=== PATIENT | female | born 1960 | race Caucasian/White ===

== ENCOUNTER 2024-07-03 10:11 | Outpatient (AMB) | payer MEDICARE, SELFPAY ==
--- NOTE | 2024-07-03 10:23 | A.OFFPC_ITS ---
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 Intake Note: New patient visit Lumite Injector Required: No Allergies No Known Allergies Allergy (Verified 07/03/24 10:23) Tobacco use date assessed: 07/03/24 Fall risk assessment: No Falls in past year Last assessed Fall Risk: 07/03/24 Dental Screening Dental Screen Date: 07/03/24 Did you have a dental visit in the last 12 months?: No Did you have a dental problem in the last 6 months where you did not have access to dental care?: No Was dental information given to patient?: Patient declined HPI HPI Comments History of Present Illness Details This is a 64-year-old female with a past medical history of GERD, Escobedo's esophagus, tobacco use disorder, positive hep C antibody and a heart murmur presenting to [facility] care. Patient moved from [place] to [place] in 05/2023. Positive Cologuard-reviewed results of Cologuard dated 02/17/2023. Patient reports last PCP attempted to refer for colonoscopy before she relocated, but it could not be done. Patient thinks her last colonoscopy was possibly in 2019. She does not recall a history of polyps. Denies family history of colon cancer. She has not seen blood in her stools or experienced weight loss or abdominal pain. She has occasional diarrhea. GERD is treated with pantoprazole 40 mg daily, but she ran out of it months ago. She has a history of Escobedo's esophagus. She has had a few EGDs. Patient also reports she has a hiatal hernia. She saw a surgeon, and she was not a candidate for surgical repair. She is a smoker. One pack lasts for a week. Patient tells me that 30 years ago she also had an episode of jaundice, and she was told she had hepatitis-C. She was not treated, and symptoms resolved. She had blood work done in 2021 which I reviewed-negative hep C antibody and no detectable viral load. HIV testing negative in 2021. Asthma is treated with Ventolin as needed. She requires it rarely. She endorses borderline high cholesterol levels. She is not treated with cholesterol medication. She has a mild heart murmur on exam. Patient reports she was told this in the past, and she takes prophylactic amoxicillin before dental procedures. She thinks she has had an echo in the past. She does not remember the details or results. She is due for mammogram and bone density exam. These tests are ordered. ROS: Constitutional: No unexplained weight loss, fever, chills, fatigue or night sweats. Respiratory: No shortness of breath, cough or sputum production. Cardiovascular: No chest pain, chest pressure or chest discomfort. No palpitations or pedal edema. Gastrointestinal: No anorexia, nausea, vomiting or diarrhea. No abdominal pain or blood in stool. Physical exam: Constitutional: Alert, in no distress. Head: Normocephalic. Neck: Supple, Full range of motion. No lymphadenopathy. No palpable thyroid masses. Respiratory: Clear to auscultation. Cardiovascular: S1 S2 regular. I/ murmur Gastrointestinal: Abdomen soft, non-tender, non-distended. Normal bowel sounds. No palpable masses. Skin: Warm, dry Psychiatric: Normal mood and affect [facility] Medical History (Updated 07/03/24 @ 11:28 by WALTER Quiles) Screening for diabetes mellitus (DM) Heart murmur Tobacco use disorder Escobedo esophagus History of positive hepatitis C Positive colorectal cancer screening using Cologuard test Family History (Updated 11/03/23 @ 17:05 by Jeni Gilman [facility]) Unknown Family history of colon cancer Social History Housing: [facility] Patient Tobacco Use Status: Current everyday Tobacco user Cigarette Packs Per Day: 0.25 Years Smoked: 40 e-Cigarette/Vaping Use: Never Used Second Hand Smoke Exposure: No service: Yes 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 1. Little interest or pleasure in doing things: not at all 2. Feeling down, depressed, or hopeless: several days 3. Trouble falling or staying asleep, or sleeping too much: several days 4. Feeling tired or having little energy: several days 5. Poor appetite or overeating: several days 6. Feeling bad about yourself - or that you are a failure or have let yourself or your family down: not at all 7. Trouble concentrating on things, such as reading the newspaper or watching television: not at all 8. Moving or speaking so slowly that other people could have noticed. Or the opposite - being so fidgety or restless that you have been moving around a lot more than usual: not at all 9. Thoughts that you would be better off or of hurting yourself in some way: not at all Total score: 4 Source: Developed by Drs. Fracisco Edward, Klaudia Peters, Main Grant and colleagues, with an educational felipe from [employer]. Thrive Questionnaire I am a: Patient What is your living situation today?: I have a steady place to live Within the past 12 months, did the food you bought not last and you didn't have the money to get more?: Never true Within the past 12 months, did you worry whether your food would run out before you got money to buy more?: Sometimes True Do you have trouble paying for medicines?: Yes Do you have trouble getting transportation to medical appointments?: No Do you have trouble paying your heating and electricity bill?: Yes Do you have trouble taking care of your child, family member or friend?: No Do you have trouble with day-to-day activities such as bathing, preparing meals, shopping, managing finances, etc.?: No Are you currently unemployed and looking for a job?: No Are you interested in more education?: No Please select the resources that you would like help with: Utilities Currently or been in a relationship where the following occur: No concerns reported THRIVE Score: 2 AUDIT C Alcohol Use Questionnaire (AUDIT-C) 1. How often do you have a drink containing alcohol?: Monthly or less 2. How many drinks containing alcohol do you have on a typical day when you are drinking?: 1 or 2 3. How often do you have six or more drinks on one occasion?: Never Total Score: 1 HAYDEN-7 AMB Questionnaire HAYDEN-7 Feeling nervous, anxious, or on edge: 1 = Several days Not being able to stop or control worryin = Several days Worrying too much about different things: 0 = Not at all Trouble relaxin = Not at all Being so restless that it is hard to sit still: 0 = Not at all Feeling afraid as if something awful might happen: 1 = Several days Source: Developed by Drs. Fracisco Edward, Klaudia Peters, Main Grant and colleagues, with an educational felipe from [employer]. Physical exam (Primary Care) Vital Signs: Last Vital Signs Pulse 80 07/03/24 10:33 Resp 14 07/03/24 10:33 BP 114/60 07/03/24 10:33 Pulse Ox 99 07/03/24 10:33 Oxygen Delivery Method Room Air 07/03/24 10:33 BMI result Body Mass Index 36.4 Tobacco/Smoking Status: Tobacco use Status Tobacco use date assessed 07/03/24 07/03/24 10:26 Patient Tobacco Use Status Current everyday Tobacco 07/03/24 10:35 e-Cigarette/Vaping Use Never Used 07/03/24 10:26 PHQ-9: PHQ-9 Score PHQ-9: Total score 4 07/03/24 11:00 Currently or been in a relationship where the following occur: No concerns reported Coding Level of Care Code New Pt Level 4 (54790) Complex EM visit Add On G2211 Diagnoses History of positive hepatitis C Z86.19 Gastroesophageal reflux disease without esophagitis K21.9 Esophagitis presence: without esophagitis Positive colorectal cancer screening using Cologuard test R19.5 Escoebdo esophagus K22.70 Tobacco use disorder F17.200 Heart murmur R01.1 Assessment & Plan Assessment & Plan (1) History of positive hepatitis C: Code(s): Z86.19 - Personal history of other infectious and parasitic diseases Category: Medical Plan: Check hepatitis a, B and C profile and hep C viral load. Reassured patient that last testing was negative. Declines additional screening for STIs. (2) GERD (gastroesophageal reflux disease): Code(s): K21.9 - Gastro-esophageal reflux disease without esophagitis Category: Medical Qualifiers: Esophagitis presence: without esophagitis Qualified Code(s): K21.9 - Gastro-esophageal reflux disease without esophagitis Plan: GERD and Escobedo's esophagus treatment discussed with patient. The importance of smoking cessation is reviewed. Restart pantoprazole 40 mg daily. Refer to Gastroenterology. (3) Positive colorectal cancer screening using Cologuard test: Code(s): R19.5 - Other fecal abnormalities Category: Medical Plan: Referred urgently (since this result was over a year ago) to Gastroenterology for consideration of colonoscopy. (4) Escobedo esophagus: Code(s): K22.70 - Escobedo's esophagus without dysplasia Category: Medical Plan: See above notes on GERD and Escobedo's. (5) Tobacco use disorder: Code(s): F17.200 - Nicotine dependence, unspecified, uncomplicated Category: Medical Plan: Patient declines referral or medications for smoking cessation. She will quit again on her own, she says. (6) Heart murmur: Code(s): R01.1 - Cardiac murmur, unspecified Category: Medical Plan: I will review her medical records and order and order follow up echocardiogram or cardiology consult if appropriate. Plan Follow up in 8 weeks to review labs. Orders: Orders TSH reflex Free T4 Today K21.9 - Gastro-esophageal reflux disease without esophagitis, Z13.6 - Encounter for screening for cardiovascular disorders Hepatitis A IgM Today Z86.19 - Personal history of other infectious and parasitic diseases HCV RNA QN PROG TO GENOTYPE Today Z86.19 - Personal history of other infectious and parasitic diseases MM screening mammo BI Today Z12.31 - Encounter for screening mammogram for malignant neoplasm of breast XR DEXA axial skeleton Today N95.1 - Menopausal and female climacteric states Lipid Panel Today E78.5 - Hyperlipidemia, unspecified, K21.9 - Gastro- esophageal reflux disease without esophagitis, Z13.6 - Encounter for screening for cardiovascular disorders Comprehensive Met. Panel Today K21.9 - Gastro-esophageal reflux disease without esophagitis, Z13.6 - Encounter for screening for cardiovascular disorders Complete Blood Count no Diff Today K21.9 - Gastro-esophageal reflux disease without esophagitis, Z13.6 - Encounter for screening for cardiovascular disorders Hepatitis A,B,C Profile Today Z86.19 - Personal history of other infectious and parasitic diseases Referrals Gastroenterology Referral K21.9 - Gastro-esophageal reflux disease without esophagitis, K22.70 - Escobedo's esophagus without dysplasia, R19.5 - Other fecal abnormalities, Z86.19 - Personal history of other infectious and parasitic diseases Medications: New pantoprazole 40 mg PO DAILY 90 tabs 3RF
[2024-07-03 10:33] VITALS: BP 114/60; PULSE 80; RESP 14; O2SAT 99; BMI 36.4
== END 2024-07-03 11:19 | disposition home or self-care (01) ==
PROVIDERS: Visit Provider Physician Assistant Medical
DX: Z86.19 Personal history of other infectious and parasitic diseases (principal); K21.9 Gastro-esophageal reflux disease without esophagitis; R19.5 Other fecal abnormalities; K22.70 Barrett's esophagus without dysplasia; F17.200 Nicotine dependence, unspecified, uncomplicated; R01.1 Cardiac murmur, unspecified

== ENCOUNTER → 2024-07-03 10:11 | Outpatient (BNVA) | payer MEDICARE, SELFPAY | PROVIDERS: Visit Provider Physician Assistant Medical | DX: K21.9 Gastro-esophageal reflux disease without esophagitis (principal); K22.70 Barrett's esophagus without dysplasia; R19.5 Other fecal abnormalities; R01.1 Cardiac murmur, unspecified; F17.210 Nicotine dependence, cigarettes, uncomplicated; Z86.19 Personal history of other infectious and parasitic diseases | CPT/HCPCS: 96127; 99202 ==

== ENCOUNTER 2024-07-13 09:04 | Outpatient (AMB) | payer MEDICARE, SELFPAY ==
--- NOTE | 2024-07-13 09:10 | A.OFFPC_ITS ---
Vital Signs 07/13/24 09:14 Height 4 ft 11 in Weight 178 lb 6 oz BMI 36.0 BP 124/56 L Blood Pressure Location Lt brachial Position Sitting Respiration 14 Pulse 73 Pulse Source Pulse Oximeter Temp 98.7 F Temp Source Skin Pulse Oximetry (%) 98 Oxygen Delivery Method Room Air Intake Visit Reasons: Dizziness Intake Note: Patient here just for follow up and patient needs refill on meds [employer] Required: No Allergies No Known Allergies Allergy (Verified 07/13/24 09:13) Tobacco use date assessed: 07/03/24 Dental Screening Dental Screen Date: 07/03/24 HPI HPI Comments History of Present Illness Details This is a 64-year-old female with a past medical history of esophageal dysmotility, depression, heart murmur, Barretts esophagus and GERD presenting for a problem visit. She recently established care, and when the nurse reached back out to her to let her know I had scheduled an echocardiogram for evaluation of her known heart murmur, she informed her that she has been having chest pains intermittently for the past 10 years numbness in her feet. The patient reports she has been evaluated for chest pain in the past. The episodes last 15-20 minutes. They occur abruptly and are described as an 8/10 sharp aching across the chest. When they occur she lays down and takes 2 aspirin, and the pain subsides. They are not triggered by a specific activity like walking, running or eating. Sometimes she has nausea with the pain. The pain does not radiate. She has no neck or jaw discomfort or heaviness in her arms. She endorses some dyspnea on exertion for the past 2-3 years. She feels more easily fatigued with exertion. She does not have chest pain with exertion. Patient says she can go up 2 flights of stairs but then she has to stop and rest. She has a diagnosis of asthma. She uses an inhaler as needed rarely. Her chief asthma symptom is wheezing. She does not get coughing or wheezing with WARD. Patient says she has had many EKGs for evaluation of chest pain, and they are normal. Patient says her past primary care provider attributed the symptoms to reflux. She went to [facility] in October of this year for evaluation of chest pain. She had a negative chest x-ray, and her EKG showed normal sinus rhythm and no ischemic changes. We obtained the ER visit notes. She endorses numbness on the bottoms of her feet that started a year ago. The left is more significant than the right. It is not painful. She says it is a little puffy and discolored. She has only mild intermittent lower back pain. Back pain does not radiate down her legs. There is no loss of bowel or bladder control. She denies weakness in her feet or legs. No known history of diabetes. She was an alcoholic, but she quit drinking 30 years ago. She requests a referral for an eye exam. ROS: Constitutional: No unexplained weight loss, fever, chills, fatigue or night sweats. Respiratory: See HPI. Cardiovascular: No palpitations. See HPI. Neurologic: No headache, dizziness, syncope Hematologic/Lymphatics: No bleeding or bruising. Endocrine: No cold or heat intolerance. No polyuria or polydipsia. Physical exam: Constitutional: Alert, in no distress. Head: Normocephalic. Neck: Supple, Full range of motion. No lymphadenopathy. No palpable thyroid masses. Respiratory: Clear to auscultation. Cardiovascular: S1 S2 regular. 1/6murmur. Neurologic: No focal neurological deficits. Extremities: DP pulses 2+ bilaterally. The plantar surfaces of the feet are slightly mottled, bilateral capillary refill is greater than 3 seconds. There are significant varicose veins on the lower extremities and feet. There is mild edema of the plantar surfaces of the feet. Psychiatric: Normal mood and affect [facility] Medical History (Updated 07/13/24 @ 14:05 by WALTER Quiles) Mild asphyxia WARD (dyspnea on exertion) Varicose veins of both legs with edema Varicose veins of ankle Chest pain Numbness in feet Esophageal dysmotility History of depression History of malignant neoplasm of cervix Screening for diabetes mellitus (DM) Heart murmur Tobacco use disorder Escobedo esophagus History of positive hepatitis C Positive colorectal cancer screening using Cologuard test Surgical History (Updated 07/03/24 @ 13:34 by WALTER Quiles) S/P surgery on nasal septum History of tonsillectomy Family History (Updated 11/03/23 @ 17:05 by GENET Tay) Unknown Family history of colon cancer Social History Housing: House Patient Tobacco Use Status: Current everyday Tobacco user Cigarette Packs Per Day: 0.25 Years Smoked: 40 e-Cigarette/Vaping Use: Never Used Second Hand Smoke Exposure: No service: Yes 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 93667 - PHQ-9 Billing: Patient declined-do not bill Source: Developed by Drs. Fracisco Edward, Klaudia Peters, Main Grant and colleagues, with an educational felipe from [employer]. Thrive Questionnaire Date Thrive assessed: 07/13/24 I am a: Patient What is your living situation today?: I have a steady place to live Within the past 12 months, did the food you bought not last and you didn't have the money to get more?: Never true Within the past 12 months, did you worry whether your food would run out before you got money to buy more?: Sometimes True Do you have trouble paying for medicines?: Yes Do you have trouble getting transportation to medical appointments?: No Do you have trouble paying your heating and electricity bill?: Yes Do you have trouble taking care of your child, family member or friend?: No Do you have trouble with day-to-day activities such as bathing, preparing meals, shopping, managing finances, etc.?: No Are you currently unemployed and looking for a job?: No Are you interested in more education?: No Please select the resources that you would like help with: Utilities Currently or been in a relationship where the following occur: No concerns reported THRIVE Score: 2 HAYDEN-7 AMB Questionnaire HAYDEN-7 Date HAYDEN - 7 assessed: 07/13/24 Feeling nervous, anxious, or on edge: 0 = Not at all Not being able to stop or control worryin = Not at all Worrying too much about different things: 0 = Not at all Trouble relaxin = Not at all Being so restless that it is hard to sit still: 0 = Not at all Becoming easily annoyed or irritable: 2 = More than half the days Feeling afraid as if something awful might happen: 0 = Not at all Total HAYDEN-7 score (0-4 normal; 5-9 mild; 10-14 moderate; 15-21 severe): 2 Source: Developed by Drs. Fracisco Edward, Klaudia Peters, Main Grant and colleagues, with an educational felipe from [employer]. HAYDEN-7 Assessment Billing HAYDEN-7 Assessment Tool: HAYDEN-7 Assessment 26997 Physical exam (Primary Care) Vital Signs: Last Vital Signs Temp 98.7 F 07/13/24 09:14 Pulse 73 07/13/24 09:14 Resp 14 07/13/24 09:14 BP 124/56 L 07/13/24 09:14 Pulse Ox 98 07/13/24 09:14 Oxygen Delivery Method Room Air 07/13/24 09:14 BMI result Body Mass Index 36.0 Tobacco/Smoking Status: Tobacco use Status Tobacco use date assessed 07/03/24 07/13/24 09:12 Patient Tobacco Use Status Current everyday Tobacco 07/13/24 09:12 e-Cigarette/Vaping Use Never Used 07/13/24 09:12 Thrive Assessment: Date of Thrive Assessment Date Thrive assessed 07/13/24 07/13/24 09:12 Currently or been in a relationship where the following occur: No concerns reported Coding Level of Care Code Est Pt Level 5 (34004) Complex EM visit Add On G2211 Diagnoses Chest pain R07.9 Varicose veins of both legs with edema I83.893 WARD (dyspnea on exertion) R06.09 Additional Codes HAYDEN-7 Assessment Billing - HAYDEN-7 Assessment Tool: HAYDEN-7 Assessment 21356 ([id number]) Time Spent (min) 47 Comment Direct patient care, records review and completing documentation Assessment & Plan Assessment & Plan (1) Chest pain: Code(s): R07.9 - Chest pain, unspecified Category: Medical (2) Varicose veins of both legs with edema: Code(s): I83.893 - Varicose veins of bilateral lower extremities with other complications Category: Medical (3) WARD (dyspnea on exertion): Code(s): R06.09 - Other forms of dyspnea Category: Medical Plan I ordered an echocardiogram previously for evaluation of the murmur which I suspect is unrelated to chest pain. Discussed this may be related to esophageal spasms and GERD based on description. Does not get exertional chest pain. I will proceed with nuclear stress test given reports of WARD and risk factors for atherosclerotic heart disease in this patient with a history of tobacco use. Warning signs warranting ER evaluation of chest pain reviewed with the patient. Chest x-ray negative at ED within the past year. Ordered PFT due to WARD. She will have her labs completed. Patient has bilateral significant varicosities and lower extremity symptoms. Refer to vascular surgery. Owing to report of numbness we will check electrolytes, magnesium, B12 and hemoglobin A1c. We will consider EMG for further evaluation. She has a follow up scheduled with me in August. Orders: Orders Vitamin B12 Today R20.0 - Anesthesia of skin Hemoglobin A1c Today R20.0 - Anesthesia of skin PFT pulmonary function test Today P84 - Other problems with , R06.09 - Other forms of dyspnea NM cardiolite stress test Today R06.09 - Other forms of dyspnea, R07.9 - Chest pain, unspecified Magnesium Today R20.0 - Anesthesia of skin CA stress test Today R06.09 - Other forms of dyspnea, R07.9 - Chest pain, unspecified Referrals Vascular Surgery Referral I83.893 - Varicose veins of bilateral lower extremities with other complications, I83.90 - Asymptomatic varicose veins of unspecified lower extremity, R20.0 - Anesthesia of skin Patient Instructions: You will be called to schedule an appointment with the vascular specialist. Please have fasting labs completed at your earliest convenience. I am going order pulmonary function test. You will be called to schedule it. You will be called to schedule a stress test.
[2024-07-13 09:14] VITALS: BP 124/56; PULSE 73; RESP 14; TEMP 37.1; O2SAT 98; BMI 36.0
== END 2024-07-13 09:49 | disposition home or self-care (01) ==
LOC: HO.HMCFM 09:04
PROVIDERS: PCP Physician Assistant Medical; Visit Provider Physician Assistant Medical
DX: R07.9 Chest pain, unspecified (principal); I83.893 Varicose veins of bilateral lower extremities with other complications; R06.09 Other forms of dyspnea

== ENCOUNTER → 2024-07-13 09:04 | Outpatient (BNVA) | payer MEDICARE, SELFPAY | PROVIDERS: Visit Provider Physician Assistant Medical | DX: R07.9 Chest pain, unspecified (principal); R01.1 Cardiac murmur, unspecified; R06.09 Other forms of dyspnea; I83.893 Varicose veins of bilateral lower extremities with other complications | CPT/HCPCS: 96127; 99212 ==

== ENCOUNTER 2024-07-21 08:50 | Outpatient (AMB) | payer MEDICARE, SELFPAY ==
--- NOTE | 2024-07-21 08:55 | A.OFFVIS_ITS ---
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 Patient states she has veins on her ankles and calves. States she has swelling in her calves as well. 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 She states she also has some calf swelling that occurs. She does spend most of her days on her feet. Complaints include pain in her calves, slight swelling of lower extremities, cramping, fatigue, and heaviness of the lower extremities intermittently. It has been affecting their daily activities including walking and standing. It equal bilaterally in both lower extremities. She smokes approximately 1 pack per week, but has been a smoker for an extended period of time. She is nondiabetic Patient denies any previous venous surgery or injections. Patient denies any history of DVT/ PE. Patient denies any history of phlebitis. Trial of compression includes - elevation helps a little bit. She has not tried compression stockings yet They now present for vascular evaluation regarding their varicose veins. [facility] Medical History Mild asphyxia WARD (dyspnea on exertion) Varicose veins of both legs with edema Varicose veins of ankle Chest pain Numbness in feet Esophageal dysmotility History of depression History of malignant neoplasm of cervix Screening for diabetes mellitus (DM) Heart murmur Tobacco use disorder Escobedo esophagus History of positive hepatitis C Positive colorectal cancer screening using Cologuard test Surgical History S/P surgery on nasal septum History of tonsillectomy Family History Unknown Family history of colon cancer Social History Housing: House Patient Tobacco Use Status: Current everyday Tobacco user Cigarette Packs Per Day: 0.25 Years Smoked: 40 e-Cigarette/Vaping Use: Never Used Second Hand Smoke Exposure: No service: Yes 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[employer], 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.) Current occupational exposures/hazards: No Cognitive needs: No Hearing needs: Yes (Need ears flushed.) Vision needs: No Review of Systems Const Reports as per HPI and Denies weakness ENT Reports Normal hearing present and Denies dizziness Card Reports as per HPI, Denies chest pain, Denies chest pain at rest, Denies chest pain with activity, Denies dyspnea and Denies dyspnea on exertion Resp Reports as per HPI, Denies cough, Denies dyspnea and Denies dyspnea on exertion GI Reports as per HPI, Denies abdominal pain, Denies nausea and Denies vomiting Musc Denies numbness Skin/Breast Reports as per HPI, Denies erythema and Denies wounds Neuro Reports Normal hearing present, Denies dizziness, Denies numbness, Denies Sensory deficit (Neuro) and Denies weakness Psych Reports no additional complaints Endo Reports no additional complaints Physical Exam Const General: healthy appearing and no acute distress Orientation/consciousness: patient oriented x3 HEENT Head: Yes normal to inspection Ears: hearing grossly normal bilaterally Mouth: Normal oral and palatal mucosa present Resp Effort & Inspection: normal respiratory effort and able to speak in complete sentences Auscultation: clear to auscultation bilaterally Cardio Jugular venous distension: no JVD Rate: regular rate Rhythm: regular rhythm Heart sounds: S1 normal heart sound present and S2 normal heart sound present Bruits: no abdominal aortic bruits, no carotid bruits, no femoral bruits and no renal bruits Peripheral pulses: Peripheral pulses 2+ throughout GI Inspection: Yes normal to inspection Palpation (GI): No Abdominal aortic bruit present Skin General skin exam: no rashes or lesions noted Wounds: no wounds Hair: normal Neuro General: patient oriented x3 Cranial nerves: Yes Normal hearing present Cognition (Neuro): normal cognition Gait exam (Neuro): Normal gait present Motor exam (neuro): 5/5 motor strength present throughout Sensory Exam: No Sensory deficit (Neuro) Extrem Other: Bilateral lower extremities: Spider veins noted around her her ankles and onto her feet. There are also spider veins on her upper thighs on the anterior aspect. Trace peripheral edema bilaterally. Palpable DP pulses. CEAP: C - 3 E - primary A - superficial P - reflux General: Yes normal to inspection, Yes full ROM, Yes capillary refill normal and Yes normal gait Assessment & Plan Assessment & Plan (1) Varicose veins of both lower extremities with inflammation: Code(s): I83.11 - Varicose veins of right lower extremity with inflammation; I83.12 - Varicose veins of left lower extremity with inflammation Category: Medical Plan: Molly is presenting today as a referral from her PCP for ongoing varicose veins over the last couple of years. She is on her feet most days. She has used some elevation as a conservative measure which she states helps only a little bit. In short, the patient has evidence of venous insufficiency. I have discussed the pathophysiology with the patient. In addition I have provided informational material regarding venous disease to the patient. We have discussed conservative measures including compression, elevation, and exercise. I have also provided a handout regarding appropriate use of compression stockings and where to purchase good compression stockings as well. I have taken the liberty of ordering venous insufficiency testing with the patient. They will follow up with me after testing. The patient had an opportunity to ask questions regarding the treatment plan. All questions were answered. No major barriers to understanding were identified. The patient expressed understanding and agreement with the above treatment plan. The patient is aware they should contact our office by phone for worsening of the current condition or the appearance of new symptoms. Thank you for allowing me to participate in the vascular care of this patient. If you have any questions or concerns regarding the treatment for the above condition please do not hesitate to contact me. The office telephone contact is [phone]. This note is constructed using voice recognition software. While every effort has been made to ensure accuracy, shredded filler machine wrapper layer errors may have been included. Thank you for allowing me to participate in the care of your patient. Yours sincerely, WALTER Shi Orders: Orders US venous duplex LE BI 1 Week I83.11 - Varicose veins of right lower extremity with inflammation, I83.12 - Varicose veins of left lower extremity with inflammation Coding Level of Care Code New Pt Level 4 (97708) Diagnoses Varicose veins of both lower extremities with inflammation I83.11; I83.12
== END 2024-07-21 09:13 | disposition home or self-care (01) ==
PROVIDERS: PCP Physician Assistant Medical; Visit Provider Physician Assistant Surgical
DX: I83.11 Varicose veins of right lower extremity with inflammation (principal); I83.12 Varicose veins of left lower extremity with inflammation
CPT/HCPCS: 99204

== ENCOUNTER → 2024-07-21 08:50 | Outpatient (BNVA) | payer MEDICARE, SELFPAY | PROVIDERS: PCP Physician Assistant Medical; Visit Provider Physician Assistant Surgical | DX: I83.11 Varicose veins of right lower extremity with inflammation (principal); I83.12 Varicose veins of left lower extremity with inflammation | CPT/HCPCS: 99202 ==

== ENCOUNTER → 2024-07-28 09:06 | Outpatient (REF) | payer MEDICARE, SELFPAY ==
--- NOTE | 2024-07-28 09:09 | CA_ITS ---
Transthoracic Echocardiogram Patient (Last, First, Middle): Molly Trotter, Gender: Female Date of : 1960 Age: 64 Procedure Date: 07/28/2024 Procedure Type: Transthoracic Echocardiogram Location: OP Height: 152.4 cm Weight: 79.61 kg BSA: 1.77 m2 Heart Rate: 68 bpm BP: 110 / 62 mmHg Resident Athletic Trainer: JEAN-PAUL Espinosa MD: Frieda WATSON [employer] Sales [employer] Management: Malcolm Mast MD Symptoms: R01.1 - Cardiac murmur, unspecified Study Quality: Fair ECG Rhythm: Sinus Conclusions: - Essentially normal study Findings Left Ventricle Normal left ventricular size, thickness, and systolic function. The visually estimated ejection fraction is between 65-70%. Spectral Doppler is indicative of a normal filling pattern. Right Ventricle Normal right ventricular cavity size and systolic function. Atria Both atria are normal in size. There is lipomatous hypertrophy of the interatrial septum. There is no evidence of interatrial shunt. Aortic Valve The aortic valve structure and function is likely normal. There is no aortic valve stenosis. There is no aortic valve regurgitation. Mitral Valve Normal mitral valve structure and function. There is trace mitral valve regurgitation. There is no mitral valve stenosis. Pulmonic Valve The pulmonic valve was not well visualized. Tricuspid Valve Likely normal tricuspid valve structure and function. There is trace tricuspid valve regurgitation. The right ventricular systolic pressure is normal. The right ventricular systolic pressure is 23 mmHg. Normal right atrial pressure. There is no evidence of pulmonary hypertension. Great Vessels All visible segments of the aorta are normal in size. The pulmonary artery was not well visualized. There is no dilatation of the ascending aorta measuring 3.00 cm. Venous The inferior vena cava is normal in size and collapses greater than 50% with inspiration. Pericardium/Pleural There is no evidence of pericardial effusion. Prior Study Comparison No prior study available for comparison. Measurements 2D Linear Measurements IVSd: 1.14 0.6-0.9/0.6-1.0 cm LVIDd: 3.21 3.9-5.3/4.2-5.9 cm LVIDd Index: 1.81 2.4-3.2/2.2-3.1 cm/m2 LVIDs: 1.98 2.0-3.6 cm LVPWd: 1.00 0.7-1.1 cm LA Diam: 3.70 2.7-3.8/3.0-4.0 cm LAIDs Index: 2.09 1.5-2.3 cm/m2 LV Mass: 124.59 67-162/88-224 g LV Mass Index: 70.39 43-95/49-115 g/m2 LVOT Diam: 1.80 3.0+(-)1.3 cm 2D Systolic Function EF 4C: 68.50 >55% EF 2C: 74.80 >55% EF BiP: 71.60 >55% Mitral Valve MV Pk E: 0.97 MV PK A: 0.99 MV Decel Time: 231.00 E/A: 1.00 E'Lateral: 6.74 E'Medial: 5.44 E/E' Med: 17.80 E/E' Lat: 14.40 PHT: 68.00 MVA PHT: 3.24 Decel Osborne: 4.20 Aortic Valve AoV Pk Sotero: 1.92 AoV Mn Sotero: 1.32 AoV VTI: 0.41 AoV Pk Grad: 15.00 Aov Mn Grad: 8.00 RAQUEL Cont.VTI: 2.09 LVOT LVOT Pk Sotero: 1.66 LVOT Mn Sotero: 1.00 LVOT VTI: 0.34 LVOT Pk Grad: 11.00 LVOT Mn Grad: 5.00 LVOT Diam: 1.80 LVOT Area: 2.54 Diastolic Function MV Pk E: 0.97 MV Pk A: 0.99 E/A: 1.00 E'Medial: 5.44 E/E' Med: 17.80 E' Laterial: 6.74 E/E' Lat: 14.40 Right Ventricle TAPSE (mm): 23.20 TVS' Sotero: 13.70 Tricuspid Valve TR Pk Sotero: 2.23 TR Pk Grad: 20.00 RA Press: 3.00 RVSP: 23.00 Great Vessels Aorta Sinus of Valsalva: 3.10 2.0-3.5 cm Ao Asc: 3.00 2.1-3.4 cm Pulmonary Valve PV Pk Sotero: 1.14 Peak PV Grad: 5.00 Updated in Other Vendor System with Status of Final Malcolm Mast MD electronically signed on 07/28/2024 4:17:33 PM with status of Final
== END | disposition home or self-care (01) ==
LOC: HO.CARD 09:06
PROVIDERS: Visit Provider Physician Assistant Medical
DX: R01.1 Cardiac murmur, unspecified (principal)
CPT/HCPCS: 93306

== ENCOUNTER → 2024-07-28 09:09 | Outpatient (BNV) | payer MEDICARE, SELFPAY | PROVIDERS: Visit Provider Internal Medicine Cardiovascular Disease | DX: R01.1 Cardiac murmur, unspecified (principal) | CPT/HCPCS: 93306 ==

== ENCOUNTER 2024-08-21 08:30 | Outpatient (AMB) | payer MEDICARE, MEDICAID, SELFPAY ==
[2024-08-21 08:37] VITALS: BP 128/62; PULSE 82; O2SAT 98; BMI 36.8
--- NOTE | 2024-08-21 08:37 | A.OFFVIS_ITS ---
Vital Signs 08/21/24 08:37 Height 4 ft 11 in Weight 182 lb 1.629 oz BMI 36.8 BP 128/62 Blood Pressure Location Rt brachial Position Sitting Pulse 82 Pulse Source Pulse Oximeter Pulse Oximetry (%) 98 Oxygen Delivery Method Room Air Intake Visit Reasons: GERD, Hx Parasitic Disease, Barretts, Fecal ABN Intake Note: NEW PATIENT Molly presents in office today for a scheduled initial assessment and consult. Prior hx of colo/egd? ~ 2019 per pt. Recently positive cologuard. Meds and Allergies reviewed? Y Any significant concerns or questions? Pt is just concerned about the general details of colonoscopy and the possible interaction they have hx of related to colo prep. Pt also reports intermittent constipation and diarrhea. Pharmacy verified? [facility] [address] [place] Important FMHx? Pt denies any pertinent fmhx Guidance Services Coordinator Required: No Allergies azithromycin Adverse Reaction (Intermediate, Verified 08/21/24 09:00) Nausea colonoscopy prep Adverse Reaction (Intermediate, Uncoded 08/21/24 09:00) Nausea HPI Comments Details: 64 y.o F with PMH of GERD, BE, smoker who is here to establish care. Pt had a cologuard test in February 2023 which was POSITIVE however she then moved from [place] May 2023 before colo could be done (prev GI Dr Saw Sparks in [facility]). Once she estabished care with local PCP winter 2022 a referral was generated but a colo could not take place due to multiple barriers. Was able to switch insurance and PCP again earlier this year and is now here for follow up colonoscopy. Pt herself reports having a change in bowel habits and occ blood in stool. It is unclear why a cologuard was ordered and not a diagnostic colonoscopy for these sx. Pt also has hx of hiatal hernia and reported BE and at one point was getting EGDs every 1-2 years. Takes pantoprazole 40 once a day. Last endoscopy: EGD/colo 2019 - BE (pt told was improving), no polyps. Fam hx of CRC in pat grandfather in his 70s. Sister with UC diagnosed in her 20s with surgical history. Pt smokes 2-4 cigs/day prev 1PPD x 40 years. No etOH use. Occ takes ibuprofen. PCP notes reviewed - also ? of HCV. Pt reports having an admission in the hospital for yellow eyes in 80s which was determined to be of unknown cause. ON LICENSE OF [facility] Medical History Mild asphyxia WARD (dyspnea on exertion) Varicose veins of both legs with edema Varicose veins of ankle Chest pain Numbness in feet Esophageal dysmotility History of depression History of malignant neoplasm of cervix Screening for diabetes mellitus (DM) Heart murmur Tobacco use disorder Escobedo esophagus History of positive hepatitis C Positive colorectal cancer screening using Cologuard test Surgical History S/P surgery on nasal septum History of tonsillectomy Family History Unknown Family history of colon cancer Social History Housing: House Patient Tobacco Use Status: Current everyday Tobacco user Cigarette Packs Per Day: 0.25 Years Smoked: 40 e-Cigarette/Vaping Use: Never Used Second Hand Smoke Exposure: No service: Yes 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, 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.) Current occupational exposures/hazards: No Cognitive needs: No Hearing needs: Yes (Need ears flushed.) Vision needs: No Review of Systems Const All systems reviewed & are unremarkable except as noted in HPI and below Physical Exam Vital Signs: Last Vital Signs Pulse 82 08/21/24 08:37 BP 128/62 08/21/24 08:37 Pulse Ox 98 08/21/24 08:37 Oxygen Delivery Method Room Air 08/21/24 08:37 BMI result Body Mass Index 36.8 No apparent distress Nonicteric Abdomen soft, nondistended Alert and oriented x3, normal gait Assessment & Plan Assessment & Plan (1) Positive colorectal cancer screening using Cologuard test: Code(s): R19.5 - Other fecal abnormalities Category: Medical (2) Escobedo esophagus: Code(s): K22.70 - Escobeod's esophagus without dysplasia Category: Medical (3) GERD (gastroesophageal reflux disease): Code(s): K21.9 - Gastro-esophageal reflux disease without esophagitis Category: Medical Qualifiers: Esophagitis presence: without esophagitis Qualified Code(s): K21.9 - Gastro-esophageal reflux disease without esophagitis (4) Tobacco use disorder: Code(s): F17.200 - Nicotine dependence, unspecified, uncomplicated Category: Medical (5) History of positive hepatitis C: Code(s): Z86.19 - Personal history of other infectious and parasitic diseases Category: Medical (6) Heart murmur: Code(s): R01.1 - Cardiac murmur, unspecified Category: Medical Plan 1. Positive cologuard/change in bowel habits Overdue for colo. This will be set up on urgent basis. Pt describes intolerance to golytely but ok with miralax prep. Plan: - COlo to be booked urgently - Miralax/gatorade prep discussed and instructions reviewed 2. Hx of BE and hiatal hernia Since records not available re BE length and dysplasia presence will also caroline for EGD alongside. Needs one any way due to change in bowel habits and diarrhea. Plan: - EGD to be booked with colo - Barium swallow for eval of hiatal hernia 3. Hx of HCV? This is unclear Plan: - Labs already ordered by PCP. HBV core Ab added. 4. Heart murmur reported by pt. Echo reassuring. Follow up after EGD/colo. Orders: Orders Hepatitis B Core Antibody Today Z86.19 - Personal history of other infectious and parasitic diseases FL barium swallow Today K21.9 - Gastro-esophageal reflux disease without esophagitis Medications: New polyethylene glycol 3350 (Miralax) mix with 64 oz of gatorade for colonoscopy prep 238 grams PO ONCE 238 grams 0RF Coding Level of Care Code New Pt Level 5 (97189) Diagnoses Positive colorectal cancer screening using Cologuard test R19.5 Escobedo esophagus K22.70 Gastroesophageal reflux disease without esophagitis K21.9 Esophagitis presence: without esophagitis Tobacco use disorder F17.200 History of positive hepatitis C Z86.19 Heart murmur R01.1
== END 2024-08-21 10:34 | disposition home or self-care (01) ==
PROVIDERS: PCP Physician Assistant Medical; Visit Provider Internal Medicine
DX: K21.9 Gastro-esophageal reflux disease without esophagitis (principal); R19.5 Other fecal abnormalities; K22.70 Barrett's esophagus without dysplasia; Z86.19 Personal history of other infectious and parasitic diseases; R01.1 Cardiac murmur, unspecified
CPT/HCPCS: 99204

== ENCOUNTER → 2024-08-21 08:30 | Outpatient (BNVA) | payer MEDICARE, SELFPAY | PROVIDERS: PCP Physician Assistant Medical; Visit Provider Internal Medicine | DX: K21.9 Gastro-esophageal reflux disease without esophagitis (principal); K22.70 Barrett's esophagus without dysplasia; R19.5 Other fecal abnormalities; F17.210 Nicotine dependence, cigarettes, uncomplicated; Z86.19 Personal history of other infectious and parasitic diseases | CPT/HCPCS: 99202 ==

== ENCOUNTER 2024-08-22 08:47 | Outpatient (REF) | payer MEDICARE, MEDICAID, SELFPAY ==
--- NOTE | ~2024-08-22 | MM_ITS ---
EXAMINATION: BONE DENSITOMETRY CLINICAL INDICATION: Menopausal and female climacteric states. COMPARISON: This is the patient's baseline examination. TECHNIQUE: Using a [employer] DXA System (software version: 13.1) manufactured by [employer], dual-energy x-ray absorptiometry was performed of the lumbar spine and left hip. The images are of good technical quality. Summary results are attached. FINDINGS: LEFT FEMUR, NECK: BMD 0.827 g/cm2, Z-score -0.4, T-score -1.5, osteopenia. LEFT FEMUR, TOTAL: BMD 0.909 g/cm2, Z-score 0.1, T-score -0.8, normal. AP SPINE L2-L4 (excluding L1): The data of L1-L4 has been changed to exclude the L1 vertebral body, because significant degenerative change at this level may cause overestimation of lumbar spine density. BMD 0.957 g/cm2, Z-score -0.9, T-score -2.0, osteopenia. IDENTIFIED RISK FACTORS: Parental hip fracture, current smoker, menopause. HISTORY OF FRACTURE: None listed. MEDICATIONS: None listed. MM/XR DEXA axial skeleton IMPRESSION: 1. DIAGNOSIS: Osteopenia based on the lowest T-score value of -2.0 in the lumbar spine applying World Health Organization criteria. 2. 10-YEAR FRACTURE RISK PREDICTION, FRAX: Major osteoporotic fracture (clinical spine, forearm, hip or shoulder) 15.9%. Hip fracture 1.6%. 3. Treatment Recommendations: NOF guidelines recommend consideration for treatment in postmenopausal women and men age 50 and older presenting with the following: -A hip or vertebral (clinical or morphometric) fracture. -T-score less than or equal to -2.5 at the femoral neck or spine after appropriate evaluation to exclude secondary causes. -Low bone mass at the hip or spine and a 10-year fracture probability by FRAX of greater than or equal to 3% for hip fracture or greater than or equal to 20% for major osteoporotic fracture based on the [place] adapted WHO algorithm. 4. Other Recommendations: All treatment decisions require clinical judgment and consideration of individual patient factors, including patient preferences, comorbidities, previous drug use, risk factors not captured in the FRAX model (e.g. frailty, falls, vitamin D deficiency, increased bone turnover, interval significant decline in bone density) and possible under or overestimation of fracture risk by FRAX. Additional medical evaluation for secondary cause of low bone mineral density may be appropriate. FUTURE SCAN RECOMMENDATION: People with diagnosed cases of osteoporosis or at high risk for fracture should have regular bone mineral density tests. For patients eligible for Medicare, routine testing is allowed once every 2 years. The testing frequency can be increased to one year for patients who have rapidly progressing disease, those who are receiving or discontinuing medical therapy to restore bone mass, or have additional risk factors. Electronically signed by: Nba Giraldo MD 08/22/2024 04:28 PM NIKOLE GIFFORD
== END 2024-08-22 08:48 | disposition home or self-care (01) ==
LOC: HO.MAMMO 08:47
PROVIDERS: PCP Physician Assistant Medical; Visit Provider Physician Assistant Medical
DX: Z12.31 Encounter for screening mammogram for malignant neoplasm of breast (principal); Z13.820 Encounter for screening for osteoporosis; Z78.0 Asymptomatic menopausal state
CPT/HCPCS: 77063; 77067; 77080

== ENCOUNTER → 2024-08-22 09:00 | Outpatient (BNV) | payer MEDICARE, MEDICAID, SELFPAY | PROVIDERS: PCP Physician Assistant Medical; Visit Provider Internal Medicine | DX: Z12.31 Encounter for screening mammogram for malignant neoplasm of breast (principal) | CPT/HCPCS: 77063; 77067 ==

== ENCOUNTER 2024-08-23 12:18 | Outpatient (REF) | payer MEDICARE, MEDICAID, SELFPAY ==
[2024-08-23 12:52] LABS: Hematocrit 40.6 % (37.0-47.0); Hemoglobin 13.6 g/dl (12.0-16.0); Mean Corpuscular HGB Conc 33.5 g/dl (31.0-35.0); Mean Corpuscular Hemoglobin 26.7 pg (27.0-33.0); Mean Corpuscular Volume 79.6 fL (80.0-98.0); Mean Platelet Volume 9.7 fL (9.4-12.3); Platelet Count 590 X10*3/uL (160-400); Red Cell Distribution Width 17.3 % (11.0-16.0); White Blood Count 6.6 X10*3/uL (4.8-10.8)
[2024-08-23 12:56] LABS: Estimated Average Glucose 114 mg/dL; Hemoglobin A1c % 5.6 % (<6.0)
[2024-08-23 13:29] LABS: Alanine Aminotransferase 20 U/L (0-31); Alkaline Phosphatase 108 U/L (39-117); Anion Gap 9 (12-20); Aspartate Amino Transferase 26 U/L (5-31); Bilirubin Total 0.3 mg/dL (0.0-1.0); Blood Urea Nitrogen 16 mg/dL (9-16); Calcium 9.2 mg/dL (8.4-10.2); Carbon Dioxide 29 mmol/L (22-29); Chloride 105 mmol/L (96-108); Cholesterol 264 mg/dL (<200); Estimated Glomerular Filt Rate > 60; Glucose Random 95 mg/dL (60-115); HDL Cholesterol 70 mg/dL (>40); LDL Cholesterol Calculated 170 mg/dL (<100); Magnesium 2.1 mg/dL (1.6-2.6); Potassium 4.2 mmol/L (3.3-5.1); Sodium 139 mmol/L (135-145); Total Protein 7.3 g/dL (6.5-8.0); Triglycerides 120 mg/dL (<150)
[2024-08-23 13:43] LABS: TSH reflex Free T4 0.95 uIU/mL (0.32-4.0)
[2024-08-23 13:45] LABS: Hepatitis A Antibody IgM 0.32 Index (0-0.79); ~Hepatitis A Antibody IgM Nonreactive (Nonreactive)
[2024-08-23 13:48] LABS: Vitamin B12 417 pg/mL (200-900)
[2024-08-23 13:51] LABS: HBS Num1 0.37 mIU/mL (0-7.99); HBc Num1 0.19 S/CO (0.00-0.79); HBsAGNum1 0.39 S/CO (0.00-0.99); Hepatitis A Antibody IgM 0.29 Index (0-0.79); Hepatitis B Core Antibody Nonreactive (Nonreactive); Hepatitis B Surface Antigen Negative (Negative); ~HepC Num1 3.41 S/CO (0.00-0.79); ~Hepatitis A Antibody IgM Nonreactive (Nonreactive); ~Hepatitis B Surface Antibody NONREACTIVE (Nonreactive); ~Hepatitis C Antibody Reactive (Nonreactive)
[2024-08-24 19:29] LABS: HCV RNA PCR Qn <1.18 NOT DETECTED Log IU/mL (NOT DETECTED); HCV RNA PCR Qn <15 NOT DETECTED IU/mL (NOT DETECTED)
== END 2024-08-23 12:19 | disposition home or self-care (01) ==
LOC: HO.LAB 12:18
PROVIDERS: PCP Physician Assistant Medical; Visit Provider Physician Assistant Medical
DX: Z86.19 Personal history of other infectious and parasitic diseases (principal); K21.9 Gastro-esophageal reflux disease without esophagitis; Z13.6 Encounter for screening for cardiovascular disorders; R20.0 Anesthesia of skin; E78.5 Hyperlipidemia, unspecified; Z13.1 Encounter for screening for diabetes mellitus
CPT/HCPCS: 36415; 80053; 80061; 82607; 83036; 83735; 84443; 85027; 86704; 86706; 86709; 86803; 87340; 87522

== ENCOUNTER 2024-08-29 09:53 | Outpatient (REF) | payer MEDICARE, MEDICAID, SELFPAY ==
--- NOTE | 2024-08-29 10:00 | PFT_ITS ---
Flows: FEV1: 105 % of predicted at 2.16 L FVC: 104 % of predicted at 2.70 L FEV1/FVC: 80 % Bronchodilator response: Absent Volumes: Total lung capacity: 105 % of predicted at 4.59 L Residual volume: 116 % of predicted at 1.85 L Slow vital capacity: 98 % of predicted at 2.74 L Expiratory reserve volume: 72 % of predicted at 0.46 L Diffusion capacity: Normal Impression: No obstructive or restrictive ventilatory defect. No bronchodilator response. Normal pulmonary function test. MTDD
[2024-08-29 10:10] VITALS: PULSE 80; O2SAT 96
== END 2024-08-29 09:54 | disposition home or self-care (01) ==
LOC: HO.RESP 09:53
PROVIDERS: PCP Physician Assistant Medical; Visit Provider Physician Assistant Medical
DX: R06.09 Other forms of dyspnea (principal)
CPT/HCPCS: 94010; 94640; 94727; 94729

== ENCOUNTER → 2024-08-29 10:00 | Outpatient (BNV) | payer MEDICARE, MEDICAID, SELFPAY | PROVIDERS: PCP Physician Assistant Medical; Visit Provider Internal Medicine Pulmonary Disease | DX: R06.09 Other forms of dyspnea (principal) | CPT/HCPCS: 94060; 94727; 94729 ==

== ENCOUNTER → 2024-10-24 10:45 | Outpatient (REF) | payer MEDICARE, MEDICAID, SELFPAY ==
--- NOTE | 2024-10-24 10:49 | CA_ITS ---
Acquisition Time: 2024-10-24 10:50:41 Total Exercise Time: 00:05:21 Test Indications: CP,Dyspnea MURMUR Medications: ALBUTEROL ATORVASTATIN PANTOPRAZOLE Protocol: LAYNE Max HR: 136 BPM 87% of Pred: 155 BPM Max BP: 136/60 mmHG Max Work Load: 5.8 METS Exercise Stress Test with exercise 5 mins 21 secs of Layne Protocol, reduced speed at stage 2 to 2.0 mph, achieving 87% MPHR, with reports of moderate SOB, no chest discomfort, without any arrythmias, with normotensive response to exercise. Without EKG chnages meeting criteria for ischemia. In recovery, breathing returned to baseline. Nuclear images pending. Test reviewed [facility] Dr. Velez. Referred By: Frieda Pablo Electronically Signed By: Jonnathan Sol
--- OUTSIDE RECORDS SUMMARY | 2024-10-24 11:52 | XMS_ITS | Encounter Summary ---
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 Name Role Phone Mayo Pablo NP Primary Care Provider [phone] Reason for Visit * Reason Comments Sore Throat Sore throat since th is am Encounter Details Date Type Department Care Team (Late st Contact Info) Description 10/08/2024 6:56 PM EST - 10/08/2024 11:29 PM EST Emergency [facility] Emergency [address] [place] [address] Hao Bui MD [address] [place] [address] Enteritis (Primary Dx); Nausea; Diarrhea, unspecified type; Pharyngitis, unspecified etiology Discharge Disposition: Home or Self Care Social History Tobacco Use Types Packs/Day Years Used Date Smoking Tobacco: Every Day Cigarettes Smokeless Tobacco: Never Tobacco Cessation:Ready to Q uit: Not Asked; Counseling Given: Not Answered Comments Unknown Sex and Gender Information Value Date Recorded Sex Assigned at Female 10/08/2024 7:44 PM EST Legal Sex Female 5:45 PM EST Gender Identity Female 10/08/2024 7:44 PM EST Sexual Orientation Straight 10/08/2024 7: 44 PM EST documented as of this encounter Last Filed Vital Signs Vital Sign Reading Time Taken Comments Blood Pressure 132/67 10/08/2024 11:10 PM EST Pulse 90 10/08/2024 11:10 PM EST Temperature 37 ??C (98.6 ??F) 10/08/2024 11:10 PM EST Respiratory Rate 17 10/08/2024 11:10 PM EST Oxygen Saturation 99% 10/08/2024 11:10 PM EST Inhaled Oxygen Concentration - - Weight 77.1 kg (170 lb) 10/08/2024 5:47 PM EST Height 152.4 cm (5') 10/08/2024 5:47 PM EST Body Mass Index 33.2 10/08/2024 5:47 PM EST documented in this encounter Functional Status * Are you deaf or do you have serious difficulty hearing? Answer Date of Assessment Author No 10/08/2024 6:56 PM EST Chávez RN * Are you blind or do you have serious difficulty seeing, even when wearing glasses? Answer Date of Assessment Author No 10/08/2024 6:56 PM EST Chávez RN * Do you have serious difficulty walking or climbing stairs? Answer Date of Assessment Author No 10/08/2024 6:56 PM EST Chávez RN * Do you have serious difficulty dressing or bathing? Answer Date of Assessment Author No 10/08/2024 6:56 PM EST Chávez RN * Because of a physical, mental, or emotional condition, do you have serious difficulty doing errandsalone such as visiting the doctor? Answer Date of Assessment Author No 10/08/2024 6:56 PM EST Chávez RN documented as of this encounter Mental Status * Because of a physical, mental, or emotional condition, do you have serious difficulty concentrating, remembering, or making decisions? (5 years old or older) Answer Entry Date Author No 10/08/2024 6:56 PM EST Chávez RN documented in this encounter Discharge Instructions * Discharge Instructions* WALTER Rain - 10/08/2024 10:42 PM EST Well-appearing. CT unremarkable. Patient discharged to follow-up outpatient with primary care doctor. documented in this encounter Medications at Time of Discharge amoxicillin (AMOXIL) 500 mg capsule Take 1 capsule (500 mg total) by mouth every 12 (twelve) hours for 10 days. 20 each 10/08/2024 5 benzocaine-menthoL (Cepacol Sore Throat, ronni-men,) 15-2.[address] 1 lozenge into mouth between cheek and gum 3 (three) times a day for 14 days. 28 lozenge 10/08/2024 5 famotidine (PEPCID) 20 mg tablet Take 1 tablet (20 mg total) by mouth 2 (two) times a day for 15 days. 30 tablet 10/08/2024 5 loperamide (IMODIUM) 2 mg capsule Take 1 capsule (2 mg total) by mouth 4 (four) times a day if needed for diarrhea for up to 3 days. 12 capsule 10/08/2024 5 ondansetron ODT (ZOFRAN-ODT) 4 mg disintegrating tablet Let 1 tablet dissolve under the tongue three times daily as needed for nausea or vomiting. 10 tablet 10/08/2024 5 documented as of this encounter Ordered Prescriptions Prescription Sig Dispense Quantity Refills Last Filled Start Date End Date amoxicillin (AMOXIL) 500 mg capsule Take 1 capsule (500 mg total) by mouth every 12 (twelve) hours for 10 days. 20 each 10/08/2024 5 benzocaine-menthoL (Cepacol Sore Throat, ronni-men,) 15-2.[address] 1 lozenge into mouth between cheek and gum 3 (three) times a day for 14 days. 28 lozenge 10/08/2024 5 amoxicillin (AMOXIL) 500 mg capsule Take 1 capsule (500 mg total) by mouth every 12 (twelve) hours for 10 days. 20 each 10/08/2024 5 famotidine (PEPCID) 20 mg tablet Take 1 tablet (20 mg total) by mouth 2 (two) times a day for 15 days. 30 tablet 10/08/2024 5 loperamide (IMODIUM) 2 mg capsule Take 1 capsule (2 mg total) by mouth 4 (four) times a day if needed for diarrhea for up to 3 days. 12 capsule 10/08/2024 5 ondansetron ODT (ZOFRAN-ODT) 4 mg disintegrating tablet Let 1 tablet dissolve under the tongue three times daily as needed for nausea or vomiting. 10 tablet 10/08/2024 documented in this encounter Discharge Disposition Disposition Code Departure Means Destination Comment s Home or Self Care documented in this encounter Progress Notes * Kita Jolley RN - 10/08/2024 5:53 PM EST C/o severe sore throat that started this am and has been getting worse. Denies fevers, but says shehas a new cough developing. * WALTER Rain - 10/08/2024 5:45 PM EST Emergency Medicine Note Patient Name: Molly Trotter Initial Evaluation: 10/08/2024 : 1960 Patient's PCP: Mayo Pablo NP Emergency Physician: WALTER Nevarez History of Present Illness Chief Complaint: Chief Complaint Patient presents with Sore Throat Sore throat since this am HPI: 64-year-old female here today complaining of diarrhea nausea intermittent abdominal pain with a sore throat. Began this morning. Denies any vomiting fever chills. Patient does complain of bodyaches. Denies any dysuria urgency or frequency. ROS: I have performed a ROS with the pertinent positives and negatives documented in the history ofpresent illness. Previous History Past Medical History: Diagnosis Date Cancer (CMS/HCC) Hypertension History reviewed. No pertinent surgical history. Social History Tobacco Use Smoking status: Every Day Types: Cigarettes Smokeless tobacco: Never No family history on file. is allergic to azithromycin. No current facility-administered medications on file prior to encounter. No current outpatient medications on file prior to encounter. Physical Exam ED Triage Vitals [10/08/24 1747] Temp Heart Rate Resp BP 37.1 ??C (98.8 ??F) (!) 113 20 117/59 SpO2 Temp Source Heart Rate Source Patient Position -- Oral Right -- BP Location FiO2 (%) Right arm -- Physical Exam Vitals and nursing note reviewed. Constitutional: Appearance: She is well-developed. HENT: Head: Normocephalic. Mouth/Throat: Mouth: Mucous membranes are moist. Pharynx: Uvula midline. Posterior oropharyngeal erythema present. No pharyngeal swelling. Eyes: Conjunctiva/sclera: Conjunctivae normal. Pupils: Pupils are equal, round, and reactive to light. Cardiovascular: Rate and Rhythm: Normal rate and regular rhythm. Pulmonary: Effort: Pulmonary effort is normal. Breath sounds: Normal breath sounds. Abdominal: Comments: Hyperactive bowel sounds. Diffuse tender throughout. No peritoneal signs noted. Nondistended no focal tenderness Musculoskeletal: Cervical back: Normal range of motion. Skin: General: Skin is warm. Capillary Refill: Capillary refill takes less than 2 seconds. Neurological: General: No focal deficit present. Mental Status: She is alert and oriented to person, place, and time. Psychiatric: Mood and Affect: Mood normal. Behavior: Behavior normal. Results Labs Reviewed COMPREHENSIVE METABOLIC PANEL - Abnormal Result Value Sodium 137 Potassium 3.9 Chloride 108 CO2 23 Anion Gap 6 Glucose 107 (*) BUN 21 Creatinine 0.75 eGFR 88 BUN/Creatinine Ratio 28.0 Calcium 9.2 AST (SGOT) 19 ALT (SGPT) 20 Alkaline Phosphatase 98 Total Protein 6.9 Albumin 3.6 Total Bilirubin 0.4 CBC WITH AUTO DIFFERENTIAL - Abnormal WBC 12.4 (*) RBC 5.30 (*) Hemoglobin 13.7 Hematocrit 43.5 MCV 82.5 MCH 26.0 (*) MCHC 31.5 (*) RDW 17.2 (*) Platelets 529 (*) MPV 10.9 NRBC 0.0 NRBC Absolute 0.00 Neutrophils Relative 91.1 Lymphocytes Relative 3.9 Monocytes Relative 4.4 Eosinophils Relative 0.2 Basophils Relative 0.1 Immature Granulocytes Relative 0.3 Neutrophils Absolute 11.32 (*) Lymphocytes Absolute 0.48 (*) Monocytes Absolute 0.55 Eosinophils Absolute 0.03 Basophils Absolute 0.01 Immature Granulocytes Absolute 0.04 (*) URINALYSIS WITH REFLEX MICROSCOPIC AND CULTURE - Abnormal Specific [place] Urine 1.030 pH, Urine 5.5 Leukocytes, Urine Negative Nitrite, Urine Negative Protein, Urine 30 (*) Glucose, Urine Negative Ketones, Urine Negative Urobilinogen, Urine 0.2 Bilirubin, Urine Negative Blood, Urine Negative RBC, Urine 2.4 WBC, Urine 4.1 (*) Squamous Epithelial, Urine 72 (*) Bacteria, Urine Negative Hyaline Casts, Urine 0.8 RESPIRATORY VIRUS PANEL MOLECULAR STUDY - Normal Adenovirus Detection by PCR Not Detected Influenza A PCR Not Detected Influenza B PCR Not Detected Coronavirus 229E Not Detected Coronavirus HKU1 Not Detected Coronavirus OC43 Not Detected Coronavirus NL63 Not Detected Parainfluenza Virus 1 Not Detected Parainfluenza Virus 2 Not Detected Parainfluenza Virus 3 Not Detected Parainfluenza Virus 4 Not Detected RSV PCR Not Detected Human Metapneumovirus A and B Not Detected Rhinovirus/Enterovirus Not Detected Bordetella pertussis Not Detected Bordetella parapertussis Not Detected Mycoplasma pneumo by PCR Not Detected Chlamydia pneumoniae Not Detected SARS COV-2 Not Detected Narrative: Testing was performed using the [employer] Respiratory Pathogen PCR Assay. All results must be correlated with the clinical findings. Results should not be used as the sole basis for diagnosis. False Negative results may occur from the presence of sequence variants in the region targeted by the assay or the presence of inhibitors. Results may be affected by concurrent antiviral/antimicrobial therapy or levels of organisms that are below the limit of detection. RAPID STREP A SCREEN - Normal Strep A Ag Negative LIPASE - Normal Lipase 22 CULTURE THROAT CBC AND DIFFERENTIAL Narrative: The following orders were created for panel order CBC and differential. Procedure Abnormality Status --------- ------ CBC auto differential[[id number]] Abnormal Final result Please view results for these tests on the individual orders. URINALYSIS WITH REFLEX MICROSCOPIC AND CULTURE Narrative: The following orders were created for panel order Urinalysis with reflex microscopic and culture. Procedure Abnormality Status --------- ------ Urinalysis with reflex ...[[id number]] Abnormal Final result [place] urine culture tube[[id number]] Final result Please view results for these tests on the individual orders. Abnormal Labs Reviewed COMPREHENSIVE METABOLIC PANEL - Abnormal; Notable for the following components: Result Value Glucose 107 (*) All other components within normal limits CBC WITH AUTO DIFFERENTIAL - Abnormal; Notable for the following components: WBC 12.4 (*) RBC 5.30 (*) MCH 26.0 (*) MCHC 31.5 (*) RDW 17.2 (*) Platelets 529 (*) Neutrophils Absolute 11.32 (*) Lymphocytes Absolute 0.48 (*) Immature Granulocytes Absolute 0.04 (*) All other components within normal limits URINALYSIS WITH REFLEX MICROSCOPIC AND CULTURE - Abnormal; Notable for the following components: Protein, Urine 30 (*) WBC, Urine 4.1 (*) Squamous Epithelial, Urine 72 (*) All other components within normal limits CT Abdomen Pelvis w Contrast Final Result Impression: Fluid-filled borderline dilated small bowel with wall thickening Probable acute enteritis pattern This document has been electronically signed by: Jarred Campos MD on 10/08/2024 22:29:45 XR Chest 2 Views (Results Pending) I have discussed the incidental/abnormal imaging and/or lab abnormalities with the patient and haveinstructed them the need for further evaluation and workup with their primary care doctor. I have provided the patient with a paper copy of the abnormality. The laboratory results, imaging results and other diagnostic exam results were reviewed in the EMR. EKG Interpretation Critical Care Time None ? Differential Diagnosis Diverticulitis Colitis Viral syndrome Influenza UTI Pharyngitis Medical Decision Making Well-appearing nontoxic non-lethargic vital signs are stable.Patient given 1 L of normal saline along with 4 mg p.o. of Imodium and 4 mg of Zofran. Will start patient on antibiotics. She does have anerythematous throat. Will order her some lozenge or's. Medications sodium chloride 0.9 % bolus 1,000 mL (0 mL intravenous Stopped 10/08/242139) ondansetron (PF) (ZOFRAN) injection 4 mg (4 mg intravenous Given 10/08/242029) loperamide (IMODIUM) capsule 4 mg (4 mg oral Given 10/08/242029) sodium chloride 0.9 % flush 10 mL (10 mL intravenous Given 10/08/242200) iopamidoL (ISOVUE-370) 370 mg iodine /mL (76 %) injection 90 mL (90 mL intravenous Given 10/08/242201) Clinical Impressions as of 10/08/248 Enteritis Nausea Diarrhea, unspecified type Pharyngitis, unspecified etiology Amount and/or Complexity of Data Reviewed External Data Reviewed: Encounters reviewed in Chart Review. Details: Labs: ordered. Decision-making details documented in ED Course. Radiology: ordered. Decision-making details documented in ED Course. ECG/medicine tests: ordered. Decision-making details documented in ED Course. Procedures Procedures Diagnosis 1. Enteritis 2. Nausea 3. Diarrhea, unspecified type 4. Pharyngitis, unspecified etiology Disposition Discharge ED Prescriptions Medication Sig Dispense Start Date End Date Auth. Provider ondansetron ODT (ZOFRAN-ODT) 4 mg disintegrating tablet Let 1 tablet dissolve under the tongue three times daily as needed for nausea or vomiting. 10 tablet 10/08/2024 10/15/2024 WALTER Rain loperamide (IMODIUM) 2 mg capsule Take 1 capsule (2 mg total) by mouth 4 (four) times a day if needed for diarrhea for up to 3 days. 12 capsule 10/08/2024 10/11/2024 WALTER Rain famotidine (PEPCID) 20 mg tablet Take 1 tablet (20 mg total) by mouth 2 (two) times a day for 15 days. 30 tablet 10/08/2024 10/23/2024 WALTER Rain amoxicillin (AMOXIL) 500 mg capsule (Status: Discontinued) Take 1 capsule (500 mg total) by mouth every 12 (twelve) hours for 10 days. 20 each 10/08/2024 10/08/2024 WALTER Rain benzocaine-menthoL (Cepacol Sore Throat, ronni-men,) 15-2.[address] 1 lozenge into mouth between cheek and gum 3 (three) times a day for 14 days. 28 lozenge 10/08/2024 10/22/2024 WALTER Rain amoxicillin (AMOXIL) 500 mg capsule Take 1 capsule (500 mg total) by mouth every 12 (twelve) hours for 10 days. 20 each 10/08/2024 10/18/2024 WALTER Nevarez Physician Attestation WALTER Rain 10/08/241941 WALTER Rain 10/08/242305 WALTER Rain 10/08/24 2308 Cosigned by Hao Bui MD at 10/08/2024 11:20 PM EST Associated attestation - Hao Bui MD - 10/08/2024 11:20 PM EST This is a split/shared visit with WALTER Rain. I personally performed the medical decision making (MDM) for the care of this patient on 10/08/2024 as documented below 64-year-old female presents for diarrhea nausea and abdominal pain with sore throat. Diffusely tender abdomen, no peritonitis. CT of the abdomen suggests enteritis. Long viral panel is negative. Remainder of labs are reassuring. Likely viral gastroenteritis, discharged with anticipatory guidance and return precautions for dehydration. Hao Bui MD 10/08/24 11:20 PM EST documented in this encounter Plan of Treatment Not on file documented as of this encounter Procedures Procedure Name Priority Date/Time Associated Diagnosis Comments CT ABDOMEN PELVIS W CONTRAST STAT 10/08/2024 10:05 PM EST URINALYSIS WITH REFLEX MICROSCOPIC AND CULTURE STAT 10/08/2024 9:41 PM EST [place] URINE CULTURE TUBE STAT 10/08/2024 9:41 PM EST URINALYSIS WITH REFLEX MICROSCOPIC AND CULTURE STAT 10/08/2024 9:41 PM EST CBC WITH AUTO DIFFERENTIAL STAT 10/08/2024 8:30 PM EST CBC AND DIFFERENTIAL STAT 10/08/2024 8:30 PM EST LIPASE STAT 10/08/2024 8:30 PM EST COMPREHENSIVE METABOLIC PANEL STAT 10/08/2024 8:30 PM EST XR CHEST 2 VIEWS STAT 10/08/2024 6:06 PM EST RESPIRATORY VIRUS PANEL MOLECULAR STUDY STAT 10/08/2024 5:58 PM EST RAPID STREP A SCREEN STAT 10/08/2024 5:58 PM EST CULTURE THROAT STAT 10/08/2024 5:58 PM EST documented in this encounter Results * CT Abdomen Pelvis w Contrast (10/08/2024 10:05 PM EST) Anatomical Region Laterality Modality Body Computed Tomogra phy 10/08/2024 10:2 9 PM EST Impressions 10/08/2024 10:29 PM EST Impression: Fluid-filled borderline dilated small bowel with wall thickening Probable acute enteritis pattern This document has been electronically signed by: Jarred Campos MD on 10/08/2024 22:29:45 Narrative 10/08/2024 10:[address] abdomen and pelvis with contrast Comparison: None Findings: Fluid-filled small bowel throughout the abdomen. Small bowel wall thickening noted in the left abdomen. Borderline small-bowel dilation noted. Question acute enteritis pattern. Lung bases are clear. No acute bony abnormalities. Moderate hiatal hernia partially visualized. Distal esophagus dilated and fluid-filled. Hepatomegaly without significant focal abnormality. Pancreas, Spleen and adrenal glands unremarkable. Gallbladder is within normal limits. No significant focal renal abnormalities. Punctate nonobstructing left renal stone. No bilateral ureteral stone or hydronephrosis. Abdominal aorta is normal in caliber. No free fluid or adenopathy in the pelvis. No diverticulitis. Appendix unremarkable. Uterus is atrophic. No adnexal abnormality. Procedure Note Jarred Campos MD - 10/08/2024 CT abdomen and pelvis with contrast Comparison: None Findings: Fluid-filled small bowel throughout the abdomen. Small bowel wall thickening noted in the left abdomen. Borderline small-bowel dilation noted. Question acute enteritis pattern. Lung bases are clear. No acute bony abnormalities. Moderate hiatal hernia partially visualized. Distal esophagus dilated and fluid-filled. Hepatomegaly without significant focal abnormality. Pancreas, Spleen and adrenal glands unremarkable. Gallbladder is within normal limits. No significant focal renal abnormalities. Punctate nonobstructing left renal stone. No bilateral ureteral stone or hydronephrosis. Abdominal aorta is normal in caliber. No free fluid or adenopathy in the pelvis. No diverticulitis. Appendix unremarkable. Uterus is atrophic. No adnexal abnormality. IMPRESSION: Impression: Fluid-filled borderline dilated small bowel with wall thickening Probable acute enteritis pattern This document has been electronically signed by: Jarred Campos MD on 10/08/2024 22:29:45 us Vera [facility]ATSON IMG CT PROCEDURES Valerie l Result * [place] urine culture tube (10/08/2024 9:41 PM EST) Pathologist [facility] Extra Tube Hold for add-ons. 10/08/2024 11:01 PM EST [facility] Comment:Auto resulted. Urine Urine specimen obtained by clean catch procedure / Unknown Non-blood Collection / Unknown 10/08/2024 9:41 PM EST 10/08/2024 9:55 PM EST us Vera WATSON LAB URINE ORDERABLES F inal Result [facility] [address] [place] [address], [place] [phone] * (ABNORMAL) Urinalysis with reflex microscopic and culture (10/08/2024 9:41 PM EST) Pathologist [facility] Specific [place] Urine 1.030 1.003 - 1.030 LAB URINALYSIS - AUTOMATED METHOD 10/08/2024 10:13 PM [facility] pH, Urine 5.5 5.0 - 8.0 pH LAB URINALYSIS - AUTOMATED METHOD 10/08/2024 10:13 PM [facility] Leukocytes, Urine Negative Negative LAB URINALYSIS - AUTOMATED METHOD 10/08/2024 10:13 PM [facility] Nitrite, Urine Negative Negative LAB URINALYSIS - AUTOMATED METHOD 10/08/2024 10:13 PM [facility] Protein, Urine 30(A) <=Trace mg/dL LAB URINALYSIS - AUTOMATED METHOD 10/08/2024 10:13 PM [facility] Glucose, Urine Negative Negative mg/dL LAB URINALYSIS - AUTOMATED METHOD 10/08/2024 10:13 PM [facility] Ketones, Urine Negative Negative mg/dL LAB URINALYSIS - AUTOMATED METHOD 10/08/2024 10:13 PM [facility] Urobilinogen, Urine 0.2 0.2 - 1.0 mg/dL LAB URINALYSIS - AUTOMATED METHOD 10/08/2024 10:13 PM [facility] Bilirubin, Urine Negative Negative LAB URINALYSIS - AUTOMATED METHOD 10/08/2024 10:13 PM [facility] Blood, Urine Negative Negative LAB URINALYSIS - AUTOMATED METHOD 10/08/2024 10:13 PM [facility] RBC, Urine 2.4 0 - 4 /HPF LAB URINALYSIS - AUTOMATED METHOD 10/08/2024 10:13 PM [facility] WBC, Urine 4.1(H) 0 - 4 /HPF LAB URINALYSIS - AUTOMATED METHOD 10/08/2024 10:13 PM [facility] Squamous Epithelial, Urine 72(H) 0 - 60 /LPF LAB URINALYSIS - AUTOMATED METHOD 10/08/2024 10:13 PM [facility] Bacteria, Urine Negative Negative /HPF LAB URINALYSIS - AUTOMATED METHOD 10/08/2024 10:13 PM [facility] Hyaline Casts, Urine 0.8 0 - 3 /LPF LAB URINALYSIS - AUTOMATED METHOD 10/08/2024 10:13 PM [facility] Urine Urine specimen obtained by clean catch procedure / Unknown Non-blood Collection / Unknown 10/08/2024 9:41 PM EST 10/08/2024 9:55 PM EST Vera [facility]ATSON LAB URINE ORDERABLES F inal Result [facility] [address] [place] [address], * (ABNORMAL) CBC auto differential (10/08/2024 8:30 PM EST) WBC 12.4(H) 4.8 - 10.8 K/mcL LAB HEMETOLOGY METHOD 10/08/2024 8:55 PM [facility] RBC 5.30(H) 3.80 - 4.80 M/mcL LAB HEMETOLOGY METHOD 10/08/2024 8:55 PM [facility] Hemoglobin 13.7 11.5 - 16.0 g/dL LAB HEMETOLOGY METHOD 10/08/2024 8:55 PM [facility] Hematocrit 43.5 35.0 - 47.0 % LAB HEMETOLOGY METHOD 10/08/2024 8:55 PM [facility] MCV 82.5 79.0 - 98.0 FL LAB HEMETOLOGY METHOD 10/08/2024 8:55 PM [facility] MCH 26.0(L) 27.0 - 32.0 pcg LAB HEMETOLOGY METHOD 10/08/2024 8:55 PM [facility] MCHC 31.5(L) 32.0 - 37.0 g/dL LAB HEMETOLOGY METHOD 10/08/2024 8:55 PM [facility] RDW 17.2(H) 11.0 - 15.0 % LAB HEMETOLOGY METHOD 10/08/2024 8:55 PM [facility] Platelets 529(H) 130 - 400 K/mcL LAB HEMETOLOGY METHOD 10/08/2024 8:55 PM [facility] MPV 10.9 7.0 - 11.0 FL LAB HEMETOLOGY METHOD 10/08/2024 8:55 PM [facility] NRBC 0.0 <1.0 % LAB HEMETOLOGY METHOD 10/08/2024 8:55 PM [facility] NRBC Absolute 0.00 <0.10 K/mcL LAB HEMETOLOGY METHOD 10/08/2024 8:55 PM [facility] Neutrophils Relative 91.1 % LAB HEMETOLOGY METHOD 10/08/2024 8:55 PM [facility] Lymphocytes Relative 3.9 % LAB HEMETOLOGY METHOD 10/08/2024 8:55 PM [facility] Monocytes Relative 4.4 % LAB HEMETOLOGY METHOD 10/08/2024 8:55 PM [facility] Eosinophils Relative 0.2 % LAB HEMETOLOGY METHOD 10/08/2024 8:55 PM [facility] Basophils Relative 0.1 % LAB HEMETOLOGY METHOD 10/08/2024 8:55 PM [facility] Immature Granulocytes Relative 0.3 % LAB HEMETOLOGY METHOD 10/08/2024 8:55 PM [facility] Neutrophils Absolute 11.32(H) 1.50 - 7.00 K/mcL LAB HEMETOLOGY METHOD 10/08/2024 8:55 PM [facility] Lymphocytes Absolute 0.48(L) 1.00 - 5.00 K/mcL LAB HEMETOLOGY METHOD 10/08/2024 8:55 PM [facility] Monocytes Absolute 0.55 0.20 - 1.00 K/mcL LAB HEMETOLOGY METHOD 10/08/2024 8:55 PM [facility] Eosinophils Absolute 0.03 0.00 - 0.50 K/mcL LAB HEMETOLOGY METHOD 10/08/2024 8:55 PM EST [facility] Basophils Absolute 0.01 0.00 - 0.20 K/[facility] LAB HEMETOLOGY METHOD 10/08/2024 8:55 PM EST [facility] Immature Granulocytes Absolute 0.04(H) 0.00 - 0.03 K/[facility] LAB HEMETOLOGY METHOD 10/08/2024 8:55 PM EST [facility] Blood Venous blood specimen / Unknown Venipuncture / Unknown 10/08/2024 8:30 PM EST 10/08/2024 8:49 PM EST [facility] LAB BLOOD ORDERABLES F inal Result Performing Organization Address [facility]/ZIP Co de Phone Number [facility] [address] [place] [address], [place] [phone] * Lipase (10/08/2024 8:30 PM EST) Pathologist [facility] Lipase 22 13 - 75 unit/L LAB CHEMISTRY METHOD 10/08/2024 9:20 PM EST [facility] Blood Venous blood specimen / Unknown Venipuncture / Unknown 10/08/2024 8:30 PM EST 10/08/2024 8:49 PM EST [facility] LAB BLOOD ORDERABLES F inal Result [facility] [address] [place] [address], * (ABNORMAL) Comprehensive Metabolic Panel (CMP) (10/08/2024 8:30 PM EST) Sodium 137 133 - 145 mmol/L LAB CHEMISTRY METHOD 10/08/2024 9:20 PM EST [facility] Potassium 3.9 3.5 - 5.5 mmol/L LAB CHEMISTRY METHOD 10/08/2024 9:20 PM [facility] Chloride 108 96 - 110 mmol/L LAB CHEMISTRY METHOD 10/08/2024 9:20 PM [facility] CO2 23 21 - 32 mmol/L LAB CHEMISTRY METHOD 10/08/2024 9:20 PM [facility] Anion Gap 6 3 - 11 LAB CHEMISTRY METHOD 10/08/2024 9:20 PM [facility] Glucose 107(H) 70 - 100 mg/dL LAB CHEMISTRY METHOD 10/08/2024 9:20 PM [facility] BUN 21 5 - 25 mg/dL LAB CHEMISTRY METHOD 10/08/2024 9:20 PM [facility] Creatinine 0.75 0.50 - 1.10 mg/dL LAB CHEMISTRY METHOD 10/08/2024 9:20 PM [facility] eGFR 88 >=60 mL/min/1. 73m2 LAB CHEMISTRY METHOD 10/08/2024 9:20 PM [facility] Comment:Calculation based on the??Chronic Kidney Disease Epidemiology Collaboration (CKD-EPI) equation refit??without adjustment for race. BUN/Creatinine Ratio 28.0 LAB CHEMISTRY METHOD 10/08/2024 9:20 PM [facility] Calcium 9.2 8.5 - 10.5 mg/dL LAB CHEMISTRY METHOD 10/08/2024 9:20 PM [facility] AST (SGOT) 19 10 - 42 unit/L LAB CHEMISTRY METHOD 10/08/2024 9:20 PM [facility] ALT (SGPT) 20 10 - 60 unit/L LAB CHEMISTRY METHOD 10/08/2024 9:20 PM [facility] Alkaline Phosphatase 98 42 - 121 unit/L LAB CHEMISTRY METHOD 10/08/2024 9:20 PM [facility] Total Protein 6.9 6.0 - 8.0 g/dL LAB CHEMISTRY METHOD 10/08/2024 9:20 PM EST [facility] Albumin 3.6 3.2 - 5.0 g/dL LAB CHEMISTRY METHOD 10/08/2024 9:20 PM EST [facility] Total Bilirubin 0.4 0.0 - 1.4 mg/dL LAB CHEMISTRY METHOD 10/08/2024 9:20 PM EST [facility] Blood Venous blood specimen / Unknown Venipuncture / Unknown 10/08/2024 8:30 PM EST 10/08/2024 8:49 PM EST [facility] LAB BLOOD ORDERABLES F inal Result [facility] [address] [place] [address], [place] [phone] * XR Chest 2 Views (10/08/2024 6:06 PM EST) Anatomical Region Laterality Modality Body Radiographic Nati ging 10/09/2024 8:31 AM EST Impressions 10/09/2024 8:31 AM EST FINDINGS/IMPRESSION: Lungs are clear. ??No pleural effusion or pneumothorax. ??Cardiac silhouette is normal in size. ??Degenerative changes seen throughout the bones. -------- FINAL REPORT -------- Dictated By: VICTORIANO BARNHART Dictated Date: 10/09/2024 08:31 ET Assigned Physician: VICTORIANO BARNHART Reviewed and Electronically Signed By: VICTORIANO BARNHART Signed Date: 10/09/2024 08:31 ET Workstation ID: [id number] Transcribed By: Self Edit Transcribed Date: 10/09/2024 08:31 ET Narrative 10/09/2024 8:31 AM EST XR CHEST 2 VIEWS INDICATION: ??Pain TECHNIQUE: XR CHEST 2 VIEWS COMPARISON: No priors available. Procedure Note Victoriano Barnhart MD - 10/09/2024 XR CHEST 2 VIEWS INDICATION: Pain TECHNIQUE: XR CHEST 2 VIEWS COMPARISON: No priors available. IMPRESSION: FINDINGS/IMPRESSION: Lungs are clear. No pleural effusion orpneumothorax. Cardiac silhouette is normal in size. Degenerative changesseen throughout the bones. -------- FINAL REPORT -------- Dictated By: VICTORIANO BARNHART Dictated Date: 10/09/2024 08:31 ET Assigned Physician: VICTORIANO BARNHART Reviewed and Electronically Signed By: VICTORIANO BARNHART Signed Date: 10/09/2024 08:31 ET Workstation ID: [id number] Transcribed By: Self Edit Transcribed Date: 10/09/2024 08:31 ET Hao Bui MD IMG XR PROCEDURES Final Result * Culture throat (10/08/2024 5:58 PM EST) [facility] Culture, Throat No pathogens isolated. 10/10/2024 11:52 AM EST [facility] Swab Structure of anterior portion of neck / Unknown Non-blood Collection / Unknown 10/08/2024 5:58 PM EST 10/08/2024 6:05 PM EST Hao Bui MD LAB MICROBIOLOGY - GENERAL ASYA DESAI Final Result Performing Organization Address [facility] Co de Phone Number [facility] [address] [place] [address], [place] [phone] * Rapid strep A screen (10/08/2024 5:58 PM EST) [facility] Strep A Ag Negative Negative, Invalid 10/08/2024 6:18 PM EST [facility] Comment:Refer to Throat Cult ure. Swab Structure of anterior portion of neck / Unknown Non-blood Collection / Unknown 10/08/2024 5:58 PM EST 10/08/2024 6:05 PM EST us Hao Bui MD LAB MICROBIOLOGY - GENERAL ASYA DESAI Final Result Performing Organization Address City/[facility]/ZIP Co de Phone Number [facility] [address] [place] [address], * Respiratory virus panel molecular study (10/08/2024 5:58 PM EST) Adenovirus Detection by PCR Not Detected Not Detected LAB MICROBIOLOGY METHOD 10/08/2024 7:09 PM EST [facility] Influenza A PCR Not Detected Not Detected LAB MICROBIOLOGY METHOD 10/08/2024 7:09 PM EST [facility] Influenza B PCR Not Detected Not Detected LAB MICROBIOLOGY METHOD 10/08/2024 7:09 PM EST [facility] Coronavirus 229E Not Detected Not Detected LAB MICROBIOLOGY METHOD 10/08/2024 7:09 PM EST [facility] Coronavirus HKU1 Not Detected Not Detected LAB MICROBIOLOGY METHOD 10/08/2024 7:09 PM EST [facility] Coronavirus OC43 Not Detected Not Detected LAB MICROBIOLOGY METHOD 10/08/2024 7:09 PM EST [facility] Coronavirus NL63 Not Detected Not Detected LAB MICROBIOLOGY METHOD 10/08/2024 7:09 PM EST [facility] Parainfluenza Virus 1 Not Detected Not Detected LAB MICROBIOLOGY METHOD 10/08/2024 7:09 PM [facility] Parainfluenza Virus 2 Not Detected Not Detected LAB MICROBIOLOGY METHOD 10/08/2024 7:09 PM EST [facility] Parainfluenza Virus 3 Not Detected Not Detected LAB MICROBIOLOGY METHOD 10/08/2024 7:09 PM EST [facility] Parainfluenza Virus 4 Not Detected Not Detected LAB MICROBIOLOGY METHOD 10/08/2024 7:09 PM EST [facility] RSV PCR Not Detected Not Detected LAB MICROBIOLOGY METHOD 10/08/2024 7:09 PM EST [facility] Human Metapneumovirus A and B Not Detected Not Detected LAB MICROBIOLOGY METHOD 10/08/2024 7:09 PM EST [facility] Rhinovirus/Entero virus Not Detected Not Detected LAB MICROBIOLOGY METHOD 10/08/2024 7:09 PM [facility] Bordetella pertussis Not Detected Not Detected LAB MICROBIOLOGY METHOD 10/08/2024 7:09 PM [facility] Bordetella parapertussis Not Detected Not Detected LAB MICROBIOLOGY METHOD 10/08/2024 7:09 PM [facility] Mycoplasma pneumo by PCR Not Detected Not Detected LAB MICROBIOLOGY METHOD 10/08/2024 7:09 PM [facility] Chlamydia pneumoniae Not Detected Not Detected LAB MICROBIOLOGY METHOD 10/08/2024 7:09 PM [facility] SARS COV-2 Not Detected Not Detected LAB MICROBIOLOGY METHOD 10/08/2024 7:09 PM [facility] Swab Both anterior nares / Unknown Non-blood Collection / Unknown 10/08/2024 5:58 PM EST 10/08/2024 6:05 PM EST [facility] - 10/08/2024 7:09 PM EST Testing was performed using the [employer] Respiratory Pathogen PCR Assay. All results must be correlated with the clinical findings. Results should not be used as the sole basis for diagnosis. False Negative results may occur from the presence of sequence variants in the region targeted by the assay or the presence of inhibitors. Results may be affected by concurrent antiviral/antimicrobial therapy or levels of organisms that are below the limit of detection. us Hao Bui MD LAB MICROBIOLOGY - GENERAL ASYA DESAI Final Result [facility] [address] [place] [address], documented in this encounter Visit Diagnoses Diagnosis Enteritis- Primary Other and unspecified noninfectious gastroenteritis and colitis Nausea Nausea alone Diarrhea, unspecified type Pharyngitis, unspecified etiology documented in this encounter Administered Medications Inactive Administered Medications - up to 3 most recent administrations Medication Order MAR Action Action Date Dose Rate Site iopamidoL (ISOVUE-370) 370 mg iodine /mL (76 %) injection 90 mL 90 mL, intravenous, Once in imaging, Starting on 10/08/24 at 2200, For 1 dose Given 10/08/2024 10:02 PM EST 90 mL loperamide (IMODIUM) capsule 4 mg 4 mg, oral, Once, On 10/08/24 at 1944, For 1 dose Given 10/08/2024 8:30 PM EST 4 mg ondansetron (PF) (ZOFRAN) injection 4 mg 4 mg, intravenous, Once, On 10/08/24 at 1944, For 1 dose Given 10/08/2024 8:30 PM EST 4 mg phenoL (CHLORASEPTIC) 1.4 % mouth spray aerosol,spray 1 spray 1 spray, mucous membrane, Every 2 hours PRN, sore throat, Starting on 10/08/24 at 2319 sodium chloride 0.9 % bolus 1,000 mL 1,000 mL, intravenous, at 1,000 mL/hr, Administer over 1 Hours, Once, On 10/08/24 at 1944, For 1 dose New Bag 10/08/2024 8:28 PM EST 1,000 mL 1000 mL/hr sodium chloride 0.9 % flush 10 mL 10 mL, intravenous, Once, On 10/08/24 at 2201, For 1 dose Given 10/08/2024 10:01 PM EST 10 mL documented in this encounter Discontinued Medications Medication Sig Discontinue Reason Start Date End Da te amoxicillin (AMOXIL) 500 mg capsule Take 1 capsule (500 mg total) by mouth every 12 (twelve) hours for 10 days. 10/08/2024 10/08/2024 documented as of this encounter Active and Recently Administered Medications Times are shown in EST. Scheduled Medication Order 10/06/2024 10/07/2024 10/08/2024 iopamidoL (ISOVUE-370) 370 mg iodine /mL (76 %) injection 90 mL (COMPLETED) 90 mL, intravenous, Once in imaging, Starting on 10/08/24 at 2200, For 1 dose 2201 (Given - Provid er: Missy Reynolds) loperamide (IMODIUM) capsule 4 mg (COMPLETED) 4 mg, oral, Once, On 10/08/24 at 1944, For 1 dose 2029 (Given - Provid er: Beverly Bowser RN) ondansetron (PF) (ZOFRAN) injection 4 mg (COMPLETED) 4 mg, intravenous, Once, On 10/08/24 at 194, For 1 dose 2029 (Given - Provid er: Beverly Bowser RN) sodium chloride 0.9 % bolus 1,000 mL (COMPLETED) 1,000 mL, intravenous, at 1,000 mL/hr, Administer over 1 Hours, Once, On 10/08/24 at 194, For 1 dose 2027 (New Bag - Prov ider: Beverly Bowser RN)2139 (Stopped - Provider: Beverly Bowser RN) sodium chloride 0.9 % flush 10 mL (COMPLETED) 10 mL, intravenous, Once, On 10/08/24 at 2200, For 1 dose 2200 (Given - Provid er: Missy Reynolds) PRN Medication Order 10/06/2024 10/07/2024 10/08/2024 phenoL (CHLORASEPTIC) 1.4 % mouth spray aerosol,spray 1 spray 1 spray, mucous membrane, Every 2 hours PRN, sore throat, Starting on 10/08/24 at 2319 documented in this encounter Orders Medications Ordered That Rafita ht Not Have Been Administered Count Last Ordered Date First Ordered Date benzocaine (HURRICAINE) 20 % mucosal spray 1 spray 1 10/08/2024 phenoL (CHLORASEPTIC) 1.4 % mouth spray aerosol,spray 1 spray 1 10/08/2024 documented in this encounter Additional Health Concerns Infection Onset Date Last Indicated Resolved Time Respiratory Rule-Out 10/08/2024 10/08/2024 025 7:09 PM EST COVID-19 Rule-Out 10/08/2024 10/08/2024 10/08/2024 7:09 PM EST documented as of this encounter 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
--- OUTSIDE RECORDS SUMMARY | 2024-10-24 11:52 | XMS_ITS | Clinical Summary ---
Author Organization [facility] Address [address] [place] [id number] Phone Care Team Providers Care Transportation Program Director Name Role Phone Mayo Pablo NP Primary Care Provider [phone] Allergies Active Allergy Reactions Criticality Noted Date Comments Azithromycin GI intolerance 10/08/2024 Medications ondansetron ODT (ZOFRAN-ODT) 4 mg disintegrating tablet Let 1 tablet dissolve under the tongue three times daily as needed for nausea or vomiting. 10 tablet 10/08/19 25 025 loperamide (IMODIUM) 2 mg capsule Take 1 capsule (2 mg total) by mouth 4 (four) times a day if needed for diarrhea for up to 3 days. 12 capsule 10/08/19 25 025 famotidine (PEPCID) 20 mg tablet Take 1 tablet (20 mg total) by mouth 2 (two) times a day for 15 days. 30 tablet 10/08/19 25 025 amoxicillin (AMOXIL) 500 mg capsule Take 1 capsule (500 mg total) by mouth every 12 (twelve) hours for 10 days. 20 each 10/08/19 25 025 Discontinued benzocaine-menthoL (Cepacol Sore Throat, ronni-men,) 15-2.[address] 1 lozenge into mouth between cheek and gum 3 (three) times a day for 14 days. 28 lozenge 10/08/19 25 025 amoxicillin (AMOXIL) 500 mg capsule Take 1 capsule (500 mg total) by mouth every 12 (twelve) hours for 10 days. 20 each 10/08/19 25 025 Encounters Date Type Department Care Team Description 10/08/2024 6:56 PM EST - 10/08/2024 11:29 PM EST Emergency [facility] Emergency [address] [place] [address] Hao Bui MD Enteritis (Primary Dx); Nausea; Diarrhea, unspecified type; Pharyngitis, unspecified etiology Discharge Disposition: Home or Self Care from Last 3 Months Medical History Medical History Date Comments Cancer (CMS/HCC) Hypertension Social History Tobacco Use Types Packs/Day Years [...] Orientation Straight 10/08/2024 7: 44 PM EST Obstetrics History Last Filed Vital Signs Vital Sign Reading [...] Mass Index 33.2 10/08/2024 5:47 PM EST Plan of Treatment Health Maintenance Due Date Last Done Comments DTaP,Tdap,and Td Vaccines (1 - Tdap) 1978 Hepatitis A Vaccines (1 of 2 - Risk 2-dose series) 1978 Pneumococcal Vaccine: 50+ Years (1 of 2 - PCV) 1978 Pneumococcal Vaccine: Pediatrics (0 to 5 Years) and At-Risk Patients (6 to 64 Years) (1 of 2 - PCV) 1978 Cervical Cancer Screening: P ap Smear 1980 Zoster Vaccines (1 of 2) 2009 Breast Cancer Screening 05/19/2018 05/19/2016 Hepatitis B Vaccines (1 of 3 - Risk 3-dose series) 2019 RSV Immunization Patients 60 + Years Old (1 - Risk 60-74 years 1-dose series) 2019 COVID-19 Vaccine (1 - 2023-2 5 season) 2024 Influenza Vaccine (#1) 2024 Depression Screening 10/08/2024 01/29/2023 Falls Risk Assessment 10/08/2024 Hepatitis C Screening 10/08/2024 Medicare Annual Wellness Visit 10/08/2024 Osteoporosis Screening (Bone Density Screening) 10/08/2024 Social Influencers of Health Screening 10/08/2024 Colorectal Cancer Screening: FIT-DNA (Cologuard) 02/17/2026 02/17/2023, 02/17/2023 Cholesterol Screening (Lipid Panel) 11/17/2026 11/17/2021, 11/17/2021 HIB Vaccines Aged Out No longer eligi ble based on patient's age to complete this topic HPV Vaccines Aged Out No longer eligi ble based on patient's age to complete this topic IPV Vaccines Aged Out No longer eligi ble based on patient's age to complete this topic MMR Vaccines Aged Out No longer eligi ble based on patient's age to complete this topic Meningococcal ACWY Vaccine Aged Out N o longer eligible based on patient's age to complete this topic Meningococcal B Vacine Aged Out No lo nger eligible based on patient's age to complete this topic RSV Immunization Patients Under 20 months Aged Out No longer eligible b ased on patient's age to complete this topic Varicella Vaccines Aged Out No longer eligible based on patient's age to complete this topic Procedures Procedure Name Priority Date/Time Associated Diagnosis Comments CT ABDOMEN PELVIS W CONTRAST STAT 10/08/2024 10:05 PM EST [place] URINE CULTURE TUBE STAT 10/08/2024 9:41 PM EST URINALYSIS WITH REFLEX MICROSCOPIC AND CULTURE STAT 10/08/2024 9:41 PM EST URINALYSIS WITH REFLEX MICROSCOPIC AND CULTURE STAT 10/08/2024 9:41 PM EST CBC WITH AUTO DIFFERENTIAL STAT 10/08/2024 8:30 PM EST CBC AND DIFFERENTIAL STAT 10/08/2024 8:30 PM EST LIPASE STAT 10/08/2024 8:30 PM EST COMPREHENSIVE METABOLIC PANEL STAT 10/08/2024 8:30 PM EST XR CHEST 2 VIEWS STAT 10/08/2024 6:06 PM EST CULTURE THROAT STAT 10/08/2024 5:58 PM EST RAPID STREP A SCREEN STAT 10/08/2024 5:58 PM EST RESPIRATORY VIRUS PANEL MOLECULAR STUDY STAT 10/08/2024 5:58 PM EST from Last 3 Months Results * CT Abdomen Pelvis w Contrast [...] by: Jarred Campos MD on 10/08/2024 22:29:[address] PROCEDURES Valerie l Result * (ABNORMAL) Urinalysis with reflex microscopic and culture (10/08/2024 9:41 PM EST) Specific [place] Urine 1.030 1.003 - 1.030 LAB URINALYSIS - AUTOMATED METHOD 10/08/2024 10:13 PM [facility] pH, Urine 5.5 5.0 - 8.0 pH LAB URINALYSIS - AUTOMATED METHOD 10/08/2024 10:13 PM [facility] Leukocytes, Urine Negative Negative LAB URINALYSIS - AUTOMATED METHOD 10/08/2024 10:13 PM [facility] Nitrite, Urine Negative Negative LAB URINALYSIS - AUTOMATED METHOD 10/08/2024 10:13 PM [facility] Protein, Urine 30(A) <=Trace mg/dL LAB URINALYSIS - AUTOMATED METHOD 10/08/2024 10:13 PM [facility] Glucose, Urine Negative Negative mg/dL LAB URINALYSIS - AUTOMATED METHOD 10/08/2024 10:13 PM [facility] Ketones, Urine Negative Negative mg/dL LAB URINALYSIS - AUTOMATED METHOD 10/08/2024 10:13 PM [facility] Urobilinogen, Urine 0.2 0.2 - 1.0 mg/dL LAB URINALYSIS - AUTOMATED METHOD 10/08/2024 10:13 PM [facility] Bilirubin, Urine Negative Negative LAB URINALYSIS - AUTOMATED METHOD 10/08/2024 10:13 PM [facility] Blood, Urine Negative Negative LAB URINALYSIS - AUTOMATED METHOD 10/08/2024 10:13 PM [facility] RBC, Urine 2.4 0 - 4 /HPF LAB URINALYSIS - AUTOMATED METHOD 10/08/2024 10:13 PM [facility] WBC, Urine 4.1(H) 0 - 4 /HPF LAB URINALYSIS - AUTOMATED METHOD 10/08/2024 10:13 PM [facility] Squamous Epithelial, Urine 72(H) 0 - 60 /LPF LAB URINALYSIS - AUTOMATED METHOD 10/08/2024 10:13 PM [facility] Bacteria, Urine Negative Negative /HPF LAB URINALYSIS - AUTOMATED METHOD 10/08/2024 10:13 PM [facility] Hyaline Casts, Urine 0.8 0 - 3 /LPF LAB URINALYSIS - AUTOMATED METHOD 10/08/2024 10:13 PM [facility] Urine Urine specimen obtained by clean catch procedure / Unknown Non-blood Collection / Unknown 10/08/2024 9:41 PM EST 10/08/2024 9:55 PM EST Vera [facility]ATSON LAB URINE ORDERABLES F inal Result Performing Organization Address City/State/[facility] Co de Phone Number [facility] [address] [place] [address], [place] [phone] * [place] urine culture tube (10/08/2024 9:41 PM EST) Extra Tube Hold for add-ons. 10/08/2024 11:01 PM EST [facility] Comment:Auto resulted. Urine Urine specimen obtained by clean catch procedure / Unknown Non-blood Collection / Unknown 10/08/2024 9:41 PM EST 10/08/2024 9:55 PM EST Vera WATSON LAB URINE ORDERABLES F inal Result Performing Organization Address [facility]/ZIP Co de Phone Number [facility] [address] [place] [address], * (ABNORMAL) CBC auto differential (10/08/2024 8:30 PM EST) WBC 12.4(H) 4.8 - 10.8 K/mcL LAB HEMETOLOGY METHOD 10/08/2024 8:55 PM [facility] RBC 5.30(H) 3.80 - 4.80 M/mcL LAB HEMETOLOGY METHOD 10/08/2024 8:55 PM [facility] Hemoglobin 13.7 11.5 - 16.0 g/dL LAB HEMETOLOGY METHOD 10/08/2024 8:55 PM [facility] Hematocrit 43.5 35.0 - 47.0 % LAB HEMETOLOGY METHOD 10/08/2024 8:55 PM [facility] MCV 82.5 79.0 - 98.0 FL LAB HEMETOLOGY METHOD 10/08/2024 8:55 PM [facility] MCH 26.0(L) 27.0 - 32.0 pcg LAB HEMETOLOGY METHOD 10/08/2024 8:55 PM [facility] MCHC 31.5(L) 32.0 - 37.0 g/dL LAB HEMETOLOGY METHOD 10/08/2024 8:55 PM [facility] RDW 17.2(H) 11.0 - 15.0 % LAB HEMETOLOGY METHOD 10/08/2024 8:55 PM [facility] Platelets 529(H) 130 - 400 K/mcL LAB HEMETOLOGY METHOD 10/08/2024 8:55 PM [facility] MPV 10.9 7.0 - 11.0 FL LAB HEMETOLOGY METHOD 10/08/2024 8:55 PM [facility] NRBC 0.0 <1.0 % LAB HEMETOLOGY METHOD 10/08/2024 8:55 PM [facility] NRBC Absolute 0.00 <0.10 K/mcL LAB HEMETOLOGY METHOD 10/08/2024 8:55 PM [facility] Neutrophils Relative 91.1 % LAB HEMETOLOGY METHOD 10/08/2024 8:55 PM [facility] Lymphocytes Relative 3.9 % LAB HEMETOLOGY METHOD 10/08/2024 8:55 PM [facility] Monocytes Relative 4.4 % LAB HEMETOLOGY METHOD 10/08/2024 8:55 PM [facility] Eosinophils Relative 0.2 % LAB HEMETOLOGY METHOD 10/08/2024 8:55 PM [facility] Basophils Relative 0.1 % LAB HEMETOLOGY METHOD 10/08/2024 8:55 PM [facility] Immature Granulocytes Relative 0.3 % LAB HEMETOLOGY METHOD 10/08/2024 8:55 PM [facility] Neutrophils Absolute 11.32(H) 1.50 - 7.00 K/mcL LAB HEMETOLOGY METHOD 10/08/2024 8:55 PM EST [facility] Lymphocytes Absolute 0.48(L) 1.00 - 5.00 K/[facility] LAB HEMETOLOGY METHOD 10/08/2024 8:55 PM EST [facility] Monocytes Absolute 0.55 0.20 - 1.00 K/[facility] LAB HEMETOLOGY METHOD 10/08/2024 8:55 PM EST [facility] Eosinophils Absolute 0.03 0.00 - 0.50 K/[facility] LAB HEMETOLOGY METHOD 10/08/2024 8:55 PM EST [facility] Basophils Absolute 0.01 0.00 - 0.20 K/[facility] LAB HEMETOLOGY METHOD 10/08/2024 8:55 PM EST [facility] Immature Granulocytes Absolute 0.04(H) 0.00 - 0.03 K/[facility] LAB HEMETOLOGY METHOD 10/08/2024 8:55 PM EST [facility] Blood Venous blood specimen / Unknown Venipuncture / Unknown 10/08/2024 8:30 PM EST 10/08/2024 8:49 PM EST Vera WATSON LAB BLOOD ORDERABLES F inal Result Performing Organization Address City/[facility] Co de Phone Number [facility] [address] [place] [address], * Lipase (10/08/2024 8:30 PM EST) Lipase 22 13 - 75 unit/L LAB CHEMISTRY METHOD 10/08/2024 9:20 PM EST [facility] Blood Venous blood specimen / Unknown Venipuncture / Unknown 10/08/2024 8:30 PM EST 10/08/2024 8:49 PM EST Vera [employer] [facility] LAB BLOOD ORDERABLES F inal Result [facility] [address] [place] [address], [place] [phone] * (ABNORMAL) Comprehensive Metabolic Panel (CMP) (10/08/2024 8:30 PM EST) Sodium 137 133 - 145 mmol/L LAB CHEMISTRY METHOD 10/08/2024 9:20 PM EST [facility] Potassium 3.9 3.5 - 5.5 mmol/L LAB CHEMISTRY METHOD 10/08/2024 9:20 PM [facility] Chloride 108 96 - 110 mmol/L LAB CHEMISTRY METHOD 10/08/2024 9:20 PM [facility] CO2 23 21 - 32 mmol/L LAB CHEMISTRY METHOD 10/08/2024 9:20 PM [facility] Anion Gap 6 3 - 11 LAB CHEMISTRY METHOD 10/08/2024 9:20 PM [facility] Glucose 107(H) 70 - 100 mg/dL LAB CHEMISTRY METHOD 10/08/2024 9:20 PM [facility] BUN 21 5 - 25 mg/dL LAB CHEMISTRY METHOD 10/08/2024 9:20 PM [facility] Creatinine 0.75 0.50 - 1.10 mg/dL LAB CHEMISTRY METHOD 10/08/2024 9:20 PM [facility] eGFR 88 >=60 mL/min/1. 73m2 LAB CHEMISTRY METHOD 10/08/2024 9:20 PM [facility] Comment:Calculation based on the??Chronic Kidney Disease Epidemiology Collaboration (CKD-EPI) equation refit??without adjustment for race. BUN/Creatinine Ratio 28.0 LAB CHEMISTRY METHOD 10/08/2024 9:20 PM [facility] Calcium 9.2 8.5 - 10.5 mg/dL LAB CHEMISTRY METHOD 10/08/2024 9:20 PM [facility] AST (SGOT) 19 10 - 42 unit/L LAB CHEMISTRY METHOD 10/08/2024 9:20 PM [facility] ALT (SGPT) 20 10 - 60 unit/L LAB CHEMISTRY METHOD 10/08/2024 9:20 PM [facility] Alkaline Phosphatase 98 42 - 121 unit/L LAB CHEMISTRY METHOD 10/08/2024 9:20 PM [facility] Total Protein 6.9 6.0 - 8.0 g/dL LAB CHEMISTRY METHOD 10/08/2024 9:20 PM EST [facility] Albumin 3.6 3.2 - 5.0 g/dL LAB CHEMISTRY METHOD 10/08/2024 9:20 PM [facility] Total Bilirubin 0.4 0.0 - 1.4 mg/dL LAB CHEMISTRY METHOD 10/08/2024 9:20 PM [facility] Blood Venous blood specimen / Unknown Venipuncture / Unknown 10/08/2024 8:30 PM EST 10/08/2024 8:49 PM EST Vera WATSON LAB BLOOD ORDERABLES F inal Result [facility] [address] [place] [address], * XR Chest 2 Views (10/08/2024 6:06 [...] Signed Date: 10/09/2024 08:31 ET Workstation ID: [id number] Transcribed By: Self Edit Transcribed Date: 10/09/2024 [...] Signed Date: 10/09/2024 08:31 ET Workstation ID: [id number] Transcribed By: Self Edit Transcribed Date: 10/09/2024 08:31 ET Hao Bui MD IMG XR PROCEDURES Final Result * Respiratory virus panel molecular study (10/08/2024 5:58 PM EST) Adenovirus Detection by PCR Not Detected Not Detected LAB MICROBIOLOGY METHOD 10/08/2024 7:09 PM [facility] Influenza A PCR Not Detected Not Detected LAB MICROBIOLOGY METHOD 10/08/2024 7:09 PM [facility] Influenza B PCR Not Detected Not Detected LAB MICROBIOLOGY METHOD 10/08/2024 7:09 PM [facility] Coronavirus 229E Not Detected Not Detected LAB MICROBIOLOGY METHOD 10/08/2024 7:09 PM [facility] Coronavirus HKU1 Not Detected Not Detected LAB MICROBIOLOGY METHOD 10/08/2024 7:09 PM [facility] Coronavirus OC43 Not Detected Not Detected LAB MICROBIOLOGY METHOD 10/08/2024 7:09 PM [facility] Coronavirus NL63 Not Detected Not Detected LAB MICROBIOLOGY METHOD 10/08/2024 7:09 PM [facility] Parainfluenza Virus 1 Not Detected Not Detected LAB MICROBIOLOGY METHOD 10/08/2024 7:09 PM [facility] Parainfluenza Virus 2 Not Detected Not Detected LAB MICROBIOLOGY METHOD 10/08/2024 7:09 PM [facility] Parainfluenza Virus 3 Not Detected Not Detected LAB MICROBIOLOGY METHOD 10/08/2024 7:09 PM [facility] Parainfluenza Virus 4 Not Detected Not Detected LAB MICROBIOLOGY METHOD 10/08/2024 7:09 PM [facility] RSV PCR Not Detected Not Detected LAB MICROBIOLOGY METHOD 10/08/2024 7:09 PM [facility] Human Metapneumovirus A and B Not Detected Not Detected LAB MICROBIOLOGY METHOD 10/08/2024 7:09 PM [facility] Rhinovirus/Entero virus Not Detected Not Detected LAB MICROBIOLOGY METHOD 10/08/2024 7:09 PM [facility] Bordetella pertussis Not Detected Not Detected LAB MICROBIOLOGY METHOD 10/08/2024 7:09 PM [facility] Bordetella parapertussis Not Detected Not Detected LAB MICROBIOLOGY METHOD 10/08/2024 7:09 PM [facility] Mycoplasma pneumo by PCR Not Detected Not Detected LAB MICROBIOLOGY METHOD 10/08/2024 7:09 PM [facility] Chlamydia pneumoniae Not Detected Not Detected LAB MICROBIOLOGY METHOD 10/08/2024 7:09 PM [facility] SARS COV-2 Not Detected Not Detected LAB MICROBIOLOGY METHOD 10/08/2024 7:09 PM [facility] Swab Both anterior nares / Unknown Non-blood Collection / Unknown 10/08/2024 5:58 PM EST 10/08/2024 6:05 PM EST Narrative [facility] - 10/08/2024 7:09 PM EST Testing was performed using the [employer] Respiratory Pathogen PCR Assay. All results must [...] Hao Bui MD LAB MICROBIOLOGY - GENERAL ORDJeny DESAI Final Result Performing Organization Address City/[facility]/ZIP Co de Phone Number [facility] [address] [place] [address], [place] [phone] * Rapid strep A screen (10/08/2024 5:58 PM EST) Strep A Ag Negative Negative, Invalid 10/08/2024 6:18 PM EST [facility] Comment:Refer to Throat Cult ure. Swab Structure of anterior portion of neck / Unknown Non-blood Collection / Unknown 10/08/2024 5:58 PM EST 10/08/2024 6:05 PM EST us Hao Bui MD LAB MICROBIOLOGY - GENERAL ORDE GISELLE Final Result [facility] [address] [place] [address], [place] [phone] * Culture throat (10/08/2024 5:58 PM EST) Culture, Throat No pathogens isolated. 10/10/2024 11:52 AM EST [facility] Swab Structure of anterior portion of neck / Unknown Non-blood Collection / Unknown 10/08/2024 5:58 PM EST 10/08/2024 6:05 PM EST us Hao Bui MD LAB MICROBIOLOGY - GENERAL ORDE GISELLE Final Result [facility] [address] [place] [address], from Last 3 Months Insurance [place] Care Teams Transportation Program Director Relationship Specialty Start Date End Date Mayo Pablo NP [address] [place] [address] PCP - General Family Medicine 10/08/24
[2024-10-24 12:22] LABS: MANUAL DIFF FLAG NO
[2024-10-24 13:17] LABS: Basophils Absolute Auto 0.1 X10*3/uL (0.0-0.2); Basophils Percent Auto 0.7 % (0-2); Eosinophils Absolute Auto 0.1 X10*3/uL (0.0-0.4); Eosinophils Percent Auto 1.3 % (0-4); Hematocrit 40.8 % (37.0-47.0); Imm Gran Abs Auto 0.03 X10*3/uL (0.00-0.03); Imm Gran Pct Auto 0.3 % (0.0-0.4); Lymphocytes Absolute Auto 1.8 X10*3/uL (1.2-4.9); Lymphocytes Percent Auto 17.3 % (20-40); Mean Corpuscular HGB Conc 31.9 g/dl (31.0-35.0); Mean Corpuscular Hemoglobin 25.4 pg (27.0-33.0); Mean Corpuscular Volume 79.7 fL (80.0-98.0); Mean Platelet Volume 10.5 fL (9.4-12.3); Monocytes Absolute Auto 0.8 X10*3/uL (0.1-1.2); Monocytes Percent Auto 8.3 % (2-11); Neutrophils Absolute Auto 7.3 x10*3/uL (2.0-8.3); Neutrophils Percent Auto 72.1 % (45-73); Platelet Count 702 X10*3/uL (160-400); Red Blood Count 5.12 X10*6/uL (4.20-5.50); Red Cell Distribution Width 16.7 % (11.0-16.0); White Blood Count 10.1 X10*3/uL (4.8-10.8)
[2024-10-24 13:48] LABS: Alanine Aminotransferase 17 U/L (0-31); Aspartate Amino Transferase 27 U/L (5-31); Cholesterol 218 mg/dL (<200); HDL Cholesterol 64 mg/dL (>40); LDL Cholesterol Calculated 133 mg/dL (<100); Triglycerides 106 mg/dL (<150)
== END ==
LOC: HO.CARD 10:45
PROVIDERS: PCP Physician Assistant Medical; Visit Provider Physician Assistant Medical
DX: R07.9 Chest pain, unspecified (principal); R06.09 Other forms of dyspnea; E78.5 Hyperlipidemia, unspecified; E78.00 Pure hypercholesterolemia, unspecified; R79.89 Other specified abnormal findings of blood chemistry
CPT/HCPCS: 36415; 80061; 84450; 84460; 85025; 93017

== ENCOUNTER → 2024-10-24 10:49 | Outpatient (BNV) | payer MEDICARE, MEDICAID, SELFPAY | PROVIDERS: PCP Physician Assistant Medical | DX: R06.02 Shortness of breath (principal) | CPT/HCPCS: 78452; 93016; 93018 ==

== ENCOUNTER 2024-10-30 14:17 | Outpatient (AMB) | payer MEDICARE, MEDICAID, SELFPAY ==
[2024-10-30 14:29] VITALS: BP 144/78; PULSE 106; O2SAT 98; BMI 35.5
--- NOTE | 2024-10-30 14:29 | A.OFFPC_ITS ---
Vital Signs 10/30/24 14:29 10/30/24 15:05 Height 4 ft 11 in Weight 176 lb BMI 35.5 BP 144/78 H 118/60 Blood Pressure Location Rt brachial Position Sitting Pulse 106 H 92 Pulse Source Pulse Oximeter Pulse Oximetry (%) 98 Oxygen Delivery Method Room Air Intake Visit Reasons: f/u blood work /stress test Allergies azithromycin Adverse Reaction (Intermediate, Verified 10/30/24 14:32) Nausea colonoscopy prep Adverse Reaction (Intermediate, Uncoded 10/30/24 14:32) Nausea Tobacco use date assessed: 10/30/24 Fall risk assessment: No Falls in past year Last assessed Fall Risk: 10/30/24 Dental Screening Dental Screen Date: 10/30/24 Did you have a dental visit in the last 12 months?: No Did you have a dental problem in the last 6 months where you did not have access to dental care?: No Was dental information given to patient?: Patient has dentist HPI HPI Comments History of Present Illness Details This is a 64-year-old female with a past medical history of esophageal dysmotility, depression, heart murmur, Barretts esophagus and GERD presenting for follow up. Hyperlipidemia-the patient did not start atorvastatin. She does not want to take medication to lower her cholesterol out of concern for side effects and not wanting to take medicines. She modified her diet, and she is trying to exercise more. Her LDL decreased from 170 to 133. Triglycerides 106 and HDL cholesterol 64. She underwent a nuclear stress test on 10/24/24 which was negative. The patient also had an echocardiogram on 07/28/2024 which was essentially normal and demonstrated an ejection fraction between 65 and 70%. As you recall she has been evaluated for chest pain in the past. She has episodes that last 15-20 minutes. They occur abruptly and are described as an 8/10 sharp aching pain across her chest. They are not triggered by exertion or eating. She associated nausea with the pain sometimes. The pain does not radiate. She denied neck and jaw discomfort or heaviness in her arms. She had endorse some dyspnea on exertion for the past 2-3 years. She did not associate chest pain with exertion. She has a diagnosis of asthma. She reported getting many EKGs in the past for evaluation of chest pain which were normal. It was thought that her symptoms could be attributed to her history of acid reflux and esophageal dysmotility. She did go to [facility] in 10/26/2023 for evaluation of chest pain and had a negative chest x-ray, and her EKG showed normal sinus rhythm and no ischemic changes. She has a history of Escobedo's esophagus and a positive Cologuard test which was done before she relocated to [place]. She takes pantoprazole 40 mg daily. The patient saw Gastroenterology on 08/21/2024, and she was to be scheduled for endoscopy and colonoscopy, but cardiac testing had to be completed prior to this. We reviewed her recent lab results. She is not anemic, but MCV and MCH are a little low. Her platelet count was 590,000 on 08/23/2024, so she was instructed to repeat this, and it was 702,000 on 10/24/2024, but she reports that she was recently seen at the emergency department for a severe sore throat, and she was treated with amoxicillin though strep testing was negative. Her symptoms resolved. She does not drink alcohol. She does not smoke. ALT and AST normal 10/24/2024. TSH also normal 08/23/2024. She does not recall if she was sick in August when she had the initial blood tests done. The patient saw vascular surgery on 07/21/2024 for evaluation of symptomatic varicose veins in her lower extremities. She was advised to try compression stockings, and venous insufficiency testing was ordered. She is going to follow up once the testing is completed. ROS: Constitutional: No unexplained weight loss, fever, chills, fatigue or night sweats. Eyes: No vision changes, blurry vision, double vision, eye pain, eye redness, eye discharge. ENT: No hearing loss, sneezing, congestion, runny nose or sore throat. Respiratory: No cough, sputum production or hemoptysis. See HPI. Cardiovascular: See HPI Gastrointestinal: No anorexia, nausea, vomiting or diarrhea. No abdominal pain or blood in stool. Neurologic: No headache, dizziness, syncope Hematologic/Lymphatics: No bleeding or bruising. No painful lymph nodes. Denies history of blood disorders and blood clots. Denies personal history of blood clots. Skin: No rash or itching. Endocrine: No cold or heat intolerance. No polyuria or polydipsia. Physical exam: Constitutional: Alert, in no distress. Head: Normocephalic. Eyes: Pupils are equal, round and reactive to light. Extraocular muscles intact. Ear, Nose and Throat: Canals clear. TMs normal. Normal nasal mucosa. No nasal discharge. No oral lesions. Neck: Supple, Full range of motion. No lymphadenopathy. No palpable thyroid masses. Respiratory: Clear to auscultation. Cardiovascular: S1 S2 regular. No murmurs. I/ systolic murmur Gastrointestinal: Abdomen soft, non-tender, non-distended. Normal bowel sounds. No palpable masses. Neurologic: No focal neurological deficits. Psychiatric: Normal mood and affect [facility] Medical History Elevated platelet count Pure hypercholesterolemia Osteopenia WARD (dyspnea on exertion) Varicose veins of both legs with edema Varicose veins of ankle Chest pain Numbness in feet Esophageal dysmotility History of depression History of malignant neoplasm of cervix Screening for diabetes mellitus (DM) Heart murmur Tobacco use disorder Escobedo esophagus History of positive hepatitis C Positive colorectal cancer screening using Cologuard test Surgical History S/P surgery on nasal septum History of tonsillectomy Family History Unknown Family history of colon cancer Social History Housing: House Patient Tobacco Use Status: Current everyday Tobacco user Cigarette Packs Per Day: 0.25 Cigarettes Per Day: 1 Years Smoked: 40 e-Cigarette/Vaping Use: Never Used Second Hand Smoke Exposure: No service: No 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 1. Little interest or pleasure in doing things: several days 2. Feeling down, depressed, or hopeless: several days 3. Trouble falling or staying asleep, or sleeping too much: more than half the days 4. Feeling tired or having little energy: more than half the days 5. Poor appetite or overeating: not at all 6. Feeling bad about yourself - or that you are a failure or have let yourself or your family down: several days 7. Trouble concentrating on things, such as reading the newspaper or watching television: several days 8. Moving or speaking so slowly that other people could have noticed. Or the opposite - being so fidgety or restless that you have been moving around a lot more than usual: not at all 9. Thoughts that you would be better off or of hurting yourself in some way: not at all Total score: 8 Source: Developed by Drs. Fracisco Edward, Klaudia Peters, Main Grant and colleagues, with an educational felipe from [employer]. Thrive Questionnaire Date Thrive assessed: 10/06/24 I am a: Patient What is your living situation today?: I have a place to live, but I am worried about losing it in the future Within the past 12 months, did the food you bought not last and you didn't have the money to get more?: Never true Within the past 12 months, did you worry whether your food would run out before you got money to buy more?: Sometimes True Do you have trouble paying for medicines?: No Do you have trouble getting transportation to medical appointments?: No Do you have trouble paying your heating and electricity bill?: Yes Do you have trouble taking care of your child, family member or friend?: No Do you have trouble with day-to-day activities such as bathing, preparing meals, shopping, managing finances, etc.?: Yes Are you currently unemployed and looking for a job?: No Are you interested in more education?: No Currently or been in a relationship where the following occur: I choose not to answer THRIVE Score: 3 AUDIT C Alcohol Use Questionnaire (AUDIT-C) 1. How often do you have a drink containing alcohol?: Monthly or less 2. How many drinks containing alcohol do you have on a typical day when you are drinking?: 1 or 2 3. How often do you have six or more drinks on one occasion?: Never Total Score: 1 HAYDEN-7 AMB Questionnaire HAYDEN-7 Date HAYDEN - 7 assessed: 10/30/24 Feeling nervous, anxious, or on edge: 0 = Not at all Not being able to stop or control worryin = Not at all Worrying too much about different things: 0 = Not at all Trouble relaxin = Not at all Being so restless that it is hard to sit still: 0 = Not at all Becoming easily annoyed or irritable: 2 = More than half the days Feeling afraid as if something awful might happen: 0 = Not at all Total HAYDEN-7 score (0-4 normal; 5-9 mild; 10-14 moderate; 15-21 severe): 2 Source: Developed by Drs. Fracisco Edward, Klaudia Peters, Main Grant and colleagues, with an educational felipe from [employer]. Physical exam (Primary Care) Vital Signs: Last Vital Signs Pulse 92 10/30/24 15:05 BP 118/60 10/30/24 15:05 Pulse Ox 98 10/30/24 14:29 Oxygen Delivery Method Room Air 10/30/24 14:29 BMI result Body Mass Index 35.5 Tobacco/Smoking Status: Tobacco use Status Tobacco use date assessed 10/30/24 10/30/24 14:34 Patient Tobacco Use Status Current everyday Tobacco 10/30/24 14:34 e-Cigarette/Vaping Use Never Used 10/30/24 14:34 PHQ-9: PHQ-9 Score PHQ-9: Total score 8 10/30/24 15:00 Thrive Assessment: Date of Thrive Assessment Date Thrive assessed 10/06/24 10/30/24 14:34 Currently or been in a relationship where the following occur: I choose not to answer Coding Level of Care Code Est Pt Level 5 (46125) Complex EM visit Add On G2211 Diagnoses Pure hypercholesterolemia E78.00 Elevated platelet count R79.89 Varicose veins of both lower extremities with inflammation I83.11; I83.12 Chest pain R07.9 Escobedo esophagus K22.70 Positive colorectal cancer screening using Cologuard test R19.5 Time Spent (min) 52 Comment Chart review, direct patient care, completing documentation Assessment & Plan Assessment & Plan (1) Pure hypercholesterolemia: Code(s): E78.00 - Pure hypercholesterolemia, unspecified Category: Medical Plan: Patient declines medications, and she has significantly lowered her LDL cholesterol with lifestyle modifications. We will continue to monitor for now. We discussed that elevated cholesterol is believed to be a risk factor for cardiovascular disease. Reviewed Mediterranean diet. (2) Elevated platelet count: Code(s): R79.89 - Other specified abnormal findings of blood chemistry Category: Medical Plan: She was sick with pharyngitis which may account for the increase recently in her platelets, but she also had elevated platelets in August. We will start her on a baby aspirin regimen. Advised to hold this 7 days prior to colonoscopy and EGD. Bleeding risk reviewed. Refer to hematology for further evaluation. Repeat CBC with iron and ferritin. (3) Varicose veins of both lower extremities with inflammation: Code(s): I83.11 - Varicose veins of right lower extremity with inflammation; I83.12 - Varicose veins of left lower extremity with inflammation Category: Medical Plan: Continue management per vascular specialist. (4) Chest pain: Code(s): R07.9 - Chest pain, unspecified Category: Medical Plan: Atypical chest pain reported by the patient for years. Stress test and echocardiogram reassuring. This may be related to GERD and esophageal dysmotility or musculoskeletal pain. She is going to proceed with GI evaluation. (5) Escobedo esophagus: Code(s): K22.70 - Escobedo's esophagus without dysplasia Category: Medical Plan: Continue PPI and management per Gastroenterology. She is going to proceed with EGD. (6) Positive colorectal cancer screening using Cologuard test: Code(s): R19.5 - Other fecal abnormalities Category: Medical Plan: She is going to proceed with colonoscopy per gastro. Plan She will schedule a follow up with me in 3 months. Orders: Orders Complete Blood Count Auto Diff 10/30/24 R79.89 - Other specified abnormal findings of blood chemistry IRON PROFILE 10/30/24 R79.89 - Other specified abnormal findings of blood chemistry Ferritin 10/30/24 R79.89 - Other specified abnormal findings of blood chemistry Referrals Hematology & Oncology Referral R79.89 - Other specified abnormal findings of blood chemistry Medications: New aspirin 81 mg PO DAILY 90 tabs 0RF Discontinued atorvastatin Discontinued Reason: Doctor's Order 20 mg PO BEDTIME 90 tabs 0RF
[2024-10-30 15:05] VITALS: BP 118/60; PULSE 92
--- OUTSIDE RECORDS SUMMARY | 2024-10-30 16:26 | XMS_ITS | Encounter Summary ---
Author Organization [facility] Address [address] [place] [address] Care Team Providers Care Kiln Transfer Operator Name Role Phone Mayo Pablo NP Primary Care Provider [phone] Reason for Visit * Reason Comments Sore Throat Sore throat since th is am Encounter Details Date Type Department Care Team (Late st Contact Info) Description 10/08/2024 6:56 PM EST - 10/08/2024 11:29 PM EST Emergency [facility] Emergency [address] [place] [address] Hao Bui MD [address] [place] [address] Enteritis (Primary Dx); Nausea; Diarrhea, unspecified type; [...] REFLEX MICROSCOPIC AND CULTURE - Abnormal Specific [place] Urine 1.030 pH, Urine 5.5 Leukocytes, Urine [...] Detected Narrative: Testing was performed using the [employer] Respiratory Pathogen PCR Assay. All results must [...] Procedure Abnormality Status --------- ------ CBC auto differential[[id number]] Abnormal Final result Please view results for these tests on the individual orders. URINALYSIS WITH REFLEX MICROSCOPIC AND CULTURE Narrative: The following orders were created for panel order Urinalysis with reflex microscopic and culture. Procedure Abnormality Status --------- ------ Urinalysis with reflex ...[[id number]] Abnormal Final result [place] urine culture tube[[id number]] Final result Please view results for these [...] culture tube (10/08/2024 9:41 PM EST) Pathologist [facility] [place] Extra Tube Hold for add-ons. 10/08/2024 11:01 PM EST [facility] Comment:Auto resulted. Urine Urine specimen obtained by clean catch procedure / Unknown Non-blood Collection / Unknown 10/08/2024 9:41 PM EST 10/08/2024 9:55 PM EST us Vera WATSON LAB URINE ORDERABLES F inal Result [facility] [address] [place] [address], [place] [phone] * (ABNORMAL) Urinalysis with reflex microscopic and culture (10/08/2024 9:41 PM EST) Pathologist [facility] [place] Specific [place] Urine 1.030 1.003 - 1.030 LAB URINALYSIS - AUTOMATED METHOD 10/08/2024 10:13 PM [facility] pH, Urine 5.5 5.0 - 8.0 pH LAB URINALYSIS - AUTOMATED METHOD 10/08/2024 10:13 PM [facility] Leukocytes, Urine Negative Negative LAB URINALYSIS - AUTOMATED METHOD 10/08/2024 10:13 PM [facility] Nitrite, Urine Negative Negative LAB URINALYSIS - AUTOMATED METHOD 10/08/2024 10:13 PM [facility] Protein, Urine 30(A) <=Trace mg/dL LAB URINALYSIS - AUTOMATED METHOD 10/08/2024 10:13 PM [facility] Glucose, Urine Negative Negative mg/dL LAB URINALYSIS - AUTOMATED METHOD 10/08/2024 10:13 PM [facility] Ketones, Urine Negative Negative mg/dL LAB URINALYSIS - AUTOMATED METHOD 10/08/2024 10:13 PM [facility] Urobilinogen, Urine 0.2 0.2 - 1.0 mg/dL LAB URINALYSIS - AUTOMATED METHOD 10/08/2024 10:13 PM [facility] Bilirubin, Urine Negative Negative LAB URINALYSIS - AUTOMATED METHOD 10/08/2024 10:13 PM [facility] Blood, Urine Negative Negative LAB URINALYSIS - AUTOMATED METHOD 10/08/2024 10:13 PM [facility] RBC, Urine 2.4 0 - 4 /HPF LAB URINALYSIS - AUTOMATED METHOD 10/08/2024 10:13 PM [facility] WBC, Urine 4.1(H) 0 - 4 /HPF LAB URINALYSIS - AUTOMATED METHOD 10/08/2024 10:13 PM [facility] Squamous Epithelial, Urine 72(H) 0 - 60 /LPF LAB URINALYSIS - AUTOMATED METHOD 10/08/2024 10:13 PM [facility] Bacteria, Urine Negative Negative /HPF LAB URINALYSIS - AUTOMATED METHOD 10/08/2024 10:13 PM [facility] Hyaline Casts, Urine 0.8 0 - 3 /LPF LAB URINALYSIS - AUTOMATED METHOD 10/08/2024 10:13 PM [facility] Urine Urine specimen obtained by clean catch procedure / Unknown Non-blood Collection / Unknown 10/08/2024 9:41 PM EST 10/08/2024 9:55 PM EST Vera WATSON LAB URINE ORDERABLES F inal Result [facility] [address] [place] [address], * (ABNORMAL) CBC auto differential (10/08/2024 8:30 PM EST) WBC 12.4(H) 4.8 - 10.8 K/mcL LAB HEMETOLOGY METHOD 10/08/2024 8:55 PM [facility] RBC 5.30(H) 3.80 - 4.80 M/mcL LAB HEMETOLOGY METHOD 10/08/2024 8:55 PM [facility] Hemoglobin 13.7 11.5 - 16.0 g/dL LAB HEMETOLOGY METHOD 10/08/2024 8:55 PM [facility] Hematocrit 43.5 35.0 - 47.0 % LAB HEMETOLOGY METHOD 10/08/2024 8:55 PM [facility] MCV 82.5 79.0 - 98.0 FL LAB HEMETOLOGY METHOD 10/08/2024 8:55 PM [facility] MCH 26.0(L) 27.0 - 32.0 pcg LAB HEMETOLOGY METHOD 10/08/2024 8:55 PM [facility] MCHC 31.5(L) 32.0 - 37.0 g/dL LAB HEMETOLOGY METHOD 10/08/2024 8:55 PM [facility] RDW 17.2(H) 11.0 - 15.0 % LAB HEMETOLOGY METHOD 10/08/2024 8:55 PM [facility] Platelets 529(H) 130 - 400 K/mcL LAB HEMETOLOGY METHOD 10/08/2024 8:55 PM [facility] MPV 10.9 7.0 - 11.0 FL LAB HEMETOLOGY METHOD 10/08/2024 8:55 PM [facility] NRBC 0.0 <1.0 % LAB HEMETOLOGY METHOD 10/08/2024 8:55 PM [facility] NRBC Absolute 0.00 <0.10 K/mcL LAB HEMETOLOGY METHOD 10/08/2024 8:55 PM [facility] Neutrophils Relative 91.1 % LAB HEMETOLOGY METHOD 10/08/2024 8:55 PM [facility] Lymphocytes Relative 3.9 % LAB HEMETOLOGY METHOD 10/08/2024 8:55 PM [facility] Monocytes Relative 4.4 % LAB HEMETOLOGY METHOD 10/08/2024 8:55 PM [facility] Eosinophils Relative 0.2 % LAB HEMETOLOGY METHOD 10/08/2024 8:55 PM [facility] Basophils Relative 0.1 % LAB HEMETOLOGY METHOD 10/08/2024 8:55 PM [facility] Immature Granulocytes Relative 0.3 % LAB HEMETOLOGY METHOD 10/08/2024 8:55 PM [facility] Neutrophils Absolute 11.32(H) 1.50 - 7.00 K/mcL LAB HEMETOLOGY METHOD 10/08/2024 8:55 PM [facility] Lymphocytes Absolute 0.48(L) 1.00 - 5.00 K/mcL LAB HEMETOLOGY METHOD 10/08/2024 8:55 PM [facility] Monocytes Absolute 0.55 0.20 - 1.00 K/mcL LAB HEMETOLOGY METHOD 10/08/2024 8:55 PM [facility] Eosinophils Absolute 0.03 0.00 - 0.50 K/mcL LAB HEMETOLOGY METHOD 10/08/2024 8:55 PM EST [facility] Basophils Absolute 0.01 0.00 - 0.20 K/[facility] LAB HEMETOLOGY METHOD 10/08/2024 8:55 PM EST [facility] Immature Granulocytes Absolute 0.04(H) 0.00 - 0.03 K/[facility] LAB HEMETOLOGY METHOD 10/08/2024 8:55 PM EST [facility] Blood Venous blood specimen / Unknown Venipuncture / Unknown 10/08/2024 8:30 PM EST 10/08/2024 8:49 PM EST Vera [facility] LAB BLOOD ORDERABLES F inal Result Performing Organization Address [facility]/ZIP Co de Phone Number [facility] [address] [place] [address], [place] [phone] * Lipase (10/08/2024 8:30 PM EST) Pathologist [facility] [place] Lipase 22 13 - 75 unit/L LAB CHEMISTRY METHOD 10/08/2024 9:20 PM EST [facility] Blood Venous blood specimen / Unknown Venipuncture / Unknown 10/08/2024 8:30 PM EST 10/08/2024 8:49 PM EST Vera [facility] LAB BLOOD ORDERABLES F inal Result [facility] [address] [place] [address], * (ABNORMAL) Comprehensive Metabolic Panel (CMP) (10/08/2024 8:30 PM EST) Sodium 137 133 - 145 mmol/L LAB CHEMISTRY METHOD 10/08/2024 9:20 PM EST [facility] Potassium 3.9 3.5 - 5.5 mmol/L LAB CHEMISTRY METHOD 10/08/2024 9:20 PM [facility] Chloride 108 96 - 110 mmol/L LAB CHEMISTRY METHOD 10/08/2024 9:20 PM [facility] CO2 23 21 - 32 mmol/L LAB CHEMISTRY METHOD 10/08/2024 9:20 PM [facility] Anion Gap 6 3 - 11 LAB CHEMISTRY METHOD 10/08/2024 9:20 PM [facility] Glucose 107(H) 70 - 100 mg/dL LAB CHEMISTRY METHOD 10/08/2024 9:20 PM [facility] BUN 21 5 - 25 mg/dL LAB CHEMISTRY METHOD 10/08/2024 9:20 PM [facility] Creatinine 0.75 0.50 - 1.10 mg/dL LAB CHEMISTRY METHOD 10/08/2024 9:20 PM [facility] eGFR 88 >=60 mL/min/1. 73m2 LAB CHEMISTRY METHOD 10/08/2024 9:20 PM [facility] Comment:Calculation based on the??Chronic Kidney Disease Epidemiology Collaboration (CKD-EPI) equation refit??without adjustment for race. BUN/Creatinine Ratio 28.0 LAB CHEMISTRY METHOD 10/08/2024 9:20 PM [facility] Calcium 9.2 8.5 - 10.5 mg/dL LAB CHEMISTRY METHOD 10/08/2024 9:20 PM [facility] AST (SGOT) 19 10 - 42 unit/L LAB CHEMISTRY METHOD 10/08/2024 9:20 PM [facility] ALT (SGPT) 20 10 - 60 unit/L LAB CHEMISTRY METHOD 10/08/2024 9:20 PM [facility] Alkaline Phosphatase 98 42 - 121 unit/L LAB CHEMISTRY METHOD 10/08/2024 9:20 PM [facility] Total Protein 6.9 6.0 - 8.0 g/dL LAB CHEMISTRY METHOD 10/08/2024 9:20 PM EST [facility] Albumin 3.6 3.2 - 5.0 g/dL LAB CHEMISTRY METHOD 10/08/2024 9:20 PM EST [facility] Total Bilirubin 0.4 0.0 - 1.4 mg/dL LAB CHEMISTRY METHOD 10/08/2024 9:20 PM EST [facility] Blood Venous blood specimen / Unknown Venipuncture / Unknown 10/08/2024 8:30 PM EST 10/08/2024 8:49 PM EST Vera WATSON LAB BLOOD ORDERABLES F inal Result [facility] [address] [place] [address], [place] [phone] * XR Chest 2 Views (10/08/2024 6:06 [...] Signed Date: 10/09/2024 08:31 ET Workstation ID: [id number] Transcribed By: Self Edit Transcribed Date: 10/09/2024 [...] Signed Date: 10/09/2024 08:31 ET Workstation ID: [id number] Transcribed By: Self Edit Transcribed Date: 10/09/2024 08:31 ET Hao Bui MD IMG XR PROCEDURES Final Result * Culture throat (10/08/2024 5:58 PM EST) [facility] Culture, Throat No pathogens isolated. 10/10/2024 11:52 AM EST [facility] Swab Structure of anterior portion of neck / Unknown Non-blood Collection / Unknown 10/08/2024 5:58 PM EST 10/08/2024 6:05 PM EST Hao Bui MD LAB MICROBIOLOGY - GENERAL ASYA DESAI Final Result Performing Organization Address [facility] Co de Phone Number [facility] [address] [place] [address], [place] [phone] * Rapid strep A screen (10/08/2024 5:58 PM EST) [facility] Strep A Ag Negative Negative, Invalid 10/08/2024 6:18 PM EST [facility] Comment:Refer to Throat Cult ure. Swab Structure of anterior portion of neck / Unknown Non-blood Collection / Unknown 10/08/2024 5:58 PM EST 10/08/2024 6:05 PM EST us Hao Bui MD LAB MICROBIOLOGY - GENERAL ASYA DESAI Final Result Performing Organization Address City/[facility]/ZIP Co de Phone Number [facility] [address] [place] [address], * Respiratory virus panel molecular study (10/08/2024 5:58 PM EST) Adenovirus Detection by PCR Not Detected Not Detected LAB MICROBIOLOGY METHOD 10/08/2024 7:09 PM EST [facility] Influenza A PCR Not Detected Not Detected LAB MICROBIOLOGY METHOD 10/08/2024 7:09 PM EST [facility] Influenza B PCR Not Detected Not Detected LAB MICROBIOLOGY METHOD 10/08/2024 7:09 PM EST [facility] Coronavirus 229E Not Detected Not Detected LAB MICROBIOLOGY METHOD 10/08/2024 7:09 PM EST [facility] Coronavirus HKU1 Not Detected Not Detected LAB MICROBIOLOGY METHOD 10/08/2024 7:09 PM EST [facility] Coronavirus OC43 Not Detected Not Detected LAB MICROBIOLOGY METHOD 10/08/2024 7:09 PM EST [facility] Coronavirus NL63 Not Detected Not Detected LAB MICROBIOLOGY METHOD 10/08/2024 7:09 PM EST [facility] Parainfluenza Virus 1 Not Detected Not Detected LAB MICROBIOLOGY METHOD 10/08/2024 7:09 PM [facility] Parainfluenza Virus 2 Not Detected Not Detected LAB MICROBIOLOGY METHOD 10/08/2024 7:09 PM EST [facility] Parainfluenza Virus 3 Not Detected Not Detected LAB MICROBIOLOGY METHOD 10/08/2024 7:09 PM EST [facility] Parainfluenza Virus 4 Not Detected Not Detected LAB MICROBIOLOGY METHOD 10/08/2024 7:09 PM EST [facility] RSV PCR Not Detected Not Detected LAB MICROBIOLOGY METHOD 10/08/2024 7:09 PM EST [facility] Human Metapneumovirus A and B Not Detected Not Detected LAB MICROBIOLOGY METHOD 10/08/2024 7:09 PM EST [facility] Rhinovirus/Entero virus Not Detected Not Detected LAB MICROBIOLOGY METHOD 10/08/2024 7:09 PM [facility] Bordetella pertussis Not Detected Not Detected LAB MICROBIOLOGY METHOD 10/08/2024 7:09 PM [facility] Bordetella parapertussis Not Detected Not Detected LAB MICROBIOLOGY METHOD 10/08/2024 7:09 PM [facility] Mycoplasma pneumo by PCR Not Detected Not Detected LAB MICROBIOLOGY METHOD 10/08/2024 7:09 PM [facility] Chlamydia pneumoniae Not Detected Not Detected LAB MICROBIOLOGY METHOD 10/08/2024 7:09 PM [facility] SARS COV-2 Not Detected Not Detected LAB MICROBIOLOGY METHOD 10/08/2024 7:09 PM [facility] Swab Both anterior nares / Unknown Non-blood Collection / Unknown 10/08/2024 5:58 PM EST 10/08/2024 6:05 PM EST [facility] - 10/08/2024 7:09 PM EST Testing was performed using the [employer] Respiratory Pathogen PCR Assay. All results must [...] MICROBIOLOGY - GENERAL ASYA DESAI Final Result [facility] [address] [place] [address], documented in this encounter Visit Diagnoses Diagnosis [...] documented as of this encounter Care Teams Kiln Transfer Operator Relationship Specialty Start Date End Date Mayo Pablo NP [address] [place] [phone] PCP - General Family Medicine 10/08/24 documented as of this encounter
--- OUTSIDE RECORDS SUMMARY | 2024-10-30 16:26 | XMS_ITS | Clinical Summary ---
Author Organization [facility] Address [address] [place] [address] Care Team Providers Care Special Officer Automat Name Role Phone Chris Carias Primary Care Provider [phone] Source Comments PLEASE NOTE, if this patient is a minor, it may be UNLAWFUL to discuss sensitive information that is contained in these records (such as FAMILY PLANNING, MENTAL HEALTH or SUBSTANCE ABUSE) with the minor patient's parent or other person without the patient's specific authorization.[facility] Allergies Active Allergy Reactions Criticality Noted Date Comments Erythromycin Medium 11/04/2021 Pt gets sick/fever. Erythromycin Base 07/15/2021 Tree Nut 04/22/2020 Medications albuterol sulfate (VENTOLIN HFA) 90 mcg/actuation inhaler Ventolin HFA 90 mcg/actuation aerosol inhaler Inhale 1 puff every 4-6 hours by inhalation route as needed. Active NYAMYC 100,000 unit/gram powder apply to VULVA UP TO 4 TIMES EACH DAY FOR ITCHING 2 Active pantoprazole (PROTONIX) 40 mg EC tabletIndication s:Gastroesophage al reflux disease without esophagitis take 1 tablet by mouth once daily 30 Tablet 5 3 Active Active Problems Problem Noted Date Diagnosed Date Problem with bladder 12/02/2021 Heart burn 12/02/2021 Epigastric pain 12/02/2021 E-coli UTI 12/02/2021 Assessment & Plan (12/02/2021 4:42 PM PDT): Presents today for E. coli UTI follow-up. Started on cephalexin 500 mg twice daily 2 days ago with improvement in dysuria, pressure symptoms. Obtain urine today for sensitivities. Advised patient we will contact her if antibiotic needs to be changed. RTC if no improvement or worsening of symptoms. Pap smear for cervical cancer screening 07/18/20 Encounter for gynecological examination without abnormal finding 07/18/2021 Assessment & Plan (07/18/2021 5:06 PM PST): 61-year-old female presents WWE/Pap. -Last Pap greater than 8 years ago. Does state abnormal Pap 15 years ago, HSIL. Colposcopy and Cryo therapy. Patient states has had normal Pap smears since that time. -Normal exam -UA dip normal -Advised patient will notify her of abnormal results. -Advised patient normal results will be released to [employer] portal. -Discussed with patient potential of repeating Pap smear in 3 years given past history of HSIL Escobedo's esophagus without dysplasia 07/16/2021 Assessment & Plan (07/16/2021 10:53 AM PST): Stable Only take pantoprazole as needed Pt states she had EGD by Dr. Sparks in the past. Was instructed to repeat EGD but unsure when. Unable to find notes from GI. Instructed pt to call Dr. Sparks and find out when is she supposed to get another EGD. Lose weight (if you are overweight) Raise the head of your bed by 6 to 8 inches - You can do this by putting blocks of wood or rubber under 2 legs of the bed or a foam wedge under the mattress. Avoid foods that make your symptoms worse - For some people these include coffee, chocolate, alcohol, peppermint, and fatty foods. Stop smoking, if you smoke Avoid late meals - Lying down with a full stomach can make reflux worse. Try to plan meals for at least 2 to 3 hours before bedtime. Avoid tight clothing - Some people feel better if they wear comfortable clothing that does not squeeze the stomach area. Acute pain of right shoulder 07/16/2021 Assessment & Plan (07/16/2021 10:21 AM PST): Start gentle stretching, warm compress, and massage If no improvement after 4-6 weeks, will do reevaluation BMI 35.0-35.9,adult 07/16/2021 Assessment & Plan (07/16/2021 10:53 AM PST): Lose 5-10% of current weight Esophageal dysmotility 07/14/2019 Chronic depression 07/13/2019 Gastroesophageal reflux disease 07/13/2019 Heart murmur 07/13/2019 Hiatal hernia 07/13/2019 Hyperlipidemia 07/13/2019 Mild intermittent asthma 07/13/2019 Retrosternal pain 07/13/2019 Chronic hepatitis C (HCC-CMS) 07/13/2019 Assessment & Plan (07/16/2021 10:53 AM PST): Reviewed MR from Dr. Santos. Pt HCV resolved History of malignant neoplasm of cervix 09/05/19 89 Resolved Problems Problem Noted Date Diagnosed Date Resolved Date Exposure to severe acute res piratory syndrome coronavirus 2 (SARS-CoV-2) 10/23/2020 07/16/2021 Social History Tobacco Use Types Packs/Day Years Used Date Smoking Tobacco: Former Cigarettes Q uit: 2017 Smokeless Tobacco: Never Tobacco Cessation:Counseling Given: Yes Alcohol Use Standard Drinks/Week Comments Not Currently 0 (1 standard drink = 0.6 oz pur e alcohol) Social Connections Answer Date Recorded Connectedness 0 05/27/2024 Financial Resource Strain Answer Date R ecorded Financial Resource Strain 0 2018 Stress Answer Date Recorded Stress 0 06/13/2019 Physical Activity Answer Date Recorded Physical Activity 0 06/13/2019 Food Insecurity Answer Date Recorded Food 0 06/01/2024 Transportation Needs Answer Date Record ed Transportation 0 06/13/2019 Housing Stability Answer Date Recorded Housing 0 06/13/2019 Safety and Environment Answer Date Karlos rded Safety 0 06/13/2019 Utilities Answer Date Recorded Utilities 0 06/13/2019 Employment Answer Date Recorded Stress 0 05/27/2024 Comments No Sex and Gender Information Value Date Recorded Sex Assigned at Female 07/16/2021 10:46 AM PST Legal Sex Female 1:49 PM PDT Gender Identity Female 04/23/2021 5:47 AM PDT Sexual Orientation Straight 04/23/2021 5: 47 AM PDT Last Filed Vital Signs Vital Sign Reading Time Taken Comments Blood Pressure 124/68 01/29/2023 9:38 AM PDT Pulse 80 01/29/2023 9:38 AM PDT Temperature 36.6 ??C (97.9 ??F) 01/29/2023 9:38 AM PD T Respiratory Rate 16 12/02/2021 4:00 PM PDT Oxygen Saturation 98% 01/29/2023 9:38 AM PDT Inhaled Oxygen Concentration - - Weight 79.8 kg (176 lb) 01/29/2023 9:38 AM PDT Height 152.4 cm (5') 01/29/2023 9:38 AM PDT Body Mass Index 34.37 01/29/2023 9:38 AM PDT Plan of Treatment Health Maintenance Due Date Last Done Comments Tobacco Screening 1959 Imm-DTaP/Tdap/Td (1 - Tdap) 1978 Imm-Hepatitis A (1 of 2 - Ri sk 2-dose series) 1978 Imm-Pneumococcal 65+ (1 of 2 - PCV) 1978 Breast Cancer Screening (Mammogram) 1999 CT Colonography 2004 Colonoscopy 2004 Flexible Sigmoidoscopy 2004 Imm-Zoster, Recombinant (1 of 2) 2009 Imm-Hepatitis B (1 of 3 - Ri sk 3-dose series) 2019 Colorectal Cancer Screening 02/18/2023 Depression Monitoring 05/01/2023 01/29/2023 Hypertension Screening (#1) 01/29/2024 FIT/gFOBT 02/18/2024 02/17/2023, 04/29/2022 [id number] ( - season) 2024 Imm-Influenza (#1) 2024 Bone Density Screening 2024 Falls Prevention 2024 Alcohol and Drug Screen 09/06/2024 12/02/2021 Diabetes Screening 11/17/2024 11/17/2021, 0 11/17/2021, 07/24/2019, Additional history exists Fecal DNA 02/17/2026 02/17/2023, 02/04, 02/17/2023 Lipid Screening 11/17/2026 11/17/2021 HIV Screening Completed 11/17/2021 Procedures Procedure Name Priority Date/Time Associated Diagnosis Comments COLOGUARD Routine 02/17/2023 1:00 AM PDT Colon cancer screening HIV 1/2 AG & AB W/RFLX (4TH GEN) Routine 11/17/2021 8:46 AM PDT Encounter for screening for HIV HEMOGLOBIN GLYCOSYLATED A1C Routine 11/17/2021 8:43 AM PDT Encounter for general adult medical examination with abnormal findings LIPID PANEL Routine 11/17/2021 8:43 AM PDT Mixed hyperlipidemia from Last 3 Months or Most Recently Relevant to Health Maintenance Results * (ABNORMAL) COLOGUARD (02/17/2023 1:00 AM PDT) COLOGUARD RESULT REPORTABLE Positive( A) Negative [employer] (CLIA #:[id number]) Comment: POSITIVE TEST RESULT. A positive Cologuard result should be followed with a colonoscopy or visual examination of the colon. The normal value (reference range) for this assay is negative. TEST DESCRIPTION: Composite algorithmic analysis of stool DNA-biomarkers with hemoglobin immunoassay. ?? Quantitative values of individual biomarkers are not reportable and are not associated with individual biomarker result reference ranges. Cologuard is intended for colorectal cancer screening of adults of either sex, 45 years or older, who are at average-risk for colorectal cancer (CRC). Cologuard has been approved for use by the U.S. FDA. The performance of Cologuard was established in a cross sectional study of average- risk adults aged 50-84. Cologuard performance in patients ages 45 to 49 years was estimated by sub-group analysis of near-age groups. Colonoscopies performed for a positive result may find as the most clinically significant lesion: colorectal cancer [4.0%], advanced adenoma (including sessile serrated polyps greater than or equal to 1cm diameter) [20%] or non- advanced adenoma [31%]; or no colorectal neoplasia [45%]. These estimates are derived from a prospective cross-sectional screening study of 10,000 individuals at average risk for colorectal cancer who were screened with both Cologuard and colonoscopy. (Lakeshia Brandt al, N Engl J Med 2014;370(14):4465-6420.) Cologuard may produce a false negative or false positive result (no colorectal cancer or precancerous polyp present at colonoscopy follow up). A negative Cologuard test result does not guarantee the absence of CRC or advanced adenoma (pre-cancer). The current Cologuard screening interval is every 3 years. ([place] Cancer Society and U.S. Multi-Society Task Force). Cologuard performance data in a 10,000 patient pivotal study using colonoscopy as the reference method can be accessed at the following location: www.[employer]com/results. Additional description of the Cologuard test process, warnings and precautions can be found at www.cologuard.com. Stool Stool specimen / Unknown 02/17/2023 1:00 AM PDT 02/18/2023 3:18 PM PDT Sami Rios DO LAB - NO BLOOD DRAW Final Resu lt [employer] [address] [place] [address], [facility] [address] CLIA [id number] [place] [address], [employer] (CLIA #:[id number]) [address] [place] [address] * HIV 1/2 AG & AB W/RFLX (4TH GEN) (11/17/2021 8:46 AM PDT) HIV AG/AB, 4TH GEN NON-REACTI VE NON-REACT CONCHA 11/18/2021 1:13 PM PDT [employer] [facility] Blood Blood / Unknown 11/17/2021 8 :46 AM PDT Narrative [facility] - 11/18/2021 1:33 PM PDT STOOL KIT GAVE TO PT FASTING:YES COLLECTION KIT GIVEN TO PATIENT. PATIENT ADVISED HIV-1 antigen and HIV-1/HIV-2 antibodies were not detected. There is no laboratory evidence of HIV infection. . PLEASE NOTE: This information has been disclosed to you from records whose confidentiality may be protected by state law. ??If your state requires such protection, then the state law prohibits you from making any further disclosure of the information without the specific written consent of the person to whom it pertains, or as otherwise permitted by law. A general authorization for the release of medical or other information is NOT sufficient for this purpose. . For additional information please refer to http://education.[employer]/faq/RXE759 (This link is being provided for informational/ educational purposes only.) . . The performance of this assay has not been clinically validated in patients less than 2 years old. . Manuela Alarcon NP LAB - BLOOD DRAW Final Result Performing Organization Address City/State/[facility] Co de Phone Number [employer] [facility] [address] [place] [address], [employer] [facility] [address] [place] [address] * HEMOGLOBIN, GLYCOSYLATED (A1C) (11/17/2021 8:43 AM PDT) HEMOGLOBIN A1C 5.5 <5.7 % of total Hgb 11/18/2021 5:03 AM PDT [employer] [facility] Blood Blood / Unknown 11/17/2021 8 :43 AM PDT Narrative [employer] [facility] - 11/20/2021 10:18 AM PDT FASTING:YES For the purpose of screening for the presence of diabetes: . <5.7% ? Consistent with the absence of diabetes 5.7-6.4% ?Consistent with increased risk for diabetes ?(prediabetes) > or =6.5% ??Consistent with diabetes . This assay result is consistent with a decreased risk of diabetes. . Currently, no consensus exists regarding use of hemoglobin A1c for diagnosis of diabetes in children. . According to [place] Diabetes Association (ADA) guidelines, hemoglobin A1c <7.0% represents optimal control in non- diabetic patients. Different metrics may apply to specific patient populations. Standards of Medical Care in Diabetes(ADA). . Manuela Alarcon NP LAB - BLOOD DRAW Edited Resul t - Final [facility] [address] [facility] [place] [address], [facility] [address] [place] [address] * (ABNORMAL) LIPID PANEL (11/17/2021 8:43 AM PDT) [facility] CHOLESTEROL, TOTAL 237(H) <200 mg/dL 11/18/2021 3:13 AM PDT [facility] HDL CHOLESTEROL 67 > OR = 50 mg/dL 11/18/2021 3:13 AM PDT [facility] TRIGLYCERIDES 197(H) <150 mg/dL 11/18/2021 3:13 AM PDT [facility] LDL-CHOLESTEROL 136(H) mg/dL (calc) 11/18/2021 3:13 AM PDT [facility] CHOL/HDLC RATIO 3.5 <5.0 (calc) 11/18/2021 3:13 AM PDT [facility] NON-HDL CHOLESTEROL 170(H) <130 mg/dL (calc) 11/18/2021 3:13 AM PDT [facility] Blood Blood / Unknown 11/17/2021 8 :43 AM PDT Narrative [facility] - 11/20/2021 10:18 AM PDT FASTING:YES Reference range: <100 . Desirable range <100 mg/dL for primary prevention; ?? <70 mg/dL for patients with CHD or diabetic patients with > or = 2 CHD risk factors. . LDL-C is now calculated using the Pancho-Joann calculation, which is a validated novel method providing better accuracy than the Friedewald equation in the estimation of LDL-C. Pancho SS et al. YEIMY. 2013;310(19): 4805-3838 (http://education.[employer]/faq/EQP593) For patients with diabetes plus 1 major ASCVD risk factor, treating to a non-HDL-C goal of <100 mg/dL (LDL-C of <70 mg/dL) is considered a therapeutic option. us Manuela Alarcon NP LAB - BLOOD DRAW Edited Resul t - Final [facility] [address] [facility] [place] [address], [facility] [address] [place] [address] from Last 3 Months or Most Recently Relevant to Health Maintenance Insurance [employer] Care Teams Special Officer Automat Relationship Specialty Start Date End Date Chris Carias PA [address] [place] [address] PCP - General FAMILY MEDICINE, [place] 10/29/22
--- OUTSIDE RECORDS SUMMARY | 2024-10-30 16:26 | XMS_ITS | Clinical Summary ---
Author Organization [facility] Address [address] [place] [id number] Phone Care Team Providers Care Framing Inspector Name Role Phone Mayo Pablo NP Primary Care Provider [phone]- [phone] Allergies Active Allergy Reactions Criticality Noted Date [...] EST - 10/08/2024 11:29 PM EST Emergency [facility] Emergency [address] [place] [address] Hao Bui MD Enteritis (Primary [...] and culture (10/08/2024 9:41 PM EST) Specific [place] Urine 1.030 1.003 - 1.030 LAB URINALYSIS - AUTOMATED METHOD 10/08/2024 10:13 PM [facility] pH, Urine 5.5 5.0 - 8.0 pH LAB URINALYSIS - AUTOMATED METHOD 10/08/2024 10:13 PM [facility] Leukocytes, Urine Negative Negative LAB URINALYSIS - AUTOMATED METHOD 10/08/2024 10:13 PM [facility] Nitrite, Urine Negative Negative LAB URINALYSIS - AUTOMATED METHOD 10/08/2024 10:13 PM [facility] Protein, Urine 30(A) <=Trace mg/dL LAB URINALYSIS - AUTOMATED METHOD 10/08/2024 10:13 PM [facility] Glucose, Urine Negative Negative mg/dL LAB URINALYSIS - AUTOMATED METHOD 10/08/2024 10:13 PM [facility] Ketones, Urine Negative Negative mg/dL LAB URINALYSIS - AUTOMATED METHOD 10/08/2024 10:13 PM [facility] Urobilinogen, Urine 0.2 0.2 - 1.0 mg/dL LAB URINALYSIS - AUTOMATED METHOD 10/08/2024 10:13 PM [facility] Bilirubin, Urine Negative Negative LAB URINALYSIS - AUTOMATED METHOD 10/08/2024 10:13 PM [facility] Blood, Urine Negative Negative LAB URINALYSIS - AUTOMATED METHOD 10/08/2024 10:13 PM [facility] RBC, Urine 2.4 0 - 4 /HPF LAB URINALYSIS - AUTOMATED METHOD 10/08/2024 10:13 PM [facility] WBC, Urine 4.1(H) 0 - 4 /HPF LAB URINALYSIS - AUTOMATED METHOD 10/08/2024 10:13 PM [facility] Squamous Epithelial, Urine 72(H) 0 - 60 /LPF LAB URINALYSIS - AUTOMATED METHOD 10/08/2024 10:13 PM [facility] Bacteria, Urine Negative Negative /HPF LAB URINALYSIS - AUTOMATED METHOD 10/08/2024 10:13 PM [facility] Hyaline Casts, Urine 0.8 0 - 3 /LPF LAB URINALYSIS - AUTOMATED METHOD 10/08/2024 10:13 PM [facility] Urine Urine specimen obtained by clean catch procedure / Unknown Non-blood Collection / Unknown 10/08/2024 9:41 PM EST 10/08/2024 9:55 PM EST Vera WATSON LAB URINE ORDERABLES F inal Result Performing Organization Address City/State/[facility] Co de Phone Number [facility] [address] [place] [address], [place] [phone] * [place] urine culture tube (10/08/2024 9:41 PM EST) Extra Tube Hold for add-ons. 10/08/2024 11:01 PM EST [facility] Comment:Auto resulted. Urine Urine specimen obtained by clean catch procedure / Unknown Non-blood Collection / Unknown 10/08/2024 9:41 PM EST 10/08/2024 9:55 PM EST Vera WATSON LAB URINE ORDERABLES F inal Result Performing Organization Address [facility]/ZIP Co de Phone Number [facility] [address] [place] [address], * (ABNORMAL) CBC auto differential (10/08/2024 8:30 PM EST) WBC 12.4(H) 4.8 - 10.8 K/mcL LAB HEMETOLOGY METHOD 10/08/2024 8:55 PM [facility] RBC 5.30(H) 3.80 - 4.80 M/mcL LAB HEMETOLOGY METHOD 10/08/2024 8:55 PM [facility] Hemoglobin 13.7 11.5 - 16.0 g/dL LAB HEMETOLOGY METHOD 10/08/2024 8:55 PM [facility] Hematocrit 43.5 35.0 - 47.0 % LAB HEMETOLOGY METHOD 10/08/2024 8:55 PM [facility] MCV 82.5 79.0 - 98.0 FL LAB HEMETOLOGY METHOD 10/08/2024 8:55 PM [facility] MCH 26.0(L) 27.0 - 32.0 pcg LAB HEMETOLOGY METHOD 10/08/2024 8:55 PM [facility] MCHC 31.5(L) 32.0 - 37.0 g/dL LAB HEMETOLOGY METHOD 10/08/2024 8:55 PM [facility] RDW 17.2(H) 11.0 - 15.0 % LAB HEMETOLOGY METHOD 10/08/2024 8:55 PM [facility] Platelets 529(H) 130 - 400 K/mcL LAB HEMETOLOGY METHOD 10/08/2024 8:55 PM [facility] MPV 10.9 7.0 - 11.0 FL LAB HEMETOLOGY METHOD 10/08/2024 8:55 PM [facility] NRBC 0.0 <1.0 % LAB HEMETOLOGY METHOD 10/08/2024 8:55 PM [facility] NRBC Absolute 0.00 <0.10 K/mcL LAB HEMETOLOGY METHOD 10/08/2024 8:55 PM [facility] Neutrophils Relative 91.1 % LAB HEMETOLOGY METHOD 10/08/2024 8:55 PM [facility] Lymphocytes Relative 3.9 % LAB HEMETOLOGY METHOD 10/08/2024 8:55 PM [facility] Monocytes Relative 4.4 % LAB HEMETOLOGY METHOD 10/08/2024 8:55 PM [facility] Eosinophils Relative 0.2 % LAB HEMETOLOGY METHOD 10/08/2024 8:55 PM [facility] Basophils Relative 0.1 % LAB HEMETOLOGY METHOD 10/08/2024 8:55 PM [facility] Immature Granulocytes Relative 0.3 % LAB HEMETOLOGY METHOD 10/08/2024 8:55 PM [facility] Neutrophils Absolute 11.32(H) 1.50 - 7.00 K/mcL LAB HEMETOLOGY METHOD 10/08/2024 8:55 PM EST [facility] Lymphocytes Absolute 0.48(L) 1.00 - 5.00 K/[facility] LAB HEMETOLOGY METHOD 10/08/2024 8:55 PM EST [facility] Monocytes Absolute 0.55 0.20 - 1.00 K/[facility] LAB HEMETOLOGY METHOD 10/08/2024 8:55 PM EST [facility] Eosinophils Absolute 0.03 0.00 - 0.50 K/[facility] LAB HEMETOLOGY METHOD 10/08/2024 8:55 PM EST [facility] Basophils Absolute 0.01 0.00 - 0.20 K/[facility] LAB HEMETOLOGY METHOD 10/08/2024 8:55 PM EST [facility] Immature Granulocytes Absolute 0.04(H) 0.00 - 0.03 K/[facility] LAB HEMETOLOGY METHOD 10/08/2024 8:55 PM EST [facility] Blood Venous blood specimen / Unknown Venipuncture / Unknown 10/08/2024 8:30 PM EST 10/08/2024 8:49 PM EST Vera WATSON LAB BLOOD ORDERABLES F inal Result Performing Organization Address City/[facility] Co de Phone Number [facility] [address] [place] [address], * Lipase (10/08/2024 8:30 PM EST) Lipase 22 13 - 75 unit/L LAB CHEMISTRY METHOD 10/08/2024 9:20 PM EST [facility] Blood Venous blood specimen / Unknown Venipuncture / Unknown 10/08/2024 8:30 PM EST 10/08/2024 8:49 PM EST Vera [employer]Denys WATSON LAB BLOOD ORDERABLES F inal Result [facility] [address] [place] [address], [place] [phone] * (ABNORMAL) Comprehensive Metabolic Panel (CMP) (10/08/2024 8:30 PM EST) Sodium 137 133 - 145 mmol/L LAB CHEMISTRY METHOD 10/08/2024 9:20 PM EST [facility] Potassium 3.9 3.5 - 5.5 mmol/L LAB CHEMISTRY METHOD 10/08/2024 9:20 PM [facility] Chloride 108 96 - 110 mmol/L LAB CHEMISTRY METHOD 10/08/2024 9:20 PM [facility] CO2 23 21 - 32 mmol/L LAB CHEMISTRY METHOD 10/08/2024 9:20 PM [facility] Anion Gap 6 3 - 11 LAB CHEMISTRY METHOD 10/08/2024 9:20 PM [facility] Glucose 107(H) 70 - 100 mg/dL LAB CHEMISTRY METHOD 10/08/2024 9:20 PM [facility] BUN 21 5 - 25 mg/dL LAB CHEMISTRY METHOD 10/08/2024 9:20 PM [facility] Creatinine 0.75 0.50 - 1.10 mg/dL LAB CHEMISTRY METHOD 10/08/2024 9:20 PM [facility] eGFR 88 >=60 mL/min/1. 73m2 LAB CHEMISTRY METHOD 10/08/2024 9:20 PM [facility] Comment:Calculation based on the??Chronic Kidney Disease Epidemiology Collaboration (CKD-EPI) equation refit??without adjustment for race. BUN/Creatinine Ratio 28.0 LAB CHEMISTRY METHOD 10/08/2024 9:20 PM [facility] Calcium 9.2 8.5 - 10.5 mg/dL LAB CHEMISTRY METHOD 10/08/2024 9:20 PM [facility] AST (SGOT) 19 10 - 42 unit/L LAB CHEMISTRY METHOD 10/08/2024 9:20 PM [facility] ALT (SGPT) 20 10 - 60 unit/L LAB CHEMISTRY METHOD 10/08/2024 9:20 PM [facility] Alkaline Phosphatase 98 42 - 121 unit/L LAB CHEMISTRY METHOD 10/08/2024 9:20 PM [facility] Total Protein 6.9 6.0 - 8.0 g/dL LAB CHEMISTRY METHOD 10/08/2024 9:20 PM EST [facility] Albumin 3.6 3.2 - 5.0 g/dL LAB CHEMISTRY METHOD 10/08/2024 9:20 PM [facility] Total Bilirubin 0.4 0.0 - 1.4 mg/dL LAB CHEMISTRY METHOD 10/08/2024 9:20 PM [facility] Blood Venous blood specimen / Unknown Venipuncture / Unknown 10/08/2024 8:30 PM EST 10/08/2024 8:49 PM EST Vera WATSON LAB BLOOD ORDERABLES F inal Result [facility] [address] [place] [address], * XR Chest 2 Views (10/08/2024 6:06 [...] Signed Date: 10/09/2024 08:31 ET Workstation ID: [id number] Transcribed By: Self Edit Transcribed Date: 10/09/2024 [...] Signed Date: 10/09/2024 08:31 ET Workstation ID: [id number] Transcribed By: Self Edit Transcribed Date: 10/09/2024 08:31 ET Hao Bui MD IMG XR PROCEDURES Final Result * Respiratory virus panel molecular study (10/08/2024 5:58 PM EST) Adenovirus Detection by PCR Not Detected Not Detected LAB MICROBIOLOGY METHOD 10/08/2024 7:09 PM [facility] Influenza A PCR Not Detected Not Detected LAB MICROBIOLOGY METHOD 10/08/2024 7:09 PM [facility] Influenza B PCR Not Detected Not Detected LAB MICROBIOLOGY METHOD 10/08/2024 7:09 PM [facility] Coronavirus 229E Not Detected Not Detected LAB MICROBIOLOGY METHOD 10/08/2024 7:09 PM [facility] Coronavirus HKU1 Not Detected Not Detected LAB MICROBIOLOGY METHOD 10/08/2024 7:09 PM [facility] Coronavirus OC43 Not Detected Not Detected LAB MICROBIOLOGY METHOD 10/08/2024 7:09 PM [facility] Coronavirus NL63 Not Detected Not Detected LAB MICROBIOLOGY METHOD 10/08/2024 7:09 PM [facility] Parainfluenza Virus 1 Not Detected Not Detected LAB MICROBIOLOGY METHOD 10/08/2024 7:09 PM [facility] Parainfluenza Virus 2 Not Detected Not Detected LAB MICROBIOLOGY METHOD 10/08/2024 7:09 PM [facility] Parainfluenza Virus 3 Not Detected Not Detected LAB MICROBIOLOGY METHOD 10/08/2024 7:09 PM [facility] Parainfluenza Virus 4 Not Detected Not Detected LAB MICROBIOLOGY METHOD 10/08/2024 7:09 PM [facility] RSV PCR Not Detected Not Detected LAB MICROBIOLOGY METHOD 10/08/2024 7:09 PM [facility] Human Metapneumovirus A and B Not Detected Not Detected LAB MICROBIOLOGY METHOD 10/08/2024 7:09 PM [facility] Rhinovirus/Entero virus Not Detected Not Detected LAB MICROBIOLOGY METHOD 10/08/2024 7:09 PM [facility] Bordetella pertussis Not Detected Not Detected LAB MICROBIOLOGY METHOD 10/08/2024 7:09 PM [facility] Bordetella parapertussis Not Detected Not Detected LAB MICROBIOLOGY METHOD 10/08/2024 7:09 PM [facility] Mycoplasma pneumo by PCR Not Detected Not Detected LAB MICROBIOLOGY METHOD 10/08/2024 7:09 PM [facility] Chlamydia pneumoniae Not Detected Not Detected LAB MICROBIOLOGY METHOD 10/08/2024 7:09 PM [facility] SARS COV-2 Not Detected Not Detected LAB MICROBIOLOGY METHOD 10/08/2024 7:09 PM [facility] Swab Both anterior nares / Unknown Non-blood Collection / Unknown 10/08/2024 5:58 PM EST 10/08/2024 6:05 PM EST Narrative [facility] - 10/08/2024 7:09 PM EST Testing was performed using the Patient Communicator Respiratory Pathogen PCR Assay. All results must [...] ORDJeny DESAI Final Result Performing Organization Address City/[facility]/ZIP Co de Phone Number [facility] [address] [place] [address], [place] [phone] * Rapid strep A screen (10/08/2024 5:58 PM EST) Strep A Ag Negative Negative, Invalid 10/08/2024 6:18 PM EST [facility] Comment:Refer to Throat Cult ure. Swab Structure of anterior portion of neck / Unknown Non-blood Collection / Unknown 10/08/2024 5:58 PM EST 10/08/2024 6:05 PM EST us Hao Bui MD LAB MICROBIOLOGY - GENERAL ORDE GISELLE Final Result [facility] [address] [place] [address], [place] [phone] * Culture throat (10/08/2024 5:58 PM EST) Culture, Throat No pathogens isolated. 10/10/2024 11:52 AM EST [facility] Swab Structure of anterior portion of neck / Unknown Non-blood Collection / Unknown 10/08/2024 5:58 PM EST 10/08/2024 6:05 PM EST us Hao Bui MD LAB MICROBIOLOGY - GENERAL ORDE GISELLE Final Result [facility] [address] [place] [address], from Last 3 Months Insurance [place] Care Teams Framing Inspector Relationship Specialty Start Date End Date Mayo Pablo NP [address] [place] [address] PCP - General Family Medicine 10/08/24
== END 2024-10-30 15:14 | disposition home or self-care (01) ==
PROVIDERS: PCP Physician Assistant Medical; Visit Provider Physician Assistant Medical
DX: E78.00 Pure hypercholesterolemia, unspecified (principal); R79.89 Other specified abnormal findings of blood chemistry; I83.11 Varicose veins of right lower extremity with inflammation; I83.12 Varicose veins of left lower extremity with inflammation; R07.9 Chest pain, unspecified; K22.70 Barrett's esophagus without dysplasia; R19.5 Other fecal abnormalities

== ENCOUNTER → 2024-10-30 14:17 | Outpatient (BNVA) | payer MEDICARE, MEDICAID, SELFPAY | PROVIDERS: PCP Physician Assistant Medical; Visit Provider Physician Assistant Medical | DX: E78.00 Pure hypercholesterolemia, unspecified (principal); R79.89 Other specified abnormal findings of blood chemistry; I83.11 Varicose veins of right lower extremity with inflammation; I83.12 Varicose veins of left lower extremity with inflammation; R07.9 Chest pain, unspecified; K22.70 Barrett's esophagus without dysplasia; R19.5 Other fecal abnormalities; Z79.899 Other long term (current) drug therapy | CPT/HCPCS: 96127; 99212 ==

== ENCOUNTER 2024-11-09 08:32 | Outpatient (REF) | payer MEDICARE, MEDICAID, SELFPAY ==
--- NOTE | ~2024-11-09 | FL_ITS ---
EXAMINATION: XR BARIUM SWALLOW CLINICAL INFORMATION: Gastroesophageal reflux disease without esophagitis. COMPARISON: None available. TECHNIQUE: Routine barium swallow was performed in upright and position. FINDINGS: Following oral administration of thick barium in upright view there is normal propagation bolus from the oral cavity through the pharynx and esophagus without any evidence of obstruction, narrowing or stricture. On placing patient in prone lying and administration of thick barium there is a large gastroesophageal reflux with a small sliding hiatal hernia. The mucosal pattern of stomach and the duodenal bulb is normal. FLUOROSCOPY TIME: 1.07 minutes DOSE AREA PRODUCT: 822. uGy-m2 (microgray-meter squared) FL/FL barium swallow IMPRESSION: Unremarkable examination. Electronically signed by: Blake Adams MD 11/09/2024 11:15 AM NIKOLE
--- OUTSIDE RECORDS SUMMARY | 2024-11-09 09:03 | XMS_ITS | Clinical Summary ---
Author Organization [facility] Address [address] [place] [address] Phone Care Team Providers Care Planning Consultant Name Role Phone Mayo Pablo NP Primary Care Provider [phone] Allergies Active Allergy Reactions Criticality Noted Date Comments Azithromycin GI intolerance 10/08/2024 Medications ondansetron ODT (ZOFRAN-ODT) 4 mg disintegrating tablet Let 1 tablet dissolve under the tongue three times daily as needed for nausea or vomiting. 10 tablet 5 10/15/19 25 loperamide (IMODIUM) 2 mg capsule Take 1 capsule (2 mg total) by mouth 4 (four) times a day if needed for diarrhea for up to 3 days. 12 capsule 5 10/11/19 25 famotidine (PEPCID) 20 mg tablet Take 1 tablet (20 mg total) by mouth 2 (two) times a day for 15 days. 30 tablet 5 10/23/19 25 benzocaine-menthoL (Cepacol Sore Throat, ronni-men,) 15-2.[address] 1 lozenge into mouth between cheek and gum 3 (three) times a day for 14 days. 28 lozenge 5 10/22/19 25 amoxicillin (AMOXIL) 500 mg capsule Take 1 capsule (500 mg total) by mouth every 12 (twelve) hours for 10 days. 20 each 5 10/18/19 25 Encounters Date Type Department Care Team Description 10/08/2024 6:56 PM EST - 10/08/2024 11:29 PM EST Emergency [facility] Emergency [address] [place] [address] Hao Bui MD Enteritis (Primary [...] and culture (10/08/2024 9:41 PM EST) Specific [place] Urine 1.030 1.003 - 1.030 LAB URINALYSIS - AUTOMATED METHOD 10/08/2024 10:13 PM [facility] pH, Urine 5.5 5.0 - 8.0 pH LAB URINALYSIS - AUTOMATED METHOD 10/08/2024 10:13 PM [facility] Leukocytes, Urine Negative Negative LAB URINALYSIS - AUTOMATED METHOD 10/08/2024 10:13 PM [facility] Nitrite, Urine Negative Negative LAB URINALYSIS - AUTOMATED METHOD 10/08/2024 10:13 PM [facility] Protein, Urine 30(A) <=Trace mg/dL LAB URINALYSIS - AUTOMATED METHOD 10/08/2024 10:13 PM [facility] Glucose, Urine Negative Negative mg/dL LAB URINALYSIS - AUTOMATED METHOD 10/08/2024 10:13 PM [facility] Ketones, Urine Negative Negative mg/dL LAB URINALYSIS - AUTOMATED METHOD 10/08/2024 10:13 PM [facility] Urobilinogen, Urine 0.2 0.2 - 1.0 mg/dL LAB URINALYSIS - AUTOMATED METHOD 10/08/2024 10:13 PM [facility] Bilirubin, Urine Negative Negative LAB URINALYSIS - AUTOMATED METHOD 10/08/2024 10:13 PM [facility] Blood, Urine Negative Negative LAB URINALYSIS - AUTOMATED METHOD 10/08/2024 10:13 PM [facility] RBC, Urine 2.4 0 - 4 /HPF LAB URINALYSIS - AUTOMATED METHOD 10/08/2024 10:13 PM [facility] WBC, Urine 4.1(H) 0 - 4 /HPF LAB URINALYSIS - AUTOMATED METHOD 10/08/2024 10:13 PM [facility] Squamous Epithelial, Urine 72(H) 0 - 60 /LPF LAB URINALYSIS - AUTOMATED METHOD 10/08/2024 10:13 PM [facility] Bacteria, Urine Negative Negative /HPF LAB URINALYSIS - AUTOMATED METHOD 10/08/2024 10:13 PM [facility] Hyaline Casts, Urine 0.8 0 - 3 /LPF LAB URINALYSIS - AUTOMATED METHOD 10/08/2024 10:13 PM [facility] Urine Urine specimen obtained by clean catch procedure / Unknown Non-blood Collection / Unknown 10/08/2024 9:41 PM EST 10/08/2024 9:55 PM EST us Vera WATSON LAB URINE ORDERABLES F inal Result [facility] [address] [place] [address], * [place] urine culture tube (10/08/2024 9:41 PM EST) Extra Tube Hold for add-ons. 10/08/2024 11:01 PM EST [facility] Comment:Auto resulted. Urine Urine specimen obtained by clean catch procedure / Unknown Non-blood Collection / Unknown 10/08/2024 9:41 PM EST 10/08/2024 9:55 PM EST Vera WATSON LAB URINE ORDERABLES F inal Result [facility] [address] [place] [address], * (ABNORMAL) CBC auto differential (10/08/2024 8:30 PM EST) WBC 12.4(H) 4.8 - 10.8 K/mcL LAB HEMETOLOGY METHOD 10/08/2024 8:55 PM [facility] RBC 5.30(H) 3.80 - 4.80 M/mcL LAB HEMETOLOGY METHOD 10/08/2024 8:55 PM [facility] Hemoglobin 13.7 11.5 - 16.0 g/dL LAB HEMETOLOGY METHOD 10/08/2024 8:55 PM [facility] Hematocrit 43.5 35.0 - 47.0 % LAB HEMETOLOGY METHOD 10/08/2024 8:55 PM [facility] MCV 82.5 79.0 - 98.0 FL LAB HEMETOLOGY METHOD 10/08/2024 8:55 PM [facility] MCH 26.0(L) 27.0 - 32.0 pcg LAB HEMETOLOGY METHOD 10/08/2024 8:55 PM [facility] MCHC 31.5(L) 32.0 - 37.0 g/dL LAB HEMETOLOGY METHOD 10/08/2024 8:55 PM [facility] RDW 17.2(H) 11.0 - 15.0 % LAB HEMETOLOGY METHOD 10/08/2024 8:55 PM [facility] Platelets 529(H) 130 - 400 K/mcL LAB HEMETOLOGY METHOD 10/08/2024 8:55 PM [facility] MPV 10.9 7.0 - 11.0 FL LAB HEMETOLOGY METHOD 10/08/2024 8:55 PM [facility] NRBC 0.0 <1.0 % LAB HEMETOLOGY METHOD 10/08/2024 8:55 PM [facility] NRBC Absolute 0.00 <0.10 K/mcL LAB HEMETOLOGY METHOD 10/08/2024 8:55 PM [facility] Neutrophils Relative 91.1 % LAB HEMETOLOGY METHOD 10/08/2024 8:55 PM [facility] Lymphocytes Relative 3.9 % LAB HEMETOLOGY METHOD 10/08/2024 8:55 PM [facility] Monocytes Relative 4.4 % LAB HEMETOLOGY METHOD 10/08/2024 8:55 PM [facility] Eosinophils Relative 0.2 % LAB HEMETOLOGY METHOD 10/08/2024 8:55 PM [facility] Basophils Relative 0.1 % LAB HEMETOLOGY METHOD 10/08/2024 8:55 PM [facility] Immature Granulocytes Relative 0.3 % LAB HEMETOLOGY METHOD 10/08/2024 8:55 PM [facility] Neutrophils Absolute 11.32(H) 1.50 - 7.00 K/mcL LAB HEMETOLOGY METHOD 10/08/2024 8:55 PM [facility] Lymphocytes Absolute 0.48(L) 1.00 - 5.00 K/mcL LAB HEMETOLOGY METHOD 10/08/2024 8:55 PM EST [facility] Monocytes Absolute 0.55 0.20 - 1.00 K/[facility] LAB HEMETOLOGY METHOD 10/08/2024 8:55 PM EST [facility] Eosinophils Absolute 0.03 0.00 - 0.50 K/[facility] LAB HEMETOLOGY METHOD 10/08/2024 8:55 PM EST [facility] Basophils Absolute 0.01 0.00 - 0.20 K/[facility] LAB HEMETOLOGY METHOD 10/08/2024 8:55 PM EST [facility] Immature Granulocytes Absolute 0.04(H) 0.00 - 0.03 K/[facility] LAB HEMETOLOGY METHOD 10/08/2024 8:55 PM EST [facility] Blood Venous blood specimen / Unknown Venipuncture / Unknown 10/08/2024 8:30 PM EST 10/08/2024 8:49 PM EST [facility] [employer] PA LAB BLOOD ORDERABLES F inal Result Performing Organization Address City/[facility]/ZIP Co de Phone Number [facility] [address] [place] [address], [place] [phone] * Lipase (10/08/2024 8:30 PM EST) Lipase 22 13 - 75 unit/L LAB CHEMISTRY METHOD 10/08/2024 9:20 PM EST [facility] Blood Venous blood specimen / Unknown Venipuncture / Unknown 10/08/2024 8:30 PM EST 10/08/2024 8:49 PM EST [employer] [facility] LAB BLOOD ORDERABLES F inal Result Performing Organization Address City/[facility]/ZIP Co de Phone Number [facility] [address] [place] [address], [place] [phone] * (ABNORMAL) Comprehensive Metabolic Panel (CMP) (10/08/2024 8:30 PM EST) Sodium 137 133 - 145 mmol/L LAB CHEMISTRY METHOD 10/08/2024 9:20 PM [facility] Potassium 3.9 3.5 - 5.5 mmol/L LAB CHEMISTRY METHOD 10/08/2024 9:20 PM [facility] Chloride 108 96 - 110 mmol/L LAB CHEMISTRY METHOD 10/08/2024 9:20 PM [facility] CO2 23 21 - 32 mmol/L LAB CHEMISTRY METHOD 10/08/2024 9:20 PM [facility] Anion Gap 6 3 - 11 LAB CHEMISTRY METHOD 10/08/2024 9:20 PM [facility] Glucose 107(H) 70 - 100 mg/dL LAB CHEMISTRY METHOD 10/08/2024 9:20 PM [facility] BUN 21 5 - 25 mg/dL LAB CHEMISTRY METHOD 10/08/2024 9:20 PM [facility] Creatinine 0.75 0.50 - 1.10 mg/dL LAB CHEMISTRY METHOD 10/08/2024 9:20 PM [facility] eGFR 88 >=60 mL/min/1. 73m2 LAB CHEMISTRY METHOD 10/08/2024 9:20 PM [facility] Comment:Calculation based on the??Chronic Kidney Disease Epidemiology Collaboration (CKD-EPI) equation refit??without adjustment for race. BUN/Creatinine Ratio 28.0 LAB CHEMISTRY METHOD 10/08/2024 9:20 PM [facility] Calcium 9.2 8.5 - 10.5 mg/dL LAB CHEMISTRY METHOD 10/08/2024 9:20 PM [facility] AST (SGOT) 19 10 - 42 unit/L LAB CHEMISTRY METHOD 10/08/2024 9:20 PM [facility] ALT (SGPT) 20 10 - 60 unit/L LAB CHEMISTRY METHOD 10/08/2024 9:20 PM EST [facility] Alkaline Phosphatase 98 42 - 121 unit/L LAB CHEMISTRY METHOD 10/08/2024 9:20 PM EST [facility] Total Protein 6.9 6.0 - 8.0 g/dL LAB CHEMISTRY METHOD 10/08/2024 9:20 PM EST [facility] Albumin 3.6 3.2 - 5.0 g/dL LAB CHEMISTRY METHOD 10/08/2024 9:20 PM [facility] Total Bilirubin 0.4 0.0 - 1.4 mg/dL LAB CHEMISTRY METHOD 10/08/2024 9:20 PM [facility] Blood Venous blood specimen / Unknown Venipuncture / Unknown 10/08/2024 8:30 PM EST 10/08/2024 8:49 PM EST Vera WATSON LAB BLOOD ORDERABLES F inal Result [facility] [address] [place] [address], * XR Chest 2 Views (10/08/2024 6:06 [...] Signed Date: 10/09/2024 08:31 ET Workstation ID: [id number] Transcribed By: Self Edit Transcribed Date: 10/09/2024 [...] Signed Date: 10/09/2024 08:31 ET Workstation ID: [id number] Transcribed By: Self Edit Transcribed Date: 10/09/2024 08:31 ET Hao Bui MD IM XR PROCEDURES Final Result * Respiratory virus panel molecular study (10/08/2024 5:58 PM EST) Adenovirus Detection by PCR Not Detected Not Detected LAB MICROBIOLOGY METHOD 10/08/2024 7:09 PM [facility] Influenza A PCR Not Detected Not Detected LAB MICROBIOLOGY METHOD 10/08/2024 7:09 PM [facility] Influenza B PCR Not Detected Not Detected LAB MICROBIOLOGY METHOD 10/08/2024 7:09 PM [facility] Coronavirus 229E Not Detected Not Detected LAB MICROBIOLOGY METHOD 10/08/2024 7:09 PM [facility] Coronavirus HKU1 Not Detected Not Detected LAB MICROBIOLOGY METHOD 10/08/2024 7:09 PM [facility] Coronavirus OC43 Not Detected Not Detected LAB MICROBIOLOGY METHOD 10/08/2024 7:09 PM [facility] Coronavirus NL63 Not Detected Not Detected LAB MICROBIOLOGY METHOD 10/08/2024 7:09 PM [facility] Parainfluenza Virus 1 Not Detected Not Detected LAB MICROBIOLOGY METHOD 10/08/2024 7:09 PM [facility] Parainfluenza Virus 2 Not Detected Not Detected LAB MICROBIOLOGY METHOD 10/08/2024 7:09 PM [facility] Parainfluenza Virus 3 Not Detected Not Detected LAB MICROBIOLOGY METHOD 10/08/2024 7:09 PM [facility] Parainfluenza Virus 4 Not Detected Not Detected LAB MICROBIOLOGY METHOD 10/08/2024 7:09 PM [facility] RSV PCR Not Detected Not Detected LAB MICROBIOLOGY METHOD 10/08/2024 7:09 PM [facility] Human Metapneumovirus A and B Not Detected Not Detected LAB MICROBIOLOGY METHOD 10/08/2024 7:09 PM [facility] Rhinovirus/Entero virus Not Detected Not Detected LAB MICROBIOLOGY METHOD 10/08/2024 7:09 PM [facility] Bordetella pertussis Not Detected Not Detected LAB MICROBIOLOGY METHOD 10/08/2024 7:09 PM [facility] Bordetella parapertussis Not Detected Not Detected LAB MICROBIOLOGY METHOD 10/08/2024 7:09 PM [facility] Mycoplasma pneumo by PCR Not Detected Not Detected LAB MICROBIOLOGY METHOD 10/08/2024 7:09 PM [facility] Chlamydia pneumoniae Not Detected Not Detected LAB MICROBIOLOGY METHOD 10/08/2024 7:09 PM [facility] SARS COV-2 Not Detected Not Detected LAB MICROBIOLOGY METHOD 10/08/2024 7:09 PM [facility] Swab Both anterior nares / Unknown Non-blood Collection / Unknown 10/08/2024 5:58 PM EST 10/08/2024 6:05 PM EST [facility] - 10/08/2024 7:09 PM EST Testing was performed using the [employer] Respiratory Pathogen PCR Assay. All results must [...] ORDJeny DESAI Final Result Performing Organization Address [facility] de Phone Number [facility] [address] [place] [address], [place] [phone] * Rapid strep A screen (10/08/2024 5:58 PM EST) Pathologist [facility] Strep A Ag Negative Negative, Invalid 10/08/2024 6:18 PM EST [facility] Comment:Refer to Throat Cult ure. Swab Structure of anterior portion of neck / Unknown Non-blood Collection / Unknown 10/08/2024 5:58 PM EST 10/08/2024 6:05 PM EST Hao Bui MD LAB MICROBIOLOGY - [facility] ASYA DESAI Final Result Performing Organization Address [facility] de Phone Number [facility] [address] [place] [address], [place] [phone] * Culture throat (10/08/2024 5:58 PM EST) [facility] Culture, Throat No pathogens isolated. 10/10/2024 11:52 AM EST [facility] Swab Structure of anterior portion of neck / Unknown Non-blood Collection / Unknown 10/08/2024 5:58 PM EST 10/08/2024 6:05 PM EST us Hao Bui MD LAB MICROBIOLOGY - GENERAL ORDE RABBRUNILDA Final Result Performing Organization Address [facility] Co de Phone Number [facility] [address] [place] [address], [place] [phone] from Last [address] [place] [id number] [place] Care Teams Planning Consultant Relationship Specialty Start Date End Date Mayo Pablo NP [address] [place] [address] PCP - General Family Medicine 10/08/24
== END 2024-11-09 08:33 | disposition home or self-care (01) ==
LOC: HO.XRAY 08:32
PROVIDERS: PCP Physician Assistant Medical; Visit Provider Internal Medicine
DX: K21.9 Gastro-esophageal reflux disease without esophagitis (principal)
CPT/HCPCS: 74220

== ENCOUNTER → 2024-11-09 08:41 | Outpatient (BNV) | payer MEDICARE, MEDICAID, SELFPAY | PROVIDERS: PCP Physician Assistant Medical; Visit Provider Radiology Diagnostic Radiology | DX: K21.9 Gastro-esophageal reflux disease without esophagitis (principal) | CPT/HCPCS: 74221 ==

== ENCOUNTER 2024-11-14 11:22 | Day surgery (SDC) | payer MEDICARE, MEDICAID, SELFPAY ==
--- OUTSIDE RECORDS SUMMARY | 2024-11-09 12:18 | XMS_ITS | Clinical Summary ---
Author Organization [facility] Address [address] [place] [address] Care Team Providers Care Pressure Testing Technician Name Role Phone Chris Carias Primary Care Provider [phone] Source Comments PLEASE NOTE, if this patient [...] patient normal results will be released to [employer] portal. -Discussed with patient potential of repeating [...] Screening (#1) 01/29/2024 FIT/gFOBT 02/18/2024 02/17/2023, 04/29/2022 Epi-NZAKQ-30 ( - season) 2024 Imm-Influenza (#1) 2024 [...] PDT) COLOGUARD RESULT REPORTABLE Positive( A) Negative [facility] [employer] [facility] (CLIA #:[id number]) Comment: POSITIVE TEST RESULT. A positive Cologuard [...] (Lakeshia Brandt al, N Engl J Med 2014;370(14):0367-0651.) Cologuard may produce a false negative or false positive result (no colorectal cancer or precancerous polyp present at colonoscopy follow up). A negative Cologuard test result does not guarantee the absence of CRC or advanced adenoma (pre-cancer). The current Cologuard screening interval is every 3 years. ([place] Cancer Society and U.S. Multi-Society Task Force). Cologuard performance data in a 10,000 patient pivotal study using colonoscopy as the reference method can be accessed at the following location: www.[employer].com/results. Additional description of the Cologuard test process, warnings and precautions can be found at www.cologuard.com. Stool Stool specimen / Unknown 02/17/2023 1:00 AM PDT 02/18/2023 3:18 PM PDT Sami Rios DO LAB - NO BLOOD DRAW Final Resu lt [employer] [address] [place] [address], [facility] [address] CLIA [id number] [place] [address], [employer] [facility] (CLIA #:[id number]) [address] [place] [address] * HIV 1/2 AG & AB W/RFLX (4TH GEN) (11/17/2021 8:46 AM PDT) HIV AG/AB, 4TH GEN NON-REACTI VE NON-REACT CONCHA 11/18/2021 1:13 PM PDT [facility] Blood Blood / Unknown 11/17/2021 [...] . For additional information please refer to http://education.[employer]/faq/DIF017 (This link is being provided for informational/ educational purposes only.) . . The performance of this assay has not been clinically validated in patients less than 2 years old. . Manuela Alarcon NP LAB - BLOOD DRAW Final Result Performing Organization Address City/State/[facility] Co de Phone Number [employer] [facility] [address] [place] [address], [facility] [place] [address] [place] [address] * HEMOGLOBIN, GLYCOSYLATED (A1C) (11/17/2021 8:43 AM PDT) HEMOGLOBIN A1C 5.5 <5.7 % of total Hgb 11/18/2021 5:03 AM PDT [facility] [facility] [place] Blood Blood / Unknown 11/17/2021 8 :43 AM PDT Narrative [facility] - 11/20/2021 10:18 AM PDT [...] of diabetes in children. . According to [place] Diabetes Association (ADA) guidelines, hemoglobin A1c <7.0% represents optimal control in non- diabetic patients. Different metrics may apply to specific patient populations. Standards of Medical Care in Diabetes(ADA). . Manuela Alarcon NP LAB - BLOOD DRAW Edited Resul t - Final [facility] [address] [place] [address], [facility] [address] [place] [place] [address] * (ABNORMAL) LIPID PANEL (11/17/2021 8:43 AM PDT) [facility] CHOLESTEROL, TOTAL 237(H) <200 mg/dL 11/18/2021 3:13 [...] LDL-C. Pancho SS et al. YEIMY. 2013;310(19): 1376-7140 (http://education.[employer].Embotics/faq/ZMZ151) For patients with diabetes plus 1 major ASCVD risk factor, treating to a non-HDL-C goal of <100 mg/dL (LDL-C of <70 mg/dL) is considered a therapeutic option. us Manuela Alarcon NP LAB - BLOOD DRAW Edited Resul t - Final [facility] [place] [address] [facility] [place] [address], [facility] [place] [address] [place] [address] from Last 3 Months or Most Recently Relevant to Health Maintenance Insurance [employer] Care Teams Pressure Testing Technician Relationship Specialty Start Date End Date Chris Carias PA [address] [place] [address] PCP - General FAMILY MEDICINE, [place] 10/29/22
--- OUTSIDE RECORDS SUMMARY | 2024-11-09 12:18 | XMS_ITS | Clinical Summary ---
Author Organization [facility] Address [address] [place] [phone] Phone Care Team Providers Care Fish Liver Sorter Name Role Phone Mayo Pablo NP Primary Care Provider [phone] Allergies Active Allergy Reactions Criticality Noted Date [...] EST - 10/08/2024 11:29 PM EST Emergency [facility] Emergency [address] [place] [address] Hao Bui MD Enteritis (Primary [...] and culture (10/08/2024 9:41 PM EST) Specific [place] Urine 1.030 1.003 - 1.030 LAB URINALYSIS [...] [facility] LAB URINE ORDERABLES F inal Result [facility] [address] [place] [address], * [place] urine culture tube (10/08/2024 9:41 PM EST) Extra Tube Hold for add-ons. 10/08/2024 11:[address] [facility] Comment:Auto resulted. Urine Urine specimen obtained by clean catch procedure / Unknown Non-blood Collection / Unknown 10/08/2024 9:41 PM EST 10/08/2024 9:55 PM EST Vera [facility] URINE ORDERABLES F inal Result [facility] [address] [place] [address], * (ABNORMAL) CBC auto differential (10/08/2024 8:30 [...] PM [facility] Lymphocytes Absolute 0.48(L) 1.00 - 5.00 K/mcL LAB HEMETOLOGY METHOD 10/08/2024 8:[address] [facility] Monocytes Absolute 0.55 0.20 - 1.00 K/[facility] LAB HEMETOLOGY METHOD 10/08/2024 8:[address] [facility] Eosinophils Absolute 0.03 0.00 - 0.50 K/[facility] LAB HEMETOLOGY METHOD 10/08/2024 8:[address] [facility] Basophils Absolute 0.01 0.00 - 0.20 K/[facility] LAB HEMETOLOGY METHOD 10/08/2024 8:55 PM EST [facility] Immature Granulocytes Absolute 0.04(H) 0.00 - 0.03 K/[facility] LAB HEMETOLOGY METHOD 10/08/2024 8:[address] [facility] Blood Venous blood specimen / Unknown Venipuncture / Unknown 10/08/2024 8:30 PM EST 10/08/2024 8:49 PM EST [employer] PA LAB BLOOD ORDERABLES F inal Result Performing Organization Address City/[facility]/ZIP Co de Phone Number [facility] [address] [place] [address], [place] [phone] * Lipase (10/08/2024 8:30 PM EST) Lipase 22 13 - 75 unit/L LAB CHEMISTRY METHOD 10/08/2024 9:[address] [facility] Blood Venous blood specimen / Unknown Venipuncture / Unknown 10/08/2024 8:30 PM EST 10/08/2024 8:49 PM EST [employer] PA LAB BLOOD ORDERABLES F inal Result Performing Organization Address City/[facility]/ZIP Co de Phone Number [facility] [address] [place] [address], [place] [phone] * (ABNORMAL) Comprehensive Metabolic Panel (CMP) (10/08/2024 8:30 PM EST) Sodium 137 133 - 145 mmol/L LAB CHEMISTRY METHOD 10/08/2024 9:20 PM [facility] Potassium 3.9 3.5 [...] LAB CHEMISTRY METHOD 10/08/2024 9:[address] [facility] Alkaline Phosphatase 98 42 - 121 unit/L LAB CHEMISTRY METHOD 10/08/2024 9:[address] [facility] Total Protein 6.9 6.0 - 8.0 g/dL LAB CHEMISTRY METHOD 10/08/2024 9:[address] [facility] Albumin 3.6 3.2 - 5.0 g/dL LAB CHEMISTRY METHOD 10/08/2024 9:20 PM [facility] Total Bilirubin 0.4 0.0 - 1.4 mg/dL LAB CHEMISTRY METHOD 10/08/2024 9:20 PM [facility] Blood Venous blood specimen / Unknown Venipuncture / Unknown 10/08/2024 8:30 PM EST 10/08/2024 8:49 PM EST Vera [facility] BLOOD ORDERABLES F inal Result [facility] [address] [place] [address], * XR Chest 2 Views (10/08/2024 6:06 [...] Signed Date: 10/09/2024 08:31 ET Workstation ID: [id number] Transcribed By: Self Edit Transcribed Date: 10/09/2024 [...] Signed Date: 10/09/2024 08:31 ET Workstation ID: [id number] Transcribed By: Self Edit Transcribed Date: 10/09/2024 [...] 5:58 PM EST 10/08/2024 6:[address] [facility] - 10/08/2024 7:09 PM EST [...] ORDJeny DESAI Final Result Performing Organization Address [facility] de Phone Number [facility] [address] [place] [address], [place] [phone] * Rapid strep A screen (10/08/2024 5:58 PM EST) Pathologist [facility] Strep A Ag Negative Negative, Invalid 10/08/2024 6:[address] [facility] Comment:Refer to Throat Cult ure. Swab Structure of anterior portion of neck / Unknown Non-blood Collection / Unknown 10/08/2024 5:58 PM EST 10/08/2024 6:05 PM EST Hao Bui MD LAB MICROBIOLOGY - [facility] ASYA DESAI Final Result Performing Organization Address [facility] de Phone Number [facility] [address] [place] [address], [place] [phone] * Culture throat (10/08/2024 5:58 PM EST) [facility] Culture, Throat No pathogens isolated. 10/10/2024 11:[address] [facility] Swab Structure of anterior portion of neck / Unknown Non-blood Collection / Unknown 10/08/2024 5:58 PM EST 10/08/2024 6:05 PM EST us Hao Bui MD LAB MICROBIOLOGY - GENERAL ORDE RABBRUNILDA Final Result Performing Organization Address [facility] Co de Phone Number [facility] [address] [place] [address], [place] [phone] from Last 3 [place] [id number] [place] Care Teams Fish Liver Sorter Relationship Specialty Start Date End Date Mayo Pablo NP [address] [place] [address] PCP - General Family Medicine 10/08/24
--- NOTE | 2024-11-13 10:46 | P.CONAN_ITS ---
Documented by User: Qian Cunningham NP 11/13/24 10:47 HPI - Anesthesia Eval Consult details Narrative: 64yo F for Upper Endoscopy and Colonoscopy Recent echo/stress by PCP for atypical CP were OK PMFSH Active Problems Active Problems: All Active Problems Elevated platelet count (Acute) Pure hypercholesterolemia (Acute) Osteopenia (Acute) Varicose veins of both lower extremities with inflammation (Acute) WARD (dyspnea on exertion) (Acute) Varicose veins of both legs with edema (Acute) Varicose veins of ankle (Acute) Chest pain (Acute) Numbness in feet (Acute) Esophageal dysmotility (Acute) History of depression (Acute) History of malignant neoplasm of cervix (Acute) Heart murmur (Acute) Tobacco use disorder (Acute) Escobedo esophagus (Acute) Positive colorectal cancer screening using Cologuard test (Acute) History of positive hepatitis C (Acute) GERD (gastroesophageal reflux disease) (Acute) Past Medical History Medical History Elevated platelet count Pure hypercholesterolemia Osteopenia WARD (dyspnea on exertion) Varicose veins of both legs with edema Varicose veins of ankle Chest pain Numbness in feet Esophageal dysmotility History of depression History of malignant neoplasm of cervix Screening for diabetes mellitus (DM) Heart murmur Tobacco use disorder Escobedo esophagus History of positive hepatitis C Positive colorectal cancer screening using Cologuard test Family History Family History Unknown Family history of colon cancer Surgical History Surgical History S/P surgery on nasal septum History of tonsillectomy Social History Social History Housing: House Patient Tobacco Use Status: Current everyday Tobacco user Cigarette Packs Per Day: 0.25 Cigarettes Per Day: 1 Years Smoked: 40 e-Cigarette/Vaping Use: Never Used Second Hand Smoke Exposure: No Use of substances other than those prescribed or required for medical reasons: Yes Have you been hit, kicked, punched, or otherwise hurt by someone within the past year? 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.) Current occupational exposures/hazards: No Cognitive needs: No Hearing needs: Yes (Need ears flushed.) Vision needs: No Meds Allergies Allergy/AdvReac Type Severity Reaction Status Date / Time azithromycin AdvReac Intermediate Nausea Verified 10/30/24 14:32 colonoscopy prep AdvReac Intermediate Nausea Uncoded 10/30/24 14:32 Home Medications ?Medication ?Instructions ?Recorded ?Confirmed ?Last Taken ?Type albuterol sulfate 90 mcg/actuation 2 puff inhalation Q6H PRN 11/03/23 Unknown History aerosol inhaler (Ventolin HFA) Exam Pertinent Lab Results Pertinent Lab Results: Laboratory Tests 08/23/24 10/24/24 12:32 12:21 WBC 10.1 Hgb 13.0 Hct 40.8 Plt Count 702 H Sodium 139 Potassium 4.2 Chloride 105 Carbon Dioxide 29 BUN 16 Creatinine 0.65 Narrative Narrative: ECHO 07/2024 Conclusions: - Essentially normal study Exercise Stress 10/2024 Protocol: ALEXANDER Max HR: 136 BPM 87% of Pred: 155 BPM Max BP: 136/60 mmHG Max Work Load: 5.8 METS Exercise Stress Test with exercise 5 mins 21 secs of Alexander Protocol, reduced speed at stage 2 to 2.0 mph, achieving 87% MPHR, with reports of moderate SOB, no chest discomfort, without any arrythmias, with normotensive response to exercise. Without EKG chnages meeting criteria for ischemia. In recovery, breathing returned to baseline. Nuclear images pending. Test reviewed [facility] Dr. Velez. Assessment and Plan Assessment Anesthesia Assessment: Chart Reviewed Documented by User: Jaziel Xiong MD 11/14/24 14:23 PMFSH Past Medical History Medical History Elevated platelet count Pure hypercholesterolemia Osteopenia WARD (dyspnea on exertion) Varicose veins of both legs with edema Varicose veins of ankle Chest pain Numbness in feet Esophageal dysmotility History of depression History of malignant neoplasm of cervix Screening for diabetes mellitus (DM) Heart murmur Tobacco use disorder Escobedo esophagus History of positive hepatitis C Positive colorectal cancer screening using Cologuard test Family History Family History Unknown Family history of colon cancer Family history of problems with anesthesia: No Surgical History Surgical History S/P surgery on nasal septum History of tonsillectomy History of Problems with Anesthesia: No Social History Social History Housing: House Patient Tobacco Use Status: Current everyday Tobacco user Cigarette Packs Per Day: 0.25 Cigarettes Per Day: 1 Years Smoked: 40 e-Cigarette/Vaping Use: Never Used Second Hand Smoke Exposure: No Use of substances other than those prescribed or required for medical reasons: Yes Have you been hit, kicked, punched, or otherwise hurt by someone within the past year? 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.) Current occupational exposures/hazards: No Cognitive needs: No Hearing needs: Yes (Need ears flushed.) Vision needs: No Meds Allergies Allergy/AdvReac Type Severity Reaction Status Date / Time azithromycin AdvReac Intermediate Nausea Verified 10/30/24 14:32 colonoscopy prep AdvReac Intermediate Nausea Uncoded 10/30/24 14:32 Home Medications ?Medication ?Instructions ?Recorded ?Confirmed ?Last Taken ?Type albuterol sulfate 90 mcg/actuation 2 puff inhalation Q6H PRN 11/03/23 Unknown History aerosol inhaler (Ventolin HFA) Exam Airway Mallampati Class: II TM Dist: >3cm Neck ROM: Full Denture: Upper and Lower Heart: ok Lungs: ok Assessment and Plan Assessment Anesthesia Assessment: Anesthesia Plan Discussed Final Anesthetic Review Family History of Problems with Anesthesia: No History of Problems with Anesthesia: No NPO: Yes ASA Class: II Final Preanesthetic Review: No Changes in Pt Med Stat, Meds/Allgs Chart Reviewed, Consent Obtained/Reviewed and Anes Risks/Benef Reviewed Patient Risk: Intermediate Procedure Risk: Intermediate Anesthetic Plan Anesthetic Plan: Agree w/ Assess. and Plan and TIVA Disposition: Standard PACU
[2024-11-14 12:35] VITALS: BP 113/32; PULSE 76; RESP 16; TEMP 36.7; O2SAT 96; BMI 34.2
[2024-11-14] MEDS: Lactated Ringers 1,000 ML 100 ML IVCONT (12:46)
--- NOTE | 2024-11-14 13:34 | P.HPSUR_ITS ---
Pre-Procedural Eval Section A - 24 Hr Update-Section A only Date of Service: 11/14/24 Section B - Complete if H&P > 30 days Chief Complaint: positive cologuard, BE Details of Present Illness: Mild asphyxia WARD (dyspnea on exertion) Varicose veins of both legs with edema Varicose veins of ankle Chest pain Numbness in feet Esophageal dysmotility History of depression History of malignant neoplasm of cervix Screening for diabetes mellitus (DM) Heart murmur Tobacco use disorder Escobedo esophagus History of positive hepatitis C Positive colorectal cancer screening using Cologuard test Surgical History S/P surgery on nasal septum History of tonsillectomy Present Medications: see Short Stay Collaborative assessment Allergies: Allergies Allergy/AdvReac Type Severity Reaction Status Date / Time azithromycin AdvReac Intermediate Nausea Verified 10/30/24 14:32 colonoscopy prep AdvReac Intermediate Nausea Uncoded 10/30/24 14:32 Review of Systems Review of Systems Comment: Ten point ROS negative Exam Exam Comment: Gen appear: No acute distress HEENT: no icterus Chest: No overt resp distress Abd: soft, nontender, nondistended Psych: Stable affect, answering questions appropriately Neuro: A/Ox3 noted to move all extremities spontaneously Ext: no peripheral edema Plan Diagnosis/Plan: Unchanged I have reviewed the history and physical and performed a pertinent physical examination on my patient. No changes have occurred unless specified. Time Spent With Patient Time: Total time managing care of this patient today ____ minutes.
--- NOTE | 2024-11-14 14:45 | P.OPN-COLO_ITS ---
Colonoscopy Operative Note Operative Note Date of Service: 11/14/24 Narrative: Procedure: Upper endoscopy and colonoscopy Indication: Hx of verma's esophagus, positive cologuard Endoscopist: Maxine Gill MD Anesthesia Provider: Anesthesia type: MAC Instrument: [id number] and [id number] EGD Procedure:?? The procedure, indications, preparation and potential complications were reviewed with the patient, who indicated understanding and gave written informed consent to proceed. The endoscope was introduced through the mouth, and advanced to the 2nd part of the duodenum. The mucosa was carefully examined on slow withdrawal of the endoscope. The patient tolerated the procedure well. There were no immediate complications.? EGD Findings:? * Esophagus:? Severe ulceration of lower esophagus with oozing from GEJ at 30 cm to 25 cm noted. Large hiatal hernia noted with diaphragmatic hiatus at 36 cm. * Stomach:? Normal gastric mucosa. Retroflexion was performed in the cardia. * Duodenum:? Normal duodenal mucosa. Colonoscopy Procedure:? The patient was then turned for the colonoscopy. A digital rectal exam was performed which was abnormal for external hemorrhoids.? A distal attachment cap was affixed to the tip of the scope and the colonoscope was then inserted through the anus and advanced through the colon and advanced to the cecum at 80 cm and terminal ileum.? Appendiceal orifice and ileocecal valve were identified. Mucosa was carefully examined under high definition white light as the instrument was slowly withdrawn in a retrograde panoramic fashion. Retroflexion was performed in ascending colon and rectum. The procedure was not difficult. The quality of the prep was BBPS: 2+2+3 = adequate Withdrawal time 15 minutes Limitations: No limitations Findings: Mucosa: x2 AVMs noted in right colon. Argon plasma coagulation applied with complete hemostasis. Remaining mucosa normal in colon and terminal ileum. Protruding lesions: * Medium internal hemorrhoids without stigmata of recent bleeding. Excavated lesions: * Mild to moderate diverticulosis of left colon. Impression: 1. Grade D esophagitis 2. Hiatal hernia 3. Normal stomach (biopsy) 4. Normal duodenum (biopsy) 5. x2 right colon AVMs 6. Diverticulosis 7. Internal and external hemorrhoids Recommendations:?? * Follow-up path results * Avoid NSAIDs * Increase PPI to BID x 8 weeks and then once daily * Repeat EGD in 2-3 months to assess for healing of esophagitis and BE surveillance * Repeat colonoscopy in 5 years due to family history
[2024-11-14 14:48] VITALS: BP 117/38; PULSE 76; RESP 18; TEMP 36.4; O2SAT 97
[2024-11-14 15:03] VITALS: BP 124/51; PULSE 73; RESP 16; TEMP 36.4; O2SAT 99
== END 2024-11-14 15:45 | disposition home or self-care (01) ==
PROVIDERS: PCP Physician Assistant Medical; Visit Provider Internal Medicine
PROC: (CPT 45388; principal; 2024-11-14 13:20)
DX: R19.5 Other fecal abnormalities (principal); K55.20 Angiodysplasia of colon without hemorrhage; K57.30 Diverticulosis of large intestine without perforation or abscess without bleeding; K64.8 Other hemorrhoids; K64.4 Residual hemorrhoidal skin tags; K21.9 Gastro-esophageal reflux disease without esophagitis; K22.70 Barrett's esophagus without dysplasia; K20.80 Other esophagitis without bleeding; K44.9 Diaphragmatic hernia without obstruction or gangrene
CPT/HCPCS: 45388; 43235; J2003; J2704; J3010

== ENCOUNTER → 2024-11-14 11:22 | Outpatient (BNV) | payer MEDICARE, MEDICAID, SELFPAY | PROVIDERS: PCP Physician Assistant Medical; Visit Provider Internal Medicine | DX: Z12.11 Encounter for screening for malignant neoplasm of colon (principal); R19.5 Other fecal abnormalities; Q27.33 Arteriovenous malformation of digestive system vessel; K64.8 Other hemorrhoids; K20.90 Esophagitis, unspecified without bleeding | CPT/HCPCS: 43235; 45388 ==

== ENCOUNTER 2024-11-27 15:04 | Outpatient (AMB) | payer MEDICARE, MEDICAID, SELFPAY ==
--- NOTE | 2024-11-27 15:12 | A.OFFVIS_ITS ---
Vital Signs 11/27/24 15:13 Height 5 ft Weight 176 lb 5.917 oz BMI 34.4 BP 137/60 Blood Pressure Location Lt brachial Position Sitting Pulse 98 Intake Visit Reasons: f/u double Intake Note: Molly presents in the office as a follow up EGD and COLO. CC: She states that this year she went to the ED because she was having pains in her chest cavity - she figured out if her esophagus is that messed up that chances are that her issues are due to that. Central Office Maintainer Required: No Allergies azithromycin Adverse Reaction (Intermediate, Verified 11/27/24 15:13) Nausea colonoscopy prep Adverse Reaction (Intermediate, Uncoded 11/27/24 15:13) Nausea HPI Comments Details: 64 y.o F with PMH of GERD, BE, smoker who is here to establish care. Pt had a cologuard test in February 2023 which was POSITIVE however she then moved from [place] May 2023 before colo could be done (prev GI Dr Saw Sparks in [facility]). Once she estabished care with local PCP winter 2022 a referral was generated but a colo could not take place due to multiple barriers. Was able to switch insurance and PCP again earlier this year and is now here for follow up colonoscopy. Pt herself reports having a change in bowel habits and occ blood in stool. It is unclear why a cologuard was ordered and not a diagnostic colonoscopy for these sx. Pt also has hx of hiatal hernia and reported BE and at one point was getting EGDs every 1-2 years. Takes pantoprazole 40 once a day. Last endoscopy: EGD/colo 2018 - BE (pt told was improving), no polyps. Fam hx of CRC in pat grandfather in his 70s. Sister with UC diagnosed in her 20s with surgical history. Pt smokes 2-4 cigs/day prev 1PPD x 40 years. No etOH use. Occ takes ibuprofen. PCP notes reviewed - also ? of HCV. Pt reports having an admission in the hospital for yellow eyes in 80s which was determined to be of unknown cause. 11/08/24: 1. Grade D esophagitis 2. Hiatal hernia 3. Normal stomach 4. Normal duodenum 5. x2 right colon AVMs 6. Diverticulosis 7. Internal and external hemorrhoids 11/27/24: Here for follow up. No active issues. Was taking omeprazole once daily and advised to increase to BID x 8 weeks. Pt also aware to repeat colo in 5 years. [facility] Medical History (Updated 11/27/24 @ 17:29 by Maxine Gill MD) Elevated platelet count Pure hypercholesterolemia Osteopenia WARD (dyspnea on exertion) Varicose veins of both legs with edema Varicose veins of ankle Chest pain Numbness in feet Esophageal dysmotility History of depression History of malignant neoplasm of cervix Screening for diabetes mellitus (DM) Heart murmur Tobacco use disorder Escobedo esophagus Positive colorectal cancer screening using Cologuard test Surgical History (Updated 11/27/24 @ 15:17 by WILFRED Veloz) Hx of colonoscopy History of esophagogastroduodenoscopy (EGD) S/P surgery on nasal septum History of tonsillectomy Family History Unknown Family history of colon cancer Social History Housing: House Patient Tobacco Use Status: Current everyday Tobacco user Cigarette Packs Per Day: 0.25 Cigarettes Per Day: 1 Years Smoked: 40 e-Cigarette/Vaping Use: Never Used Second Hand Smoke Exposure: No service: No 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, 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.) Current occupational exposures/hazards: No Cognitive needs: No Hearing needs: Yes (Need ears flushed.) Vision needs: No Review of Systems Const All systems reviewed & are unremarkable except as noted in HPI and below Physical Exam Vital Signs: Last Vital Signs Pulse 98 11/27/24 15:13 BP 137/60 11/27/24 15:13 BMI result Body Mass Index 34.4 No apparent distress Nonicteric, wearing mask Abdomen soft, nondistended Alert and oriented x3, normal gait Assessment & Plan Assessment & Plan (1) Chest pain: Code(s): R07.9 - Chest pain, unspecified Category: Medical (2) Escobedo esophagus: Code(s): K22.70 - Escobedo's esophagus without dysplasia Category: Medical (3) GERD (gastroesophageal reflux disease): Code(s): K21.9 - Gastro-esophageal reflux disease without esophagitis Category: Medical Qualifiers: Esophagitis presence: without esophagitis Qualified Code(s): K21.9 - Gastro-esophageal reflux disease without esophagitis (4) [place] grade D esophagitis: Code(s): K20.80 - Other esophagitis without bleeding Category: Medical (5) Hepatitis C antibody detected: Code(s): R76.8 - Other specified abnormal immunological findings in serum Category: Medical Plan 1. GERD/grade D esophagitis Has severe reflux. Will likely need lifelong antisecretory therapy. Risk factors include obesity and HH. Plan: - Cont pantoprazole 20 BID x 8 weeks and then once daily - Repeat EGD to be booked in 2-3 months to assess for healing and to monitor BE. 2. HCV Ab + Pt was reassured that viral levels NEGATIVE i.e she does NOT have chronic HCV infection. Follow up after egd Coding Level of Care Code Est Pt Level 3 (84470) Diagnoses Chest pain R07.9 Escobedo esophagus K22.70 Gastroesophageal reflux disease without esophagitis K21.9 Esophagitis presence: without esophagitis [place] grade D esophagitis K20.80 Hepatitis C antibody detected R76.8
[2024-11-27 15:13] VITALS: BP 137/60; PULSE 98; BMI 34.4
--- OUTSIDE RECORDS SUMMARY | 2024-11-27 18:00 | XMS_ITS | Clinical Summary ---
Author Organization [facility] Address [address] [place] [address] Phone Care Team Providers Care Buyer Assistant Name Role Phone Mayo Pablo NP Primary Care Provider [phone] Allergies Active Allergy Reactions Criticality Noted Date Comments Azithromycin GI intolerance 10/08/2024 Encounters Date Type Department Care Team Description 10/08/2024 6:56 PM EST - 10/08/2024 11:29 PM EST Emergency [facility] Emergency [address] [place] [address] Hao Bui MD Enteritis (Primary Dx); Nausea; Diarrhea, unspecified type; Pharyngitis, unspecified etiology Discharge Disposition: Home or Self Care from Last 3 Months Medical History Medical History Date Comments Cancer (CMS/[facility]) Hypertension Social History Tobacco Use Types Packs/Day [...] 60-74 years 1-dose series) 2019 COVID-19 Vaccine ( - 2023-2 5 season) 2024 Influenza Vaccine [...] and culture (10/08/2024 9:41 PM EST) Specific [place] Urine 1.030 1.003 - 1.030 LAB URINALYSIS [...] URINALYSIS - AUTOMATED METHOD 10/08/2024 10:13 PM EST [facility] Bacteria, Urine Negative Negative /HPF LAB URINALYSIS - AUTOMATED METHOD 10/08/2024 10:13 PM [facility] Hyaline Casts, Urine 0.8 0 - 3 /LPF LAB URINALYSIS - AUTOMATED METHOD 10/08/2024 10:13 PM [facility] Urine Urine specimen obtained by clean catch procedure / Unknown Non-blood Collection / Unknown 10/08/2024 9:41 PM EST 10/08/2024 9:55 PM EST Vera Smartbill - Recurrence BackofficeyuliyaBetyahRyan [facility] LAB URINE ORDERABLES F inal Result Performing Organization Address [facility]/ZIP Co de Phone Number [facility] [address] [place] [address], [place] [phone] * [place] urine culture tube (10/08/2024 9:41 PM EST) Pathologist [facility] Extra Tube Hold for add-ons. 10/08/2024 11:01 PM EST [facility] Comment:Auto resulted. Urine Urine specimen obtained by clean catch procedure / Unknown Non-blood Collection / Unknown 10/08/2024 9:41 PM EST 10/08/2024 9:55 PM EST The Float YardyuliyaBetyahRyan [facility] LAB URINE ORDERABLES F inal Result [facility] [address] [place] [address], [place] [phone] * (ABNORMAL) CBC auto differential (10/08/2024 8:30 PM EST) WBC 12.4(H) 4.8 - 10.8 [facility] LAB HEMETOLOGY METHOD 10/08/2024 8:55 PM BARRE [...] 8:55 PM [facility] Basophils Absolute 0.01 0.00 - 0.20 K/mcL LAB HEMETOLOGY METHOD 10/08/2024 8:55 PM [facility] Immature Granulocytes Absolute 0.04(H) 0.00 - 0.03 K/mcL LAB HEMETOLOGY METHOD 10/08/2024 8:55 PM [facility] Blood Venous blood specimen / Unknown Venipuncture / Unknown 10/08/2024 8:30 PM EST 10/08/2024 8:49 PM EST us Vera [facility] LAB BLOOD ORDERABLES F inal Result [facility] [address] [place] [address], [place] [phone] * Lipase (10/08/2024 8:30 PM EST) [facility] Lipase 22 13 - 75 unit/L LAB CHEMISTRY METHOD 10/08/2024 9:20 PM EST [facility] Blood Venous blood specimen / Unknown Venipuncture / Unknown 10/08/2024 8:30 PM EST 10/08/2024 8:49 PM EST Vera [facility] LAB BLOOD ORDERABLES F inal Result Performing Organization Address City/[facility]/ZIP Co de Phone Number [facility] [address] [place] [address], [place] [phone] * (ABNORMAL) Comprehensive Metabolic Panel (CMP) (10/08/2024 8:30 PM EST) [facility] Sodium 137 133 - 145 mmol/L LAB CHEMISTRY METHOD 10/08/2024 9:20 PM [facility] Potassium 3.9 3.5 - 5.5 [...] g/dL LAB CHEMISTRY METHOD 10/08/2024 9:20 PM [facility] Albumin 3.6 3.2 - 5.0 g/dL LAB CHEMISTRY METHOD 10/08/2024 9:20 PM [facility] Total Bilirubin 0.4 0.0 - 1.4 mg/dL LAB CHEMISTRY METHOD 10/08/2024 9:20 PM [facility] Blood Venous blood specimen / Unknown Venipuncture / Unknown 10/08/2024 8:30 PM EST 10/08/2024 8:49 PM EST us Vera [facility] LAB BLOOD ORDERABLES F inal Result [facility] [address] [place] [address], * XR Chest 2 Views (10/08/2024 6:06 PM EST) Anatomical Region Laterality Modality Body Radiographic Nati ging 10/09/2024 8:31 AM EST Impressions 10/09/2024 8:31 AM EST FINDINGS/IMPRESSION: Lungs are clear. ??No pleural effusion or pneumothorax. ??Cardiac silhouette is normal in size. ??Degenerative changes seen throughout the bones. -------- FINAL REPORT -------- Dictated By: TERESA BARNHART Dictated Date: 10/09/2024 08:31 ET Assigned Physician: TERESA BARNHART Reviewed and Electronically Signed By: TERESA BARNHART Signed Date: 10/09/2024 08:31 ET Workstation ID: [id number] Transcribed By: Self Edit Transcribed Date: 10/09/2024 08:31 ET Narrative 10/09/2024 8:31 AM EST XR CHEST 2 VIEWS INDICATION: ??Pain TECHNIQUE: XR CHEST 2 VIEWS COMPARISON: No priors available. Procedure Note Teresa Barnhart MD - 10/09/2024 XR CHEST 2 VIEWS INDICATION: Pain TECHNIQUE: XR CHEST 2 VIEWS COMPARISON: No priors available. IMPRESSION: FINDINGS/IMPRESSION: Lungs are clear. No pleural effusion orpneumothorax. Cardiac silhouette is normal in size. Degenerative changesseen throughout the bones. -------- FINAL REPORT -------- Dictated By: TERESA BARNHART Dictated Date: 10/09/2024 08:31 ET Assigned Physician: TERESA BARNHART Reviewed and Electronically Signed By: TERESA BARNHART Signed Date: 10/09/2024 08:31 ET Workstation ID: [id number] Transcribed By: Self Edit Transcribed Date: 10/09/2024 08:31 ET Hao Bui MD IMG XR PROCEDURES Final Result * Respiratory virus panel molecular study (10/08/2024 5:58 PM EST) Pathologist [facility] Adenovirus Detection by PCR Not Detected Not Detected LAB MICROBIOLOGY METHOD 10/08/2024 7:09 PM [facility] Influenza A PCR Not Detected Not Detected LAB MICROBIOLOGY METHOD 10/08/2024 7:09 PM [facility] Influenza B PCR Not Detected Not Detected LAB MICROBIOLOGY METHOD 10/08/2024 7:09 PM [facility] Coronavirus 229E Not Detected Not Detected LAB MICROBIOLOGY METHOD 10/08/2024 7:09 PM [facility] Coronavirus HKU1 Not Detected Not Detected LAB MICROBIOLOGY METHOD 10/08/2024 7:09 PM [facility] Coronavirus OC43 Not Detected Not Detected LAB MICROBIOLOGY METHOD 10/08/2024 7:09 PM [facility] Coronavirus NL63 Not Detected Not Detected LAB MICROBIOLOGY METHOD 10/08/2024 7:09 PM [facility] Parainfluenza Virus 1 Not Detected Not Detected LAB MICROBIOLOGY METHOD 10/08/2024 7:09 PM [facility] Parainfluenza Virus 2 Not Detected Not Detected LAB MICROBIOLOGY METHOD 10/08/2024 7:09 PM [facility] Parainfluenza Virus 3 Not Detected Not Detected LAB MICROBIOLOGY METHOD 10/08/2024 7:09 PM [facility] Parainfluenza Virus 4 Not Detected Not Detected LAB MICROBIOLOGY METHOD 10/08/2024 7:09 PM [facility] RSV PCR Not Detected Not Detected LAB MICROBIOLOGY METHOD 10/08/2024 7:09 PM [facility] Human Metapneumovirus A and B Not Detected Not Detected LAB MICROBIOLOGY METHOD 10/08/2024 7:09 PM [facility] Rhinovirus/Entero virus Not Detected Not Detected LAB MICROBIOLOGY METHOD 10/08/2024 7:09 PM [facility] Bordetella pertussis Not Detected Not Detected LAB MICROBIOLOGY METHOD 10/08/2024 7:09 PM [facility] Bordetella parapertussis Not Detected Not Detected LAB MICROBIOLOGY METHOD 10/08/2024 7:09 PM EST [facility] Mycoplasma pneumo by PCR Not Detected Not Detected LAB MICROBIOLOGY METHOD 10/08/2024 7:09 PM EST [facility] Chlamydia pneumoniae Not Detected Not Detected LAB MICROBIOLOGY METHOD 10/08/2024 7:09 PM EST [facility] SARS COV-2 Not Detected Not Detected LAB MICROBIOLOGY METHOD 10/08/2024 7:09 PM EST [facility] Swab Both anterior nares / Unknown Non-blood Collection / Unknown 10/08/2024 5:58 PM EST 10/08/2024 6:05 PM EST Narrative [facility] - 10/08/2024 7:09 PM EST Testing was performed using the xCloud Respiratory Pathogen PCR Assay. All results must [...] MICROBIOLOGY - GENERAL ASYA DESAI Final Result [facility] [address] [place] [address], * Rapid strep A screen (10/08/2024 5:58 PM EST) Strep A Ag Negative Negative, Invalid 10/08/2024 6:18 PM EST [facility] Comment:Refer to Throat Cult ure. Swab Structure of anterior portion of neck / Unknown Non-blood Collection / Unknown 10/08/2024 5:58 PM EST 10/08/2024 6:05 PM EST us Hao Bui MD LAB MICROBIOLOGY - GENERAL ORDJeny RABBRUNILDA Final Result [facility] [address] [place] [address], [place] [phone] * Culture throat (10/08/2024 5:58 PM EST) Culture, Throat No pathogens isolated. 10/10/2024 11:52 AM EST [facility] Swab Structure of anterior portion of neck / Unknown Non-blood Collection / Unknown 10/08/2024 5:58 PM EST 10/08/2024 6:05 PM EST Hao Bui MD LAB MICROBIOLOGY - GENERAL ASYA DESAI Final Result Performing Organization Address [facility]/ZIP Co de Phone Number [facility] [address] [place] [address], [place] [phone] from Last 3 Months Insurance MEDICAID - [place] [facility] MEDICARE ADVANTAGE Care Teams Buyer Assistant Relationship Specialty Start Date End Date Mayo Pablo NP [address] [place] [address] PCP - General Family Medicine 10/08/24
--- OUTSIDE RECORDS SUMMARY | 2024-11-27 18:00 | XMS_ITS | Clinical Summary ---
Author Organization [facility] Address [address] [place] [address] Care Team Providers Care Special Education Assistant Name Role Phone Chris Carias Primary Care Provider [phone] Source Comments PLEASE NOTE, if this patient [...] patient normal results will be released to [employer] portal. -Discussed with patient potential of repeating [...] Screening (#1) 01/29/2024 FIT/gFOBT 02/18/2024 02/17/2023, 04/29/2022 [id number] ( - season) 2024 Imm-Influenza (#1) 2024 [...] PDT) COLOGUARD RESULT REPORTABLE Positive( A) Negative [facility] (CLIA #:[id number]) Comment: POSITIVE TEST RESULT. A positive Cologuard [...] (Lakeshia Brandt al, N Engl J Med 2014;370(14):2319-3806.) Cologuard may produce a false negative or false positive result (no colorectal cancer or precancerous polyp present at colonoscopy follow up). A negative Cologuard test result does not guarantee the absence of CRC or advanced adenoma (pre-cancer). The current Cologuard screening interval is every 3 years. ([place] Cancer Society and U.S. Multi-Society Task Force). Cologuard performance data in a 10,000 patient pivotal study using colonoscopy as the reference method can be accessed at the following location: www.Nexi.com/results. Additional description of the Cologuard test process, warnings and precautions can be found at www.cologuard.com. Stool Stool specimen / Unknown 02/17/2023 1:00 AM PDT 02/18/2023 3:18 PM PDT Sami Rios DO LAB - NO BLOOD DRAW Final Resu lt [facility] [address] [place] [address], [facility] [address] CLIA [id number] [place] [address], [facility] (CLIA #:[id number]) [address] [place] [address] * HIV 1/2 AG & AB W/RFLX (4TH GEN) (11/17/2021 8:46 AM PDT) HIV AG/AB, 4TH GEN NON-REACTI VE NON-REACT CONCHA 11/18/2021 1:13 PM PDT [facility] Blood Blood / Unknown 11/17/2021 [...] . For additional information please refer to http://education.[employer].Revue Labs/faq/CCO915 (This link is being provided for informational/ educational purposes only.) . . The performance of this assay has not been clinically validated in patients less than 2 years old. . Manuela Alarcon NP LAB - BLOOD DRAW Final Result Performing Organization Address City/State/[facility] Co de Phone Number [facility] [address] [place] [address], [facility] [place] [address] [place] [address] * HEMOGLOBIN, GLYCOSYLATED (A1C) (11/17/2021 8:43 AM PDT) HEMOGLOBIN A1C 5.5 <5.7 % of total Hgb 11/18/2021 5:03 AM PDT [facility] Blood Blood / Unknown 11/17/2021 8 :43 AM PDT Narrative [facility] - 11/20/2021 10:18 AM PDT [...] of diabetes in children. . According to [place] Diabetes Association (ADA) guidelines, hemoglobin A1c <7.0% represents optimal control in non- diabetic patients. Different metrics may apply to specific patient populations. Standards of Medical Care in Diabetes(ADA). . Manuela Alarcon NP LAB - BLOOD DRAW Edited Resul t - Final [facility] [address] [facility] [place] [address], [facility] [address] [facility] [place] [address] * (ABNORMAL) LIPID PANEL (11/17/2021 8:43 AM PDT) [facility] CHOLESTEROL, TOTAL 237(H) <200 mg/dL 11/18/2021 [...] LDL-C. Pancho SS et al. YEIMY. 2013;310(19): 8149-8458 (http://education.[employer].Revue Labs/faq/NRZ082) For patients with diabetes plus 1 major ASCVD risk factor, treating to a non-HDL-C goal of <100 mg/dL (LDL-C of <70 mg/dL) is considered a therapeutic option. us Manuela Alarcon NP LAB - BLOOD DRAW Edited Resul t - Final [facility] [address] [facility] [place] [address], [facility] [address] [place] [address] from Last 3 Months or Most Recently Relevant to Health Maintenance Insurance [employer] Care Teams Special Education Assistant Relationship Specialty Start Date End Date Chris Carias PA [address] [place] [address] PCP - General FAMILY MEDICINE, [place] 10/29/22
== END 2024-11-27 16:32 | disposition home or self-care (01) ==
LOC: HO.HGI 15:05
PROVIDERS: PCP Physician Assistant Medical; Visit Provider Internal Medicine
DX: R07.9 Chest pain, unspecified (principal); K22.70 Barrett's esophagus without dysplasia; K21.9 Gastro-esophageal reflux disease without esophagitis; K20.80 Other esophagitis without bleeding; R76.8 Other specified abnormal immunological findings in serum
CPT/HCPCS: 99213

== ENCOUNTER → 2024-11-27 15:04 | Outpatient (BNVA) | payer MEDICARE, MEDICAID, SELFPAY | PROVIDERS: PCP Physician Assistant Medical; Visit Provider Internal Medicine | DX: K21.9 Gastro-esophageal reflux disease without esophagitis (principal); K22.70 Barrett's esophagus without dysplasia; K20.80 Other esophagitis without bleeding; R76.8 Other specified abnormal immunological findings in serum; R07.9 Chest pain, unspecified | CPT/HCPCS: 99212 ==

== ENCOUNTER → 2024-12-05 14:39 | Outpatient (BNV) | payer MEDICARE, MEDICAID, SELFPAY | PROVIDERS: PCP Physician Assistant Medical; Referring Provider Physician Assistant Medical; Visit Provider Internal Medicine Medical Oncology | DX: D75.839 Thrombocytosis, unspecified (principal) | CPT/HCPCS: 99204 ==

== ENCOUNTER 2025-01-22 10:54 | Outpatient (REF) | payer MEDICARE, MEDICAID, SELFPAY ==
[2025-01-22 11:04] LABS: MANUAL DIFF FLAG NO
--- OUTSIDE RECORDS SUMMARY | 2025-01-22 11:35 | XMS_ITS | Clinical Summary ---
Author Organization [facility] Address [address] [place] [address] Phone Care Team Providers Care Associate Loan Officer Name Role Phone Mayo Pablo NP Primary Care Provider [phone] Allergies Active Allergy Reactions Criticality Noted Date Comments Azithromycin GI intolerance 10/08/2024 Medical History Medical History Date Comments Cancer ([facility] V24, [facility] V28) Hypertension Social History Tobacco Use Types Packs/Day [...] - Risk 3-dose series) 2019 RSV Immunization Adult Patients (1 - Risk 60-74 years 1-dose series) 2019 COVID-19 Vaccine (1 - 2023-2 5 season) 2024 Depression Screening 10/08/2024 01/29/2023 Falls Risk Assessment 10/08/2024 Hepatitis C Screening 10/08/2024 Medicare Annual Wellness Visit 10/08/2024 Osteoporosis Screening (Bone Density Screening) 10/08/2024 Social Influencers of Health Screening 10/08/2024 Influenza Vaccine (Season Ended) 2025 Colorectal Cancer Screening: FIT-DNA (Cologuard) 02/17/2026 02/17/2023, [...] age to complete this topic Meningococcal B Vaccine Aged Out No l onger eligible based on patient's age to complete this topic RSV Immunization Patients Under 20 months Aged Out No longer eligible b ased on patient's age to complete this topic Varicella Vaccines Aged Out No longer eligible based on patient's age to complete this topic Insurance MED[place]ID - [place] [facility] MEDICARE ADVANTAGE Care Teams Associate Loan Officer Relationship Specialty Start Date End Date Mayo Pablo NP [address] [place] [id number] PCP - General Family Medicine 10/08/24
--- OUTSIDE RECORDS SUMMARY | 2025-01-22 11:35 | XMS_ITS | Clinical Summary ---
Author Organization [facility] Address [address] [place] [address] Care Team Providers Care Head Of Training And Development Name Role Phone Chris Carias Primary Care Provider [phone] Source Comments PLEASE NOTE, if this patient [...] patient normal results will be released to [employer] portal. -Discussed with patient potential of [...] hernia 07/13/2019 Hyperlipidemia 07/13/2019 Mild intermittent asthma (HHS-HCC) 07/13/2019 Retrosternal pain 07/13/2019 Chronic hepatitis C [...] Health Maintenance Due Date Last Done Comments Anxiety Screening 1960 Tobacco Screening 1960 Imm-DTaP/Tdap/Td (1 - Tdap) [...] Hypertension Screening (#1) 01/29/2024 FIT/gFOBT 02/18/2024 02/17/2023, 02/04, 04/29/2022 [id number] ( - season) 2024 Imm-Influenza (#1) 2024 [...] PDT) COLOGUARD RESULT REPORTABLE Positive( A) Negative [facility] (CLIA #:[id number]) Comment: POSITIVE TEST RESULT. A positive Cologuard [...] (Lakeshia Brandt al, N Engl J Med 2014;370(14):4085-2786.) Cologuard may produce a false negative or false positive result (no colorectal cancer or precancerous polyp present at colonoscopy follow up). A negative Cologuard test result does not guarantee the absence of CRC or advanced adenoma (pre-cancer). The current Cologuard screening interval is every 3 years. ([place] Cancer Society and U.S. Multi-Society Task Force). Cologuard performance data in a 10,000 patient pivotal study using colonoscopy as the reference method can be accessed at the following location: www.[employer]/results. Additional description of the Cologuard test process, warnings and precautions can be found at www.cologuard.com. Stool Stool specimen / Unknown 02/17/2023 1:00 AM PDT 02/18/2023 3:18 PM PDT [facility] DO LAB BODY FLUIDS AND STOOLS AMB ULATORY Final Result [facility] [address] [place] [address], [facility] [address] CLIA [id number] [place] [address], [facility] (CLIA #:[id number]) [address] [place] [address] * HIV 1/2 AG & AB W/RFLX (4TH GEN) [F - P] (11/17/2021 8:46 AM PDT) HIV AG/AB, 4TH GEN NON-REACTI VE NON-REACT CONCHA 11/18/2021 1:13 PM PDT [facility] Blood Blood / Unknown 11/17/2021 [...] . For additional information please refer to http://education.[employer]Master/faq/TTM130 (This link is being provided for informational/ educational purposes only.) . . The performance of this assay has not been clinically validated in patients less than 2 years old. . Manuela Alarcon NP LAB - BLOOD DRAW Final Result Performing Organization Address City/State/[facility] Co de Phone Number [facility] [place] [id number] [place] [address], [facility] [address] [address] * HEMOGLOBIN, GLYCOSYLATED (A1C) (11/17/2021 8:43 AM PDT) HEMOGLOBIN A1C 5.5 <5.7 % of total Hgb 11/18/2021 5:03 AM PDT [facility] Blood Blood / Unknown 11/17/2021 8 :43 AM PDT Narrative [facility] - 11/20/2021 10:18 AM PDT FASTING:YES For [...] of diabetes in children. . According to [place] Diabetes Association (ADA) guidelines, hemoglobin A1c <7.0% represents optimal control in non- diabetic patients. Different metrics may apply to specific patient populations. Standards of Medical Care in Diabetes(ADA). . us Manuela Alarcon NP LAB - BLOOD DRAW Edited Resul t - Final [facility] [address] [facility] [place] [address], [facility] [address] [facility] [place] [address] * (ABNORMAL) LIPID PANEL (11/17/2021 8:43 AM PDT) CHOLESTEROL, TOTAL 237(H) <200 mg/dL 11/18/2021 3:13 [...] . LDL-C is now calculated using the Freya calculation, which is a validated novel method providing better accuracy than the Friedewald equation in the estimation of LDL-C. Pancho DOUGLAS et al. YEIMY. 2013;310(19): 6471-4244 (http://education.Tigerlily.Pollen/faq/END999) For patients with diabetes plus 1 major ASCVD risk factor, treating to a non-HDL-C goal of <100 mg/dL (LDL-C of <70 mg/dL) is considered a therapeutic option. us Manuela Alarcon NP LAB - BLOOD DRAW Edited Resul t - Final [facility] [address] [facility] [place] [address], [facility] [address] [facility] [place] [address] from Last 3 Months or Most Recently Relevant to Health Maintenance Insurance [facility] Care Teams Head Of Training And Development Relationship Specialty Start Date End Date Chris Carias PA [address] [place] [address] PCP - General FAMILY MEDICINEWALTER 10/29/22
[2025-01-22 11:47] LABS: Basophils Absolute Auto 0.1 X10*3/uL (0.0-0.2); Eosinophils Absolute Auto 0.3 X10*3/uL (0.0-0.4); Hemoglobin 14.8 g/dl (12.0-16.0); Imm Gran Abs Auto 0.02 X10*3/uL (0.00-0.03); Imm Gran Pct Auto 0.3 % (0.0-0.4); Lymphocytes Absolute Auto 2.5 X10*3/uL (1.2-4.9); Lymphocytes Percent Auto 37.5 % (20-40); Mean Corpuscular HGB Conc 32.2 g/dl (31.0-35.0); Mean Corpuscular Hemoglobin 27.8 pg (27.0-33.0); Mean Corpuscular Volume 86.3 fL (80.0-98.0); Mean Platelet Volume 10.9 fL (9.4-12.3); Monocytes Absolute Auto 0.6 X10*3/uL (0.1-1.2); Monocytes Percent Auto 8.9 % (2-11); Neutrophils Absolute Auto 3.2 x10*3/uL (2.0-8.3); Neutrophils Percent Auto 47.3 % (45-73); Platelet Count 458 X10*3/uL (160-400); Red Blood Count 5.33 X10*6/uL (4.20-5.50); Red Cell Distribution Width 17.8 % (11.0-16.0); White Blood Count 6.8 X10*3/uL (4.8-10.8)
[2025-01-22 12:20] LABS: Iron 87 mcg/dL (30-160); Percent Iron Saturation 24 % (15-50); Total Iron Binding Capacity 357 mcg/dL (228-428); Unsaturated Iron Binding 270 ug/dL
[2025-01-22 12:36] LABS: Ferritin 31 ng/mL (10-250)
== END 2025-01-22 10:55 | disposition home or self-care (01) ==
LOC: HO.LAB 10:54
PROVIDERS: PCP Physician Assistant Medical; Visit Provider Physician Assistant Medical
DX: R79.89 Other specified abnormal findings of blood chemistry (principal); E78.00 Pure hypercholesterolemia, unspecified; I83.11 Varicose veins of right lower extremity with inflammation; I83.12 Varicose veins of left lower extremity with inflammation; R07.9 Chest pain, unspecified; K22.70 Barrett's esophagus without dysplasia; J45.909 Unspecified asthma, uncomplicated; H54.7 Unspecified visual loss
CPT/HCPCS: 36415; 82728; 83540; 85025; 96127; 99212

== ENCOUNTER 2025-01-22 14:01 | Outpatient (AMB) | payer MEDICARE, MEDICAID, SELFPAY ==
--- NOTE | 2025-01-22 14:05 | MHC.PC.OV ---
Vital Signs 01/22/25 14:16 Height 5 ft Weight 177 lb BMI 34.6 BP 116/64 Blood Pressure Location Rt brachial Position Sitting Pulse 97 Pulse Source Pulse Oximeter Temp 97.9 F Temp Source Temporal Artery Scan Pulse Oximetry (%) 98 Oxygen Delivery Method Room Air Intake Visit Reasons: follow up Intake Note: Molly presents in the office today for a follow up. Allergies azithromycin Adverse Reaction (Intermediate, Verified 01/22/25 14:07) Nausea colonoscopy prep Adverse Reaction (Intermediate, Uncoded 01/22/25 14:07) Nausea Tobacco use date assessed: 01/22/25 Fall risk assessment: 1 Fall in past year Last assessed Fall Risk: 01/22/25 Dental Screening Dental Screen Date: 01/22/25 Did you have a dental visit in the last 12 months?: No Did you have a dental problem in the last 6 months where you did not have access to dental care?: No Was dental information given to patient?: Yes HPI HPI Comments History of Present Illness Details This is a 64-year-old female with a past medical history of esophageal dysmotility, gastritis, depression, heart murmur, Barretts esophagus and GERD presenting for follow up. Hyperlipidemia-I prescribed a statin, but she expressed that she does not want to take medication to lower her cholesterol. She modified her diet, and she is trying to exercise more. Her LDL decreased from 170 to 133. Triglycerides 106 and HDL cholesterol 64. She underwent a nuclear stress test on 10/24/24 which was negative. The patient also had an echocardiogram on 07/28/2024 which was essentially normal and demonstrated an ejection fraction between 65 and 70%. As you recall she has been evaluated for chest pain in the past. She has episodes that last 15-20 minutes. They occur abruptly and are described as an 8/10 sharp aching pain across her chest. Chest pain is nonexertional. She associated nausea with the pain sometimes. The pain does not radiate. She denied neck and jaw discomfort or heaviness in her arms. She reported getting many EKGs in the past for evaluation of chest pain which were normal. She did go to [facility] in 10/26/2023 for evaluation of chest pain and had a negative chest x-ray, and her EKG showed normal sinus rhythm and no ischemic changes. She has a history of Escobedo's esophagus and a positive Cologuard test which was done before she relocated to [place]. She saw Gastroenterology. Endoscopy demonstrated gastritis and severe acid reflux. She is taking pantoprazole 40 mg twice daily. She will repeat the endoscopy to see if there is improvement. Colonoscopy was negative for malignancy, and she was instructed to repeated the test in 2029. The patient saw Dr. Varela for evaluation of thrombocytosis. This is trending down. She is on baby aspirin daily. No iron-deficiency. The patient saw vascular surgery on 07/21/2024 for evaluation of symptomatic varicose veins in her lower extremities. She was advised to try compression stockings, and venous insufficiency testing was ordered. Patient said she put off the ultrasound, but she does plan to have it done in follow up with vascular. Seasonal allergies are bothering her, and she requests a refill on her inhaler and an allergy medication. She has a history of asthma. She has itchy eyes and sneezing and an itchy nose. Patient has glasses, but she was told by her inspector final assembly conveyor line that she should see an coffee machine technician because she reported episodes of kaleidoscope vision that have occurred over the past year generally at night when she is watching TV. It affects both eyes. There is no pain or headache with it. No loss of vision. Vision always normalizes afterwards. ROS: Constitutional: No unexplained weight loss, fever, chills or night sweats. Eyes: No vision lost, blurriness, eye pain, eye discharge or redness. ENT: No hearing loss, ear pain, sinus pain or sore throat. Respiratory: No cough, sputum production or hemoptysis Cardiovascular: See HPI. No palpitations or pedal edema. Gastrointestinal: No anorexia, nausea, vomiting or diarrhea. No abdominal pain or blood in stool. Neurologic: No headache, dizziness, syncope Hematologic/Lymphatics: No bleeding or bruising. No painful lymph nodes. Skin: No rash or itching. Endocrine: No cold or heat intolerance. No polyuria or polydipsia. Physical exam: Constitutional: Alert, in no distress. Head: Normocephalic. Eyes: Pupils are equal, round and reactive to light. Extraocular muscles intact. Ear, Nose and Throat: Canals clear. TMs normal. Normal nasal mucosa. No nasal discharge. No oral lesions. Neck: Supple, Full range of motion. No lymphadenopathy. No palpable thyroid masses. Respiratory: Clear to auscultation. Cardiovascular: S1 S2 regular. No murmurs. I/ systolic murmur Gastrointestinal: Abdomen soft, non-tender, non-distended. Normal bowel sounds. No palpable masses. Neurologic: No focal neurological deficits. Psychiatric: Normal mood and affect [facility], [facility] Medical History (Updated 01/22/25 @ 16:29 by WALTER Quiles) Vision problem Asthma Allergic rhinitis Elevated platelet count Pure hypercholesterolemia Osteopenia WARD (dyspnea on exertion) Varicose veins of both legs with edema Varicose veins of ankle Chest pain Numbness in feet Esophageal dysmotility History of depression History of malignant neoplasm of cervix Screening for diabetes mellitus (DM) Heart murmur Tobacco use disorder Escobedo esophagus Positive colorectal cancer screening using Cologuard test Surgical History (Updated 12/05/24 @ 16:33 by John Paul Varela MD) Hx of colonoscopy History of esophagogastroduodenoscopy (EGD) S/P surgery on nasal septum History of tonsillectomy Family History (Updated 01/22/25 @ 14:13 by Mikayla Uribe MA) Unknown Family history of colon cancer Brother FHx: mental illness Substance abuse Sister Substance abuse Social History (Updated 01/22/25 @ 14:13 by Mikayla Uribe MA) Household Members: None Housing: House Are you a primary home health aide caregiver to a significant other at home: No Do you presently have visiting nurse or other home services: No Alcohol intake: current Patient Tobacco Use Status: Current everyday Tobacco user Cigarette Packs Per Day: 0.25 Years Smoked: 40 e-Cigarette/Vaping Use: Never Used Second Hand Smoke Exposure: No Substance Use Type: Marijuana service: No 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 1. Little interest or pleasure in doing things: several days 2. Feeling down, depressed, or hopeless: several days 3. Trouble falling or staying asleep, or sleeping too much: more than half the days 4. Feeling tired or having little energy: nearly every day 5. Poor appetite or overeating: not at all 6. Feeling bad about yourself - or that you are a failure or have let yourself or your family down: not at all 7. Trouble concentrating on things, such as reading the newspaper or watching television: several days 8. Moving or speaking so slowly that other people could have noticed. Or the opposite - being so fidgety or restless that you have been moving around a lot more than usual: not at all 9. Thoughts that you would be better off or of hurting yourself in some way: not at all Total score: 8 Depression Screening Interpretation: Positive Depression Screening Done: Yes 56237 - PHQ-9 Billing: Yes Source: Developed by Drs. Fracisco Edward, Klaudia Peters, Main Grant and colleagues, with an educational felipe from [employer]. Thrive Questionnaire Date Thrive assessed: 01/22/25 I am a: Patient What is your living situation today?: I have a place to live, but I am worried about losing it in the future Within the past 12 months, did the food you bought not last and you didn't have the money to get more?: Never true Within the past 12 months, did you worry whether your food would run out before you got money to buy more?: Sometimes True Do you have trouble paying for medicines?: No Do you have trouble getting transportation to medical appointments?: No Do you have trouble paying your heating and electricity bill?: Yes Do you have trouble taking care of your child, family member or friend?: No Do you have trouble with day-to-day activities such as bathing, preparing meals, shopping, managing finances, etc.?: Yes Are you currently unemployed and looking for a job?: No Are you interested in more education?: No Currently or been in a relationship where the following occur: I choose not to answer THRIVE Score: 3 AUDIT C Alcohol Use Questionnaire (AUDIT-C) 1. How often do you have a drink containing alcohol?: 2-4 times a month 2. How many drinks containing alcohol do you have on a typical day when you are drinking?: 1 or 2 3. How often do you have six or more drinks on one occasion?: Never Total Score: 2 Score Reviewed/Action Taken: No HAYDEN-7 AMB Questionnaire HAYDEN-7 Date HAYDEN - 7 assessed: 01/22/25 Feeling nervous, anxious, or on edge: 1 = Several days Not being able to stop or control worryin = Not at all Worrying too much about different things: 1 = Several days Trouble relaxin = Several days Being so restless that it is hard to sit still: 0 = Not at all Becoming easily annoyed or irritable: 1 = Several days Feeling afraid as if something awful might happen: 1 = Several days Total HAYDEN-7 score (0-4 normal; 5-9 mild; 10-14 moderate; 15-21 severe): 5 Source: Developed by Drs. Fracisco Edward, Klaudia Peters, Main Grant and colleagues, with an educational felipe from [employer]. HAYDEN-7 Assessment Billing HAYDEN-7 Assessment Tool: HAYDEN-7 Assessment 10055 Physical exam (Primary Care) Vital Signs: Last Vital Signs Temp 97.9 F 01/22/25 14:16 Pulse 97 01/22/25 14:16 BP 116/64 01/22/25 14:16 Pulse Ox 98 01/22/25 14:16 Oxygen Delivery Method Room Air 01/22/25 14:16 BMI result Body Mass Index 34.6 Tobacco/Smoking Status: Tobacco use Status Tobacco use date assessed 01/22/25 01/22/25 14:18 Patient Tobacco Use Status Current everyday Tobacco 01/22/25 14:13 e-Cigarette/Vaping Use Never Used 01/22/25 14:13 PHQ-9: PHQ-9 Score PHQ-9: Total score 8 01/22/25 14:18 Depression Screening Interpretation: Positive Thrive Assessment: Date of Thrive Assessment Date Thrive assessed 01/22/25 01/22/25 14:18 Currently or been in a relationship where the following occur: I choose not to answer Coding Level of Care Code Est Pt Level 4 (25504) Complex EM visit Add On G2211 Diagnoses Pure hypercholesterolemia E78.00 Elevated platelet count R79.89 Varicose veins of both lower extremities with inflammation I83.11; I83.12 Chest pain R07.9 Escobedo esophagus K22.70 Allergic rhinitis J30.9 Asthma J45.909 Vision problem H54.7 Additional Codes HAYDEN-7 Assessment Billing - HAYDEN-7 Assessment Tool: HAYDEN-7 Assessment 67544 ([id number]) PHQ-9 - 20106 - PHQ-9 Billing: Yes ([id number]) Assessment & Plan Assessment & Plan (1) Pure hypercholesterolemia: Code(s): E78.00 - Pure hypercholesterolemia, unspecified Category: Medical Plan: Patient declines medications, and she has significantly lowered her LDL cholesterol with lifestyle modifications. We will continue to monitor for now. We discussed that elevated cholesterol is believed to be a risk factor for cardiovascular disease. Reviewed Mediterranean diet. (2) Elevated platelet count: Code(s): R79.89 - Other specified abnormal findings of blood chemistry Category: Medical Plan: Followed by hematology. This has downtrended. Continue baby aspirin. No iron-deficiency. (3) Varicose veins of both lower extremities with inflammation: Code(s): I83.11 - Varicose veins of right lower extremity with inflammation; I83.12 - Varicose veins of left lower extremity with inflammation Category: Medical Plan: Continue management per vascular specialist. She will call them to follow up on the ultrasound. (4) Chest pain: Code(s): R07.9 - Chest pain, unspecified Category: Medical Plan: Atypical chest pain reported by the patient for years. Stress test and echocardiogram reassuring. I suspect this is related to diagnosis of severe GERD and esophageal dysmotility. Monitor. (5) Escobedo esophagus: Code(s): K22.70 - Escobedo's esophagus without dysplasia Category: Medical Plan: Continue PPI and management per Gastroenterology. She will be repeating EGD. (6) Allergic rhinitis: Code(s): J30.9 - Allergic rhinitis, unspecified Category: Medical Plan: Christine 180 mg daily as needed for allergy symptoms. (7) Asthma: Code(s): J45.909 - Unspecified asthma, uncomplicated Category: Medical Plan: Albuterol 2 puffs every 4 hours as needed for coughing, wheezing or shortness of breath. (8) Vision problem: Code(s): H54.7 - Unspecified visual loss Category: Medical Plan: Possible ocular migraine. Reviewed signs and symptoms warranting ER evaluation. Refer to Ophthalmology. Orders: Referrals Ophthalmology Referral H54.7 - Unspecified visual loss Medications: New fexofenadine (Christine Allergy) 180 mg PO DAILY PRN 90 tabs 3RF allergy symptoms Changed From albuterol sulfate 90 mcg/actuation (Ventolin HFA) 2 puffs inhalation Q6H PRN Yes To albuterol sulfate 90 mcg/actuation (Ventolin HFA) 2 puffs inhalation Q4H PRN 8.5 grams 0RF Yes
--- OUTSIDE RECORDS SUMMARY | 2025-01-22 14:05 | XMS_ITS | Clinical Summary ---
Author Organization [facility] Address [address] [place] [address] Care Team Providers Care Preschool Lead Teacher Name Role Phone Chris Carias Primary Care Provider [phone] Source Comments PLEASE NOTE, if this patient [...] patient normal results will be released to [employer] portal. -Discussed with patient potential of repeating [...] (#1) 01/29/2024 FIT/gFOBT 02/18/2024 02/17/2023, 02/04, 04/29/2022 [id number] ( - season) 2024 Imm-Influenza (#1) 2024 [...] PDT) COLOGUARD RESULT REPORTABLE Positive( A) Negative [employer] [facility] [employer] [facility] (CLIA #:[id number]) Comment: POSITIVE TEST RESULT. A positive Cologuard [...] (Lakeshia Brandt al, N Engl J Med 2014;370(14):7084-7786.) Cologuard may produce a false negative or false positive result (no colorectal cancer or precancerous polyp present at colonoscopy follow up). A negative Cologuard test result does not guarantee the absence of CRC or advanced adenoma (pre-cancer). The current Cologuard screening interval is every 3 years. ([place] Cancer Society and U.S. Multi-Society Task Force). Cologuard performance data in a 10,000 patient pivotal study using colonoscopy as the reference method can be accessed at the following location: www.Catheter Connections/results. Additional description of the Cologuard test process, warnings and precautions can be found at www.cologuard.com. Stool Stool specimen / Unknown 02/17/2023 1:00 AM PDT 02/18/2023 3:18 PM PDT [facility] DO LAB BODY FLUIDS AND STOOLS AMB ULATORY Final Result [employer] [facility] [employer] [facility] [address] [place] [address], [facility] [address] CLIA [id number] [place] [address], [employer] [facility] [employer] [facility] (CLIA #:[id number]) [address] [place] [address] * HIV 1/2 AG & AB W/RFLX (4TH GEN) [F - P] (11/17/2021 8:46 AM PDT) HIV AG/AB, 4TH GEN NON-REACTI VE NON-REACT CONCHA 11/18/2021 1:13 PM PDT [facility] Blood Blood / Unknown 11/17/2021 [...] . For additional information please refer to http://education.TaskRabbit/faq/KAT110 (This link is being provided for informational/ educational purposes only.) . . The performance of this assay has not been clinically validated in patients less than 2 years old. . Manuela Alarcon NP LAB - BLOOD DRAW Final Result Performing Organization Address City/State/[facility] Co de Phone Number [facility] [place] [address] [place] [address], [facility] [address] [address] * HEMOGLOBIN, GLYCOSYLATED (A1C) (11/17/2021 8:43 AM PDT) HEMOGLOBIN A1C 5.5 <5.7 % of total Hgb 11/18/2021 5:03 AM PDT [facility] [place] Blood Blood / Unknown 11/17/2021 8 :43 AM PDT Narrative [facility] [place] - 11/20/2021 10:18 AM PDT FASTING:YES For [...] of diabetes in children. . According to [place] Diabetes Association (ADA) guidelines, hemoglobin A1c <7.0% represents optimal control in non- diabetic patients. Different metrics may apply to specific patient populations. Standards of Medical Care in Diabetes(ADA). . us Manuela Alarcon NP LAB - BLOOD DRAW Edited Resul t - Final [facility] [address] [place] [address], [facility] [address] [place] [address] * (ABNORMAL) LIPID PANEL (11/17/2021 8:43 AM [...] LDL-C. Pancho DOUGLAS et al. YEIMY. 2013;310(19): 9722-0227 (http://education.[employer].VirtualScopics/faq/GQB397) For patients with diabetes plus 1 major ASCVD risk factor, treating to a non-HDL-C goal of <100 mg/dL (LDL-C of <70 mg/dL) is considered a therapeutic option. us Manuela Alarcon NP LAB - BLOOD DRAW Edited Resul t - Final [employer] [facility] [place] [address] [place] [address], [facility] [place] [address] [place] [address] from Last 3 Months or Most Recently Relevant to Health Maintenance Insurance [facility] Care Teams Preschool Lead Teacher Relationship Specialty Start Date End Date Chris Carias PA [address] [place] [address] PCP - General FAMILY MEDICINEWALTER 10/29/22
--- OUTSIDE RECORDS SUMMARY | 2025-01-22 14:06 | XMS_ITS | Clinical Summary ---
Author Organization [facility] Address [address] [place] [phone] Phone Care Team Providers Care Cheese Weigher Name Role Phone Mayo Pablo NP Primary Care Provider [phone] Allergies Active Allergy Reactions Criticality Noted Date Comments Azithromycin GI intolerance 10/08/2024 Medical History Medical History Date Comments Cancer ([facility] V24, [facility] V28) Hypertension Social History Tobacco Use [...] complete this topic Insurance MEDICAID - [place] [facility] MEDICARE ADVANTAGE Care Teams Cheese Weigher Relationship Specialty Start Date End Date Mayo Pablo NP [address] [place] [id number] PCP - General Family Medicine 10/08/24
[2025-01-22 14:16] VITALS: BP 116/64; PULSE 97; TEMP 36.6; O2SAT 98; BMI 34.6
== END 2025-01-22 14:40 | disposition home or self-care (01) ==
LOC: HO.HMCFM 14:02
PROVIDERS: PCP Physician Assistant Medical; Visit Provider Physician Assistant Medical
DX: E78.00 Pure hypercholesterolemia, unspecified (principal); R79.89 Other specified abnormal findings of blood chemistry; I83.11 Varicose veins of right lower extremity with inflammation; I83.12 Varicose veins of left lower extremity with inflammation; R07.9 Chest pain, unspecified; K22.70 Barrett's esophagus without dysplasia; J30.9 Allergic rhinitis, unspecified; J45.909 Unspecified asthma, uncomplicated; H54.7 Unspecified visual loss

== ENCOUNTER 2025-02-09 12:17 | Day surgery (SDC) | payer MEDICARE, MEDICAID, SELFPAY ==
--- OUTSIDE RECORDS SUMMARY | 2025-01-25 11:35 | XMS_ITS | Clinical Summary ---
Author Organization [facility] Address [address] [place] [phone] Phone Care Team Providers Care Church Communications Administrator Name Role Phone Mayo Pablo NP Primary Care Provider [phone] Allergies Active Allergy Reactions Criticality Noted Date Comments Azithromycin GI intolerance 10/08/2024 Medical History Medical History Date Comments Cancer ([facility] V24, [facility] V28) Hypertension Social History Tobacco Use Types [...] complete this topic Insurance MED[place]ID - [place] [facility] MEDICARE ADVANTAGE Care Teams Church Communications Administrator Relationship Specialty Start Date End Date Mayo Pablo NP [address] [place] [id number] PCP - General Family Medicine 10/08/24
--- OUTSIDE RECORDS SUMMARY | 2025-01-25 11:35 | XMS_ITS | Clinical Summary ---
Author Organization [facility] Address [address] [place] [address] Care Team Providers Care Studio Sales Associate Name Role Phone Chris Carias Primary Care Provider [phone] Source Comments PLEASE NOTE, if this patient [...] patient normal results will be released to [employer] portal. -Discussed with patient potential of repeating [...] (#1) 01/29/2024 FIT/gFOBT 02/18/2024 02/17/2023, 02/04, 04/29/2022 [id number] ( - season) 2024 Imm-Influenza (#1) 2024 [...] PDT) COLOGUARD RESULT REPORTABLE Positive( A) Negative [facility] (CLIA #:[id number]) Comment: POSITIVE TEST RESULT. A positive Cologuard [...] (Lakeshia Brandt al, N Engl J Med 2014;370(14):3446-9362.) Cologuard may produce a false negative or false positive result (no colorectal cancer or precancerous polyp present at colonoscopy follow up). A negative Cologuard test result does not guarantee the absence of CRC or advanced adenoma (pre-cancer). The current Cologuard screening interval is every 3 years. ([place] Cancer Society and U.S. Multi-Society Task Force). Cologuard performance data in a 10,000 patient pivotal study using colonoscopy as the reference method can be accessed at the following location: www.OBOOK/results. Additional description of the Cologuard test process, warnings and precautions can be found at www.cologuard.com. Stool Stool specimen / Unknown 02/17/2023 1:00 AM PDT 02/18/2023 3:18 PM PDT [facility] DO LAB BODY FLUIDS AND STOOLS AMB ULATORY Final Result [facility] [address] [place] [address], [facility] [address] CL[address] [id number] [place] [address], [facility] (CLIA #:[id number]) [address] [place] [address] * HIV 1/2 AG & AB W/RFLX (4TH GEN) [F - P] (11/17/2021 8:46 AM PDT) HIV AG/AB, 4TH GEN NON-REACTI VE NON-REACT CONCHA 11/18/2021 1:13 PM PDT [facility] Blood Blood / Unknown 11/17/2021 [...] . For additional information please refer to http://education.Bringrr/faq/HRE493 (This link is being provided for informational/ educational purposes only.) . . The performance of this assay has not been clinically validated in patients less than 2 years old. . Manuela Alarcon NP LAB - BLOOD DRAW Final Result Performing Organization Address City/State/[facility] Co de Phone Number [facility] [place] [id number] [place] [address], [facility] [address] [address] * HEMOGLOBIN, GLYCOSYLATED (A1C) (11/17/2021 8:43 AM PDT) HEMOGLOBIN A1C 5.5 <5.7 % of total Hgb 11/18/2021 5:03 AM PDT [facility] [place] Blood Blood / Unknown 11/17/2021 8 :43 AM PDT Narrative [facility] [place] - 11/20/2021 10:18 AM PDT FASTING:YES For [...] of diabetes in children. . According to [place] Diabetes Association (ADA) guidelines, hemoglobin A1c <7.0% represents optimal control in non- diabetic patients. Different metrics may apply to specific patient populations. Standards of Medical Care in Diabetes(ADA). . us Manuela Alarcon NP LAB - BLOOD DRAW Edited Resul t - Final [facility] [address] [address], [facility] [address] [place] [address] * (ABNORMAL) LIPID PANEL (11/17/2021 8:43 AM [...] LDL-C. Pancho DOUGLAS et al. YEIMY. 2013;310(19): 1005-2785 (http://education.Kahnoodle.Operax/faq/KTP920) For patients with diabetes plus 1 major ASCVD risk factor, treating to a non-HDL-C goal of <100 mg/dL (LDL-C of <70 mg/dL) is considered a therapeutic option. us Manuela Alarcon NP LAB - BLOOD DRAW Edited Resul t - Final [facility] [place] [address] [place] [address], [facility] [place] [address] [facility] [place] [address] from Last 3 Months or Most Recently Relevant to Health Maintenance Insurance [facility] Care Teams Studio Sales Associate Relationship Specialty Start Date End Date Chris Carias PA [address] [place] [address] PCP - General FAMILY MEDICINEWALTER 10/29/22
--- NOTE | 2025-02-08 09:54 | P.CONAN_ITS ---
Documented by User: Qian Cunningham NP 02/08/25 09:56 HPI - Anesthesia Eval Consult details Narrative: 64yo F for Upper Endoscopy s/p EGD and [place] 11/2024 Recent echo/stress by PCP for atypical CP were OK PMFSH Active Problems Active Problems: All Active Problems Vision problem (Acute) Asthma (Acute) Allergic rhinitis (Acute) Thrombocytosis (Acute) Hepatitis C antibody detected (Acute) [place] grade D esophagitis (Acute) Elevated platelet count (Acute) Pure hypercholesterolemia (Acute) Osteopenia (Acute) Varicose veins of both lower extremities with inflammation (Acute) WARD (dyspnea on exertion) (Acute) Varicose veins of both legs with edema (Acute) Varicose veins of ankle (Acute) Chest pain (Acute) Numbness in feet (Acute) Esophageal dysmotility (Acute) History of depression (Acute) History of malignant neoplasm of cervix (Acute) Heart murmur (Acute) Tobacco use disorder (Acute) Escobedo esophagus (Acute) Positive colorectal cancer screening using Cologuard test (Acute) GERD (gastroesophageal reflux disease) (Acute) Past Medical History Medical History (Updated 01/22/25 @ 16:29 by WALTER Quiles) Vision problem Asthma Allergic rhinitis Elevated platelet count Pure hypercholesterolemia Osteopenia WARD (dyspnea on exertion) Varicose veins of both legs with edema Varicose veins of ankle Chest pain Numbness in feet Esophageal dysmotility History of depression History of malignant neoplasm of cervix Screening for diabetes mellitus (DM) Heart murmur Tobacco use disorder Escobedo esophagus Positive colorectal cancer screening using Cologuard test Family History Family History (Updated 01/22/25 @ 14:13 by Mikayla Uribe MA) Unknown Family history of colon cancer Brother FHx: mental illness Substance abuse Sister Substance abuse Family history of problems with anesthesia: No Surgical History Surgical History (Updated 12/05/24 @ 16:33 by John Paul Varela MD) Hx of colonoscopy History of esophagogastroduodenoscopy (EGD) S/P surgery on nasal septum History of tonsillectomy History of Problems with Anesthesia: No Social History Social History (Updated 01/22/25 @ 14:13 by Mikayla Uribe MA) Household Members: None Housing: House Are you a primary dog daycare provider to a significant other at home: No Do you presently have visiting nurse or other home services: No Alcohol intake: current Alcohol intake frequency: former alcohol drinker Patient Tobacco Use Status: Current everyday Tobacco user Tobacco use type: Cigarette Cigarette Packs Per Day: 0.25 Cigarettes Per Day: 2 Years Smoked: 40 e-Cigarette/Vaping Use: Never Used Second Hand Smoke Exposure: No Use of substances other than those prescribed or required for medical reasons: Yes Substance Use Type: Marijuana Substance Use Frequency: Monthly Have you been hit, kicked, punched, or otherwise hurt by someone within the past year? 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.) Current occupational exposures/hazards: No Cognitive needs: No Hearing needs: Yes (Need ears flushed.) Vision needs: No Meds Allergies Allergy/AdvReac Type Severity Reaction Status Date / Time azithromycin AdvReac Intermediate Nausea Verified 01/22/25 14:07 colonoscopy prep AdvReac Intermediate Nausea Uncoded 01/22/25 14:07 Home Medications ?Medication ?Instructions ?Recorded ?Confirmed ?Last Taken ?Type calcium carb and lactate 200 tab PO 01/22/25 Unknown History mg-vitamin D3 6.25 mcg (250 unit) tablet Exam Pertinent Lab Results Pertinent Lab Results: Laboratory Tests 12/05/24 01/22/25 15:48 11:02 WBC 6.8 Hgb 14.8 Hct 46.0 Plt Count 458 H Sodium 141 Potassium 4.7 Chloride 105 Carbon Dioxide 27 BUN 13 Creatinine 0.69 Narrative Narrative: ECHO 07/2024 Conclusions: - Essentially normal study Exercise Stress 10/2024 Protocol: ALEXANDER Max HR: 136 BPM 87% of Pred: 155 BPM Max BP: 136/60 mmHG Max Work Load: 5.8 METS Exercise Stress Test with exercise 5 mins 21 secs of Alexander Protocol, reduced speed at stage 2 to 2.0 mph, achieving 87% MPHR, with reports of moderate SOB, no chest discomfort, without any arrythmias, with normotensive response to exercise. Without EKG chnages meeting criteria for ischemia. In recovery, breathing returned to baseline. Nuclear images pending. Test reviewed [facility] Dr. Velez. Assessment and Plan Assessment Anesthesia Assessment: Chart Reviewed Final Anesthetic Review Family History of Problems with Anesthesia: No History of Problems with Anesthesia: No Documented by User: Paris Parra MD 02/09/25 13:12 [facility] Past Medical History Medical History (Updated 01/22/25 @ 16:29 by WALTER Quiles) Vision problem Asthma Allergic rhinitis Elevated platelet count Pure hypercholesterolemia Osteopenia WARD (dyspnea on exertion) Varicose veins of both legs with edema Varicose veins of ankle Chest pain Numbness in feet Esophageal dysmotility History of depression History of malignant neoplasm of cervix Screening for diabetes mellitus (DM) Heart murmur Tobacco use disorder Escobedo esophagus Positive colorectal cancer screening using Cologuard test Family History Family History (Updated 01/22/25 @ 14:13 by Mikayla Uribe MA) Unknown Family history of colon cancer Brother FHx: mental illness Substance abuse Sister Substance abuse Surgical History Surgical History (Updated 12/05/24 @ 16:33 by John Paul Varela MD) Hx of colonoscopy History of esophagogastroduodenoscopy (EGD) S/P surgery on nasal septum History of tonsillectomy Social History Social History (Updated 01/22/25 @ 14:13 by Mikayla Uribe MA) Household Members: None Housing: House Are you a primary dog daycare provider to a significant other at home: No Do you presently have visiting nurse or other home services: No Alcohol intake: current Alcohol intake frequency: former alcohol drinker Patient Tobacco Use Status: Current everyday Tobacco user Tobacco use type: Cigarette Cigarette Packs Per Day: 0.25 Cigarettes Per Day: 2 Years Smoked: 40 e-Cigarette/Vaping Use: Never Used Second Hand Smoke Exposure: No Use of substances other than those prescribed or required for medical reasons: Yes Substance Use Type: Marijuana Substance Use Frequency: Monthly Have you been hit, kicked, punched, or otherwise hurt by someone within the past year? 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.) Current occupational exposures/hazards: No Cognitive needs: No Hearing needs: Yes (Need ears flushed.) Vision needs: No Meds Allergies Allergy/AdvReac Type Severity Reaction Status Date / Time azithromycin AdvReac Intermediate Nausea Verified 01/22/25 14:07 colonoscopy prep AdvReac Intermediate Nausea Uncoded 01/22/25 14:07 Home Medications ?Medication ?Instructions ?Recorded ?Confirmed ?Last Taken ?Type calcium carb and lactate 200 tab PO 01/22/25 Unknown History mg-vitamin D3 6.25 mcg (250 unit) tablet Exam Airway Mallampati Class: II TM Dist: >3cm Neck ROM: Full Denture: Upper Partial: Lower Heart: rrr Lungs: cta Assessment and Plan Assessment Anesthesia Assessment: Anesthesia Plan Discussed Final Anesthetic Review NPO: Yes ASA Class: III Final Preanesthetic Review: No Changes in Pt Med Stat, Meds/Allgs Chart Reviewed and Consent Obtained/Reviewed Patient Risk: Intermediate Procedure Risk: Intermediate Anesthetic Plan Anesthetic Plan: MAC: Disposition: Standard PACU
--- NOTE | 2025-02-09 12:19 | MHC.SHP ---
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,gerd Details of Present Illness: Elevated platelet count Pure hypercholesterolemia Osteopenia WARD (dyspnea on exertion) Varicose veins of both legs with edema Varicose veins of ankle Chest pain Numbness in feet Esophageal dysmotility History of depression History of malignant neoplasm of cervix Screening for diabetes mellitus (DM) Heart murmur Tobacco use disorder Escobedo esophagus Positive colorectal cancer screening using Cologuard test Surgical History (Updated 11/27/24 @ 15:17 by WILFRED Veloz) Hx of colonoscopy History of esophagogastroduodenoscopy (EGD) S/P surgery on nasal septum History of tonsillectomy Allergies: Allergies Allergy/AdvReac Type Severity Reaction Status Date / Time azithromycin AdvReac Intermediate Nausea Verified 01/22/25 14:07 colonoscopy prep AdvReac Intermediate Nausea Uncoded 01/22/25 14:07 Review of Systems Review of Systems Comment: Ten point ROS negative Exam Exam Comment: Gen appear: No acute distress HEENT: no icterus Chest: No overt resp distress Abd: soft, nontender, nondistended Psych: Stable affect, answering questions appropriately Neuro: A/Ox3 noted to move all extremities spontaneously Ext: no peripheral edema Plan Diagnosis/Plan: Unchanged I have reviewed the history and physical and performed a pertinent physical examination on my patient. No changes have occurred unless specified. Time Spent With Patient Time: Total time managing care of this patient today ____ minutes.
[2025-02-09 12:58] VITALS: BP 105/5; PULSE 70; RESP 14; TEMP 36.7; O2SAT 96; BMI 32.7
[2025-02-09] MEDS: Lactated Ringers 1,000 ML 100 ML IVCONT (13:12)
[2025-02-09 14:07] VITALS: BP 118/50; PULSE 74; RESP 16; TEMP 36.6; O2SAT 94
--- NOTE | 2025-02-09 14:17 | P.OP_ITS ---
Operative Note Operative Note Date of Service: 02/09/25 Narrative: Procedure: Esophagogastroduodenoscopy Endoscopist: Maxine Gill MD Indication: Grade D esophagitis, Hx of BE Anesthesia Provider: Dr Paris Wright Anesthesia Type: MAC ?? EGD Procedure:?? The procedure, indications, preparation and potential complications were reviewed with the patient, who indicated understanding and gave written informed consent to proceed. A physical exam was performed. The endoscope was introduced through the mouth, and advanced to the second part of duodenum. The mucosa was carefully examined on slow withdrawal of the endoscope. The patient tolerated the procedure well. There were no immediate complications.? ? EGD Findings:? * Esophagus:? Esophagitis was again ordered in the lower esophagus from 25-28 cm, but improved from before. Spontaneous oozing noted from the esophagitis as well as villiform circumferential nodular mucosa at GE junction 28 cm. No ulceration noted on HDWL and NBI exam. Cold forceps biopsies were taken from the nodule. Irregular squamocolumnar mucosa was noted at 25 cm (above esophagitis). Cold forceps biopsies were taken for histology. At the end of procedure, hemo spray was applied. * Stomach:? Normal mucosa was noted in the stomach. Retroflexion was performed in the cardia with Hill grade 3 hiatal hernia. * Duodenum:? Normal mucosa was noted in the whole of the examined duodenum. EGD Impressions:? * Grade D esophagitis (biopsy) * GE junction nodule r/o verma's (biopsy) * Normal stomach * Normal duodenum Recommendations:?? * Follow-up path results * Given nodular appearance, will likely need BET - may need referral for band EMR +/- RFA * Cont high dose PPI Above has been reviewed with the patient.
[2025-02-09 14:22] VITALS: BP 123/64; PULSE 70; RESP 16; O2SAT 99
[2025-02-09 14:37] VITALS: BP 111/58; PULSE 65; RESP 20; TEMP 36.6; O2SAT 96
== END 2025-02-09 15:16 | disposition home or self-care (01) ==
PROVIDERS: PCP Physician Assistant Medical; Visit Provider Internal Medicine
PROC: 0DJ08ZZ Inspection of Upper Intestinal Tract, Via Natural or Artificial Opening Endoscopic (ICD-10-PCS; CPT 43235; principal; 2025-02-09 14:00)
DX: K20.80 Other esophagitis without bleeding (principal); Z83.79 Family history of other diseases of the digestive system; K22.82 Esophagogastric junction polyp; K21.9 Gastro-esophageal reflux disease without esophagitis; K44.9 Diaphragmatic hernia without obstruction or gangrene; D47.3 Essential (hemorrhagic) thrombocythemia; E78.00 Pure hypercholesterolemia, unspecified; R20.0 Anesthesia of skin; Z85.41 Personal history of malignant neoplasm of cervix uteri; Z79.899 Other long term (current) drug therapy; Z88.1 Allergy status to other antibiotic agents; Z88.8 Allergy status to other drugs, medicaments and biological substances; F17.210 Nicotine dependence, cigarettes, uncomplicated; Z98.890 Other specified postprocedural states
CPT/HCPCS: 43239; 88305; 88313; 88342; J2003; J2250; J2704

== ENCOUNTER → 2025-02-09 12:17 | Outpatient (BNV) | payer MEDICARE, MEDICAID, SELFPAY | PROVIDERS: PCP Physician Assistant Medical; Visit Provider Internal Medicine | DX: K20.90 Esophagitis, unspecified without bleeding (principal); K63.89 Other specified diseases of intestine | CPT/HCPCS: 43239 ==

== ENCOUNTER 2025-03-07 08:24 | Outpatient (AMB) | payer MEDICARE, MEDICAID, SELFPAY ==
--- NOTE | 2025-03-07 08:25 | A.OFFVIS_ITS ---
Intake Visit Reasons: s/p egd Intake Note: Molly presents as a telehealth to go over results to her EGD that she just had - states she has no concerns just some issues with phleghm at times. Allergies azithromycin Adverse Reaction (Intermediate, Verified 03/07/25 08:25) Nausea colonoscopy prep Adverse Reaction (Intermediate, Uncoded 03/07/25 08:25) Nausea HPI Comments Details: 64 y.o F with PMH of GERD, BE, smoker who is here to establish care. Pt had a cologuard test in February 2023 which was POSITIVE however she then moved from [place] May 2023 before colo could be done (prev GI Dr Saw Sparks in [facility]). Once she estabished care with local PCP winter 2022 a referral was generated but a colo could not take place due to multiple barriers. Was able to switch insurance and PCP again earlier this year and is now here for follow up colonoscopy. Pt herself reports having a change in bowel habits and occ blood in stool. It is unclear why a cologuard was ordered and not a diagnostic colonoscopy for these sx. Pt also has hx of hiatal hernia and reported BE and at one point was getting EGDs every 1-2 years. Takes pantoprazole 40 once a day. Last endoscopy: EGD/colo 2019 - BE (pt told was improving), no polyps. Fam hx of CRC in pat grandfather in his 70s. Sister with UC diagnosed in her 20s with surgical history. Pt smokes 2-4 cigs/day prev 1PPD x 40 years. No etOH use. Occ takes ibuprofen. PCP notes reviewed - also ? of HCV. Pt reports having an admission in the hospital for yellow eyes in 80s which was determined to be of unknown cause. 11/08/24: 1. Grade D esophagitis 2. Hiatal hernia 3. Normal stomach 4. Normal duodenum 5. x2 right colon AVMs 6. Diverticulosis 7. Internal and external hemorrhoids 11/27/24: Here for follow up. No active issues. Was taking omeprazole once daily and advised to increase to BID x 8 weeks. Pt also aware to repeat colo in 5 years. 02/09/25: EGD Esophagus:? Esophagitis was again ordered in the lower esophagus from 25-28 cm, but improved from before. Spontaneous oozing noted from the esophagitis as well as villiform circumferential nodular mucosa at GE junction 28 cm. No ulceration noted on HDWL and NBI exam. Cold forceps biopsies were taken from the nodule. Irregular squamocolumnar mucosa was noted at 25 cm (above esophagitis). Cold forceps biopsies were taken for histology. At the end of procedure, hemo spray was applied. Path: A. GE junction, nodule: Polypoid inflamed and eroded squamocolumnar mucosa with reactive changes; no intestinal metaplasia or dysplasia identified. B. Esophagus, 25 cm, biopsy: Eroded and ulcerated squamous mucosa; no atypia or fungi identified 03/07/25: Here as televisit for post procedure follow up. No acute GI sx. Reports occ forgets to take BID dosing of pantoprazole. EGD findings and path reviewed. Will need another EGD after esophagitis has healed up for accurate assessment of underlying mucosa. [facility], [facility] Medical History Vision problem Asthma Allergic rhinitis Elevated platelet count Pure hypercholesterolemia Osteopenia WARD (dyspnea on exertion) Varicose veins of both legs with edema Varicose veins of ankle Chest pain Numbness in feet Esophageal dysmotility History of depression History of malignant neoplasm of cervix Screening for diabetes mellitus (DM) Heart murmur Tobacco use disorder Escobedo esophagus Positive colorectal cancer screening using Cologuard test Surgical History Hx of colonoscopy History of esophagogastroduodenoscopy (EGD) S/P surgery on nasal septum History of tonsillectomy Family History Unknown Family history of colon cancer Brother FHx: mental illness Substance abuse Sister Substance abuse Social History Household Members: None Housing: House Are you a primary medicare biller to a significant other at home: No Do you presently have visiting nurse or other home services: No Alcohol intake: current Alcohol intake frequency: former alcohol drinker Patient Tobacco Use Status: Current everyday Tobacco user Tobacco use type: Cigarette Cigarette Packs Per Day: 0.25 Years Smoked: 40 e-Cigarette/Vaping Use: Never Used Second Hand Smoke Exposure: No Substance Use Type: Marijuana service: No 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, 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.) Current occupational exposures/hazards: No Cognitive needs: No Hearing needs: Yes (Need ears flushed.) Vision needs: No Review of Systems Const All systems reviewed & are unremarkable except as noted in HPI and below Physical Exam Vital Signs: phone visit Telehealth Telehealth Telehealth Platform: Telephone Location of provider rendering services: practice address Location of patient: address on file Patient Identification confirmed using: Name, : Yes Telehealth method: voice only Patient verbally consented to treatment: Yes Patient verbally consented to billing insurance company: Yes Patient informed of any privacy concerns related to visit: Yes Minutes spent on Phone/Video with Pt.: 14 Assessment & Plan Assessment & Plan (1) [place] grade D esophagitis: Code(s): K20.80 - Other esophagitis without bleeding Category: Medical (2) GERD (gastroesophageal reflux disease): Code(s): K21.9 - Gastro-esophageal reflux disease without esophagitis Category: Medical Qualifiers: Esophagitis presence: without esophagitis Qualified Code(s): K21.9 - Gastro-esophageal reflux disease without esophagitis (3) Escobedo esophagus: Code(s): K22.70 - Escobedo's esophagus without dysplasia Category: Medical Plan Reviewed with the patient that an accurate assessment of underlying Escobedo's disease can not be performed with ongoing active esophagitis. Strongly recommended to continue twice a day dosing and avoid missed/skip doses to promote healing of esophagitis. We will also switch to esomeprazole and add sucralfate. Plan: -stop Pantoprazole -start esomeprazole 20 mg twice a day -start sucralfate 1 g t.i.d. for 2 weeks -repeat EGD in 2 months Follow up after egd Medications: New esomeprazole magnesium 20 mg PO BID 180 caps 1RF 90 days sucralfate 1 g PO TID 42 tabs 0RF 14 days Coding Level of Care Code Tele Est Pt Level 4 (57199) Diagnoses [place] grade D esophagitis K20.80 Gastroesophageal reflux disease without esophagitis K21.9 Esophagitis presence: without esophagitis Escobedo esophagus K22.70
--- OUTSIDE RECORDS SUMMARY | 2025-03-07 08:26 | XMS_ITS | Clinical Summary ---
Author Organization [facility] Address [address] [place] [phone] Phone Care Team Providers Care Bid Writer Name Role Phone Mayo Pablo NP Primary Care Provider [phone] Allergies Active Allergy Reactions Criticality Noted Date Comments Azithromycin GI intolerance 10/08/2024 Medical History Medical History Date Comments Cancer ([facility] V24, [facility] V28) Hypertension Social History Tobacco [...] 90 10/08/2024 11:10 PM EST Temperature 37 C (98.6 F) 10/08/2024 11:10 PM EST Respiratory Rate 17 [...] Vaccine ( - 2023-2 5 season) 2024 Depression Screening [...] complete this topic Insurance [place] - [place] [facility] MEDICARE ADVANTAGE Care Teams Bid Writer Relationship Specialty Start Date End Date Mayo Pablo NP [address] [place] [id number] PCP - General Family Medicine 10/08/24
--- OUTSIDE RECORDS SUMMARY | 2025-03-07 08:26 | XMS_ITS | Clinical Summary ---
Author Organization [facility] Address [address] [place] [address] Care Team Providers Care Stoker Erector And Servicer Name Role Phone Chris Carias Primary Care Provider [phone] Source Comments PLEASE NOTE, if this patient [...] patient normal results will be released to [employer] portal. -Discussed with patient potential of [...] 07/13/2019 Retrosternal pain 07/13/2019 Chronic hepatitis C (CMS & HHS-HCC) 07/13/2019 Assessment & Plan (07/16/2021 10:53 AM [...] 80 01/29/2023 9:38 AM PDT Temperature 36.6 C (97.9 F) 01/29/2023 9:38 AM PDT Respiratory Rate 16 12/02/2021 4:00 PM PDT [...] - Ri sk 2-dose series) 1978 Imm-Pneumococcal 50+ (1 of 2 - PCV) 1978 Breast Cancer Screening (Mammogram) 1999 CT Colonography 2004 Colonoscopy 2004 Flexible Sigmoidoscopy 2004 Imm-Zoster, Recombinant (1 of 2) 2009 Imm-Hepatitis B (1 of 3 - Ri sk 3-dose series) 2019 Colorectal Cancer Screening 02/18/2023 Depression Monitoring 05/01/2023 01/29/2023 Hypertension Screening (#1) 01/29/2024 FIT/gFOBT 02/18/2024 02/17/2023, 02/04, 04/29/2022 [id number] ( - season) 2024 Bone Density Screening 2024 Falls Prevention 2024 Alcohol and Drug Screen 09/06/2024 12/02/2021 Diabetes Screening 11/17/2024 11/17/2021, 0 11/17/2021, 07/24/2019, Additional history exists Imm-Influenza (Season Ended) 2025 Fecal DNA 02/17/2026 02/17/2023, 02/04, 02/17/2023 Lipid [...] PDT) COLOGUARD RESULT REPORTABLE Positive( A) Negative [facility] (CLIA #:[id number]) Comment: POSITIVE TEST RESULT. A positive Cologuard result should be followed with a colonoscopy or visual examination of the colon. The normal value (reference range) for this assay is negative. TEST DESCRIPTION: Composite algorithmic analysis of stool DNA-biomarkers with hemoglobin immunoassay. Quantitative values of individual biomarkers are not [...] screened with both Cologuard and colonoscopy. (Lakeshia Fang et al, N Engl J Med 2014;370(14):9750-6949.) Cologuard may produce a false negative or false positive result (no colorectal cancer or precancerous polyp present at colonoscopy follow up). A negative Cologuard test result does not guarantee the absence of CRC or advanced adenoma (pre-cancer). The current Cologuard screening interval is every 3 years. ([place] Cancer Society and U.S. Multi-Society Task Force). Cologuard performance data in a 10,000 patient pivotal study using colonoscopy as the reference method can be accessed at the following location: www.Training Intelligence.pyco/results. Additional description of the Cologuard test process, warnings and precautions can be found at www.cologuard.pyco. Stool Stool specimen / Unknown 02/17/2023 1:00 AM PDT 02/18/2023 3:[address] [facility] DO LAB BODY FLUIDS AND STOOLS AMB ULATORY Final Result [facility] [address] [place] [address], [facility] [address] CLIA [id number] [place] [address], [facility] (CLIA #:[id number]) [address] [place] [address] * HIV 1/2 AG & AB W/RFLX (4TH GEN) [F - P] (11/17/2021 8:46 AM PDT) HIV AG/AB, 4TH GEN NON-REACTI VE NON-REACT CONCHA 11/18/2021 1:13 PM PDT [facility] Blood Blood / Unknown 11/17/2021 [...] confidentiality may be protected by state law. If your state requires such protection, then the state law prohibits you from making any further disclosure of the information without the specific written consent of the person to whom it pertains, or as otherwise permitted by law. A general authorization for the release of medical or other information is NOT sufficient for this purpose. . For additional information please refer to http://education.Hippo Manager Software/faq/YXH308 (This link is being provided for informational/ educational purposes only.) . . The performance of this assay has not been clinically validated in patients less than 2 years old. . Manuela Alarcon NP LAB - BLOOD DRAW Final Result Performing Organization Address City/State/[facility] Co de Phone Number [facility] [address] [address], [facility] [address] [address] * HEMOGLOBIN, GLYCOSYLATED (A1C) (11/17/2021 8:43 AM PDT) HEMOGLOBIN A1C 5.5 <5.7 % of total Hgb 11/18/2021 5:03 AM PDT [facility] [place] Blood Blood / Unknown 11/17/2021 8 :43 AM PDT Narrative [facility] [place] - 11/20/2021 10:18 AM PDT FASTING:YES For the purpose of screening for the presence of diabetes: . <5.7% Consistent with the absence of diabetes 5.7-6.4% Consistent with increased risk for diabetes (prediabetes) > or =6.5% Consistent with diabetes . This assay result is consistent with a decreased risk of diabetes. . Currently, no consensus exists regarding use of hemoglobin A1c for diagnosis of diabetes in children. . According to [place] Diabetes Association (ADA) guidelines, hemoglobin A1c <7.0% represents optimal control in non- diabetic patients. Different metrics may apply to specific patient populations. Standards of Medical Care in Diabetes(ADA). . Manuela Alarcon NP LAB - BLOOD DRAW Edited Resul t - Final [facility] [address] [facility] [place] [address], [facility] [address] [place] [address] * (ABNORMAL) LIPID PANEL (11/17/2021 8:43 AM [...] Desirable range <100 mg/dL for primary prevention; <70 mg/dL for patients with CHD or diabetic patients with > or = 2 CHD risk factors. . LDL-C is now calculated using the Pancho-Joann calculation, which is a validated novel method providing better accuracy than the Friedewald equation in the estimation of LDL-C. Pancho SS et al. YEIMY. 2013;310(19): 7673-2636 (http://education.LightPole.pyco/faq/GKD150) For patients with diabetes plus 1 major ASCVD risk factor, treating to a non-HDL-C goal of <100 mg/dL (LDL-C of <70 mg/dL) is considered a therapeutic option. Manuela Alarcon NP LAB - BLOOD DRAW Edited Resul t - Final [facility] [place] [address] [facility] [place] [address], [facility] [place] [address] [place] [address] from Last 3 Months or Most Recently Relevant to Health Maintenance Insurance [employer] Care Teams Stoker Erector And Servicer Relationship Specialty Start Date End Date Chris Carias PA [address] [place] [address] PCP - General FAMILY MEDICINE, [place] 10/29/22
== END 2025-03-07 12:43 | disposition home or self-care (01) ==
LOC: HO.HGI 08:24
PROVIDERS: PCP Physician Assistant Medical; Visit Provider Internal Medicine
DX: K20.80 Other esophagitis without bleeding (principal); K21.9 Gastro-esophageal reflux disease without esophagitis; K22.70 Barrett's esophagus without dysplasia
CPT/HCPCS: 99214

== ENCOUNTER 2025-07-05 07:56 | Day surgery (SDC) | payer MEDICARE, MEDICAID, SELFPAY ==
--- OUTSIDE RECORDS SUMMARY | 2025-06-05 13:25 | XMS_ITS | Clinical Summary ---
Author Organization [facility] Address [address] [place] [address] Phone Care Team Providers Care President Of The [place] Name Role Phone Mayo Pablo NP Primary Care Provider [phone] Allergies Active Allergy Reactions Criticality Noted Date Comments Azithromycin GI intolerance 10/08/2024 Medical History Medical History Date Comments Cancer ([facility]24, [facility] V28) Hypertension Social History Tobacco Use [...] Years (1 of 2 - PCV) 1978 Cervical Cancer Screening: P ap Smear 1980 Zoster Vaccines (1 of 2) 2009 Breast Cancer Screening 05/19/2018 05/19/2016 Hepatitis B Vaccines (1 of 3 - Risk 3-dose series) 2019 RSV Immunization Adult Patients (1 - Risk 60-74 years 1-dose series) 2019 Depression Screening 09/06/2024 Falls Risk Assessment 10/08/2024 Hepatitis C Screening 10/08/2024 Medicare Annual Wellness Visit 10/08/2024 Osteoporosis Screening (Bone Density Screening) 10/08/2024 Social Influencers of Health Screening 10/08/2024 COVID-19 Vaccine (1 - 2023-2 5 season) 2025 Influenza Vaccine (#1) 2025 Colorectal Cancer Screening: FIT-DNA (Cologuard) 02/17/2026 [...] patient[id number] [place] Care Teams President Of The [place] Relationship Specialty Start Date End Date Mayo Pablo NP [address] [place] [address] PCP - General Family Medicine 10/08/24
--- OUTSIDE RECORDS SUMMARY | 2025-06-05 13:25 | XMS_ITS | Clinical Summary ---
Author Organization [facility] Address [address] [place] [address] Care Team Providers Care Aquatic Habitat Biologist Name Role Phone Chris Carias Primary Care Provider [phone] Source Comments PLEASE NOTE, if this patient [...] patient normal results will be released to [employer] portal. -Discussed with patient potential of repeating [...] 07/13/2019 Retrosternal pain 07/13/2019 Chronic hepatitis C 07/13/2019 Assessment & Plan (07/16/2021 10:53 AM [...] (#1) 01/29/2024 FIT/gFOBT 02/18/2024 02/17/2023, 02/04, 04/29/2022 Bone Density Screening 2024 Falls Prevention 2024 Alcohol and Drug Screen 09/06/2024 12/02/2021 Diabetes Screening 11/17/2024 11/17/2021, 0 11/17/2021, 07/24/2019, Additional history exists [id number] ( - season) 2025 Imm-Influenza (#1) 2025 Fecal DNA 02/17/2026 02/17/2023, 02/04, 02/17/2023 [...] PDT) COLOGUARD RESULT REPORTABLE Positive( A) Negative [email or web address] (CLIA #:[id number]) Comment: POSITIVE TEST RESULT. A positive Cologuard [...] (Lakeshia Brandt al, N Engl J Med 2014;370(14):4734-2446.) Cologuard may produce a false negative or false positive result (no colorectal cancer or precancerous polyp present at colonoscopy follow up). A negative Cologuard test result does not guarantee the absence of CRC or advanced adenoma (pre-cancer). The current Cologuard screening interval is every 3 years. ([place] Cancer Society and U.S. Multi-Society Task Force). Cologuard performance data in a 10,000 patient pivotal study using colonoscopy as the reference method can be accessed at the following location: www.Livefyre.com/results. Additional description of the Cologuard test process, warnings and precautions can be found at www.cologuard.com. Stool Stool specimen / Unknown 02/17/2023 1:00 AM PDT 02/18/2023 3:18 PM PDT [facility] DO LAB BODY FLUIDS AND STOOLS AMB ULATORY Final Result [email or web address] [address] [place] [address], [facility] 100 CLIA [id number] [place] [address], [email or web address] (CLIA #:[id number]) [address] [place] [address]. [place] [address] * HIV 1/2 AG & AB W/RFLX (4TH GEN) [F - P] (11/17/2021 8:46 AM PDT) HIV AG/AB, 4TH GEN NON-REACTI VE NON-REACT CONCHA 11/18/2021 1:13 PM PDT [facility] Blood Blood / Unknown 11/17/2021 [...] . For additional information please refer to http://education.Incentivyze.Powderhook/faq/JRP136 (This link is being provided for informational/ educational purposes only.) . . The performance of this assay has not been clinically validated in patients less than 2 years old. . Manuela Alarcon NP LAB - BLOOD DRAW Final Result Performing Organization Address City/[facility] Co de Phone Number [facility] [id number] [place] [address], [facility] [address] [address] * HEMOGLOBIN, GLYCOSYLATED (A1C) (11/17/2021 8:43 AM PDT) HEMOGLOBIN A1C 5.5 <5.7 % of total Hgb 11/18/2021 5:03 AM PDT [facility] [place] Blood Blood / Unknown 11/17/2021 8 :43 AM PDT Narrative [facility] [place] - 11/20/2021 10:18 AM PDT FASTING:YES For [...] of diabetes in children. . According to [place] Diabetes Association (ADA) guidelines, hemoglobin A1c <7.0% represents optimal control in non- diabetic patients. Different metrics may apply to specific patient populations. Standards of Medical Care in Diabetes(ADA). . us Manuela Alarcon NP LAB - BLOOD DRAW Edited Resul t - Final [facility] [address] [facility] [place] [address], [facility] [address] [facility] [facility] [place] [address] * (ABNORMAL) LIPID PANEL (11/17/2021 8:43 AM [...] . LDL-C is now calculated using the Pancho-David calculation, which is a validated novel method providing better accuracy than the Friedewald equation in the estimation of LDL-C. Pancho SS et al. YEIMY. 2013;310(19): 9409-1301 (http://education.Admaxim.Powderhook/faq/NEA536) For patients with diabetes plus 1 major ASCVD risk factor, treating to a non-HDL-C goal of <100 mg/dL (LDL-C of <70 mg/dL) is considered a therapeutic option. Arbert Nazareno [employer] LAB - BLOOD DRAW Edited Resul t - Final [facility] [place] [address] [facility] [place] [address], [facility] [place] [address] [place] [address] from Last 3 Months or Most Recently Relevant to Health Maintenance Insurance [employer] Care Teams Aquatic Habitat Biologist Relationship Specialty Start Date End Date Chris Carias PA [address] [place] [address] PCP - General FAMILY MEDICINE, [place] 10/29/22
--- NOTE | 2025-07-02 15:03 | P.CONAN_ITS ---
Documented by User: Myah Frost NP 07/02/25 15:07 HPI - Anesthesia Eval Consult details Narrative: 65 yr old female for Upper Endoscopy s/p same 02/2025 Echo/stress 10/2024 by PCP for atypical CP were OK [place] [facility] [place]ocytosis -current tx is baby asa PMFSH Active Problems Active Problems: All Active Problems Vision problem (Acute) Asthma (Acute) Allergic rhinitis (Acute) Thrombocytosis (Acute) Hepatitis C antibody detected (Acute) Benzie grade D esophagitis (Acute) Elevated platelet count (Acute) Pure hypercholesterolemia (Acute) Osteopenia (Acute) Varicose veins of both lower extremities with inflammation (Acute) WADR (dyspnea on exertion) (Acute) Varicose veins of both legs with edema (Acute) Varicose veins of ankle (Acute) Chest pain (Acute) Numbness in feet (Acute) Esophageal dysmotility (Acute) History of depression (Acute) History of malignant neoplasm of cervix (Acute) Heart murmur (Acute) Tobacco use disorder (Acute) Escobedo esophagus (Acute) Positive colorectal cancer screening using Cologuard test (Acute) GERD (gastroesophageal reflux disease) (Acute) Past Medical History Medical History Vision problem Asthma Allergic rhinitis Elevated platelet count Pure hypercholesterolemia Osteopenia WARD (dyspnea on exertion) Varicose veins of both legs with edema Varicose veins of ankle Chest pain Numbness in feet Esophageal dysmotility History of depression History of malignant neoplasm of cervix Screening for diabetes mellitus (DM) Heart murmur Tobacco use disorder Escobedo esophagus Positive colorectal cancer screening using Cologuard test Family History Family History Unknown Family history of colon cancer Brother FHx: mental illness Substance abuse Sister Substance abuse Family history of problems with anesthesia: No Surgical History Surgical History Hx of colonoscopy History of esophagogastroduodenoscopy (EGD) S/P surgery on nasal septum History of tonsillectomy History of Problems with Anesthesia: No Social History Social History Household Members: None Housing: House Are you a primary career development engineer to a significant other at home: No Do you presently have visiting nurse or other home services: No Alcohol intake: current Alcohol intake frequency: holidays/special occasions only Patient Tobacco Use Status: Current everyday Tobacco user Tobacco use type: Cigarette Cigarette Packs Per Day: 0.25 Cigarettes Per Day: 1 Years Smoked: 40 e-Cigarette/Vaping Use: Never Used Second Hand Smoke Exposure: No Use of substances other than those prescribed or required for medical reasons: Yes Substance Use Type: Marijuana Are you DNR?: No Advance Directives: No Advance Directives Information Provided: Yes Patient : No : No service: No 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, 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.) Current occupational exposures/hazards: No Cognitive needs: No Hearing needs: Yes (Need ears flushed.) Vision needs: No Meds Allergies Allergy/AdvReac Type Severity Reaction Status Date / Time erythromycin base AdvReac Intermediate Nausea Verified 07/05/25 08:41 colonoscopy prep AdvReac Intermediate Nausea Uncoded 03/07/25 08:25 Exam Pertinent Lab Results Pertinent Lab Results: Laboratory Tests 10/24/24 03/06/25 12:21 10:11 WBC 6.7 RBC 5.09 Hgb 14.4 Hct 43.6 Plt Count 469 H Sodium 140 Potassium 4.8 Chloride 104 Carbon Dioxide 28 BUN 10 Creatinine 0.63 Triglycerides 106 Cholesterol 218 H HDL Cholesterol 64 Assessment and Plan Final Anesthetic Review Family History of Problems with Anesthesia: No History of Problems with Anesthesia: No Documented by User: Paris Parra MD 07/05/25 09:05 [facility] Past Medical History Medical History Vision problem Asthma Allergic rhinitis Elevated platelet count Pure hypercholesterolemia Osteopenia WARD (dyspnea on exertion) Varicose veins of both legs with edema Varicose veins of ankle Chest pain Numbness in feet Esophageal dysmotility History of depression History of malignant neoplasm of cervix Screening for diabetes mellitus (DM) Heart murmur Tobacco use disorder Escobedo esophagus Positive colorectal cancer screening using Cologuard test Family History Family History Unknown Family history of colon cancer Brother FHx: mental illness Substance abuse Sister Substance abuse Surgical History Surgical History Hx of colonoscopy History of esophagogastroduodenoscopy (EGD) S/P surgery on nasal septum History of tonsillectomy Social History Social History Household Members: None Housing: House Are you a primary career development engineer to a significant other at home: No Do you presently have visiting nurse or other home services: No Alcohol intake: current Alcohol intake frequency: holidays/special occasions only Patient Tobacco Use Status: Current everyday Tobacco user Tobacco use type: Cigarette Cigarette Packs Per Day: 0.25 Cigarettes Per Day: 1 Years Smoked: 40 e-Cigarette/Vaping Use: Never Used Second Hand Smoke Exposure: No Use of substances other than those prescribed or required for medical reasons: Yes Substance Use Type: Marijuana Are you DNR?: No Advance Directives: No Advance Directives Information Provided: Yes Patient : No : No service: No 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, 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.) Current occupational exposures/hazards: No Cognitive needs: No Hearing needs: Yes (Need ears flushed.) Vision needs: No Meds Allergies Allergy/AdvReac Type Severity Reaction Status Date / Time erythromycin base AdvReac Intermediate Nausea Verified 07/05/25 08:41 colonoscopy prep AdvReac Intermediate Nausea Uncoded 03/07/25 08:25 Exam Airway Mallampati Class: II TM Dist: >3cm Neck ROM: Full Denture: Upper Partial: Lower Heart: rrr Lungs: cta Assessment and Plan Assessment Anesthesia Assessment: Anesthesia Plan Discussed and Chart Reviewed Final Anesthetic Review NPO: Yes ASA Class: III Final Preanesthetic Review: No Changes in Pt Med Stat, Meds/Allgs Chart Reviewed and Consent Obtained/Reviewed Patient Risk: Intermediate Procedure Risk: Intermediate Anesthetic Plan Anesthetic Plan: MAC: Disposition: Standard PACU
[2025-07-03 12:19] VITALS: BMI 32.7
[2025-07-05 08:35] VITALS: BMI 33.1
[2025-07-05 08:51] VITALS: BP 125/54; PULSE 72; RESP 16; TEMP 36; O2SAT 99
--- NOTE | 2025-07-05 08:59 | MHC.SHP ---
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,dyskinesia Details of Present Illness: Vision problem Asthma Allergic rhinitis Elevated platelet count Pure hypercholesterolemia Osteopenia WARD (dyspnea on exertion) Varicose veins of both legs with edema Varicose veins of ankle Chest pain Numbness in feet Esophageal dysmotility History of depression History of malignant neoplasm of cervix Screening for diabetes mellitus (DM) Heart murmur Tobacco use disorder Escobedo esophagus Positive colorectal cancer screening using Cologuard test Surgical History Hx of colonoscopy History of esophagogastroduodenoscopy (EGD) S/P surgery on nasal septum History of tonsillectomy Present Medications: see Short Stay Collaborative assessment Allergies: Allergies Allergy/AdvReac Type Severity Reaction Status Date / Time erythromycin base AdvReac Intermediate Nausea Verified 07/05/25 08:41 colonoscopy prep AdvReac Intermediate Nausea Uncoded 03/07/25 08:25 Review of Systems Review of Systems Comment: Ten point ROS negative Exam Exam Comment: Gen appear: No acute distress HEENT: no icterus Chest: No overt resp distress Abd: soft, nontender, nondistended Psych: Stable affect, answering questions appropriately Neuro: A/Ox3 noted to move all extremities spontaneously Ext: no peripheral edema Plan Diagnosis/Plan: Unchanged I have reviewed the history and physical and performed a pertinent physical examination on my patient. No changes have occurred unless specified. Time Spent With Patient Time: Total time managing care of this patient today ____ minutes.
[2025-07-05] MEDS: Lactated Ringers 1,000 ML 100 ML IVCONT (09:06)
--- NOTE | 2025-07-05 09:59 | P.OP_ITS ---
Operative Note Operative Note Date of Service: 07/05/25 Narrative: Procedure: Esophagogastroduodenoscopy Endoscopist: Maxine Gill MD Indication: Grade D esophagitis, r.o BE Anesthesia Provider: Sylwia Rodgers CRNA Anesthesia Type: MAC EGD Procedure:?? The procedure, indications, preparation and potential complications were reviewed with the patient, who indicated understanding and gave written informed consent to proceed. A physical exam was performed. A distal attachment was affixed to the tip of the scope and the endoscope was introduced through the mouth, and advanced to the second part of duodenum. The mucosa was carefully examined on slow withdrawal of the endoscope. The patient tolerated the procedure well. There were no immediate complications.? ? EGD Findings:? * Esophagus:? Detailed lower esophagus exam was performed with HDWL and NBI. Severe ulceration and erythema with spontaneous oozing noted from 20 to 25 cm. From 25 cm to 30 cm there was cicrumferential salmon colored mucosa with edema and villous/velvety appearing changes enhanced on NBI exam. There was also 15 mm nodule seen at 24/25 cm with central depression. GE junction was noted at 30 cm displaced by a wide open hiatal hernia with the diaphragmatic hiatus at 33 cm. Cold forceps biopsies were performed q2 cm from 30 to 24 cm. Jumbo forceps biopsies were performed for the esophageal nodule. * Stomach:? Normal mucosa was noted in the stomach. Retroflexion in the cardia was performed that showed Hill grade IV hiatal hernia. * Duodenum:? Normal mucosa was noted in the whole of the examined duodenum. ? EGD Impressions:? * Grade D esophagitis * Abnormal SCM r/o BE (biopsy) * ?? Nodular Escobedo's (biopsy) * Hiatal hernia * Normal stomach * Normal duodenum ?? Recommendations:?? * Follow biopsy results. * Switch esomeprazole to rabeprazole 20 mg BID * Avoid NSAIDs. * Decision re repeat EGD vs referral to tertiary care center contingent on path results Above has been reviewed with the patient.
[2025-07-05 10:31] VITALS: BP 120/53; PULSE 72; RESP 16; TEMP 36.4; O2SAT 98
[2025-07-05 10:46] VITALS: BP 129/47; PULSE 68; RESP 16; TEMP 36.7; O2SAT 98
== END 2025-07-05 11:27 | disposition home or self-care (01) ==
PROVIDERS: PCP Physician Assistant Medical; Visit Provider Internal Medicine
PROC: 0DJ08ZZ Inspection of Upper Intestinal Tract, Via Natural or Artificial Opening Endoscopic (ICD-10-PCS; CPT 43235; principal; 2025-07-05 10:10)
DX: K22.70 Barrett's esophagus without dysplasia (principal); K22.4 Dyskinesia of esophagus; K21.00 Gastro-esophageal reflux disease with esophagitis, without bleeding
CPT/HCPCS: 43239; 88305; 88313; J2704; J3010

== ENCOUNTER → 2025-07-05 07:56 | Outpatient (BNV) | payer MEDICARE, MEDICAID, SELFPAY | PROVIDERS: PCP Physician Assistant Medical; Visit Provider Internal Medicine | DX: K20.90 Esophagitis, unspecified without bleeding (principal); K22.81 Esophageal polyp | CPT/HCPCS: 43239 ==

== ENCOUNTER 2025-07-26 14:56 | Outpatient (AMB) | payer MEDICARE, MEDICAID, SELFPAY ==
--- NOTE | 2025-07-26 15:01 | A.OFFPC_ITS ---
Vital Signs 07/26/25 15:07 Height 5 ft 2 in Weight 183 lb 6 oz BMI 33.5 BP 110/62 Blood Pressure Location Rt brachial Position Sitting Respiration 16 Pulse 83 Pulse Source Pulse Oximeter Temp 98.1 F Temp Source Temporal Artery Scan Pulse Oximetry (%) 98 Oxygen Delivery Method Room Air Intake Visit Reasons: physical exam Intake Note: Molly presents in the office today for her annual physical. Allergies erythromycin base Adverse Reaction (Intermediate, Verified 07/26/25 15:05) Nausea colonoscopy prep Adverse Reaction (Intermediate, Uncoded 07/26/25 15:05) Nausea Tobacco use date assessed: 07/26/25 Fall risk assessment: 1 Fall in past year Last assessed Fall Risk: 07/26/25 Dental Screening Dental Screen Date: 07/26/25 Did you have a dental visit in the last 12 months?: No Did you have a dental problem in the last 6 months where you did not have access to dental care?: No Was dental information given to patient?: Patient declined HPI HPI Comments History of Present Illness Details This is a 65-year-old female with a past medical history of esophageal dysmotility, gastritis, depression, heart murmur, Barretts esophagus and GERD presenting for a physical exam. Hyperlipidemia-I prescribed a statin, but she declined it. She modified diet, and LDL decreased. She underwent a nuclear stress test on 10/24/24 which was negative. The patient also had an echocardiogram on 07/28/2024 which was essentially normal and demonstrated an ejection fraction between 65 and 70%. She was evaluated for chest pain in the past. She has a history of Escobedo's esophagus and a positive Cologuard test which was done before she relocated to [place]. She saw Gastroenterology. Endoscopy demonstrated gastritis and severe acid reflux. She is taking pantoprazole 40 mg twice daily. She will repeat the endoscopy to see if there is improvement. Colonoscopy was negative for malignancy, and she was instructed to repeated the test in 2029. She was switched from pantoprazole to omeprazole to now rabeprazole. She will have the EGD done again in August. The patient saw Dr. Varela for evaluation of thrombocytosis. This is trending down. She is on baby aspirin daily. No iron-deficiency. She has a follow up in September. Eye exam up to date. She will schedule a dental exam. Takes Calcium and vitamin d3. Declines flu vaccine. ROS: Constitutional: No unexplained weight loss, fever, chills or night sweats. Eyes: No vision lost, blurriness, eye pain, eye discharge or redness. ENT: No hearing loss, ear pain, sinus pain or sore throat. Respiratory: No cough, sputum production or hemoptysis Cardiovascular: See HPI. No palpitations or pedal edema. Gastrointestinal: No anorexia, nausea, vomiting or diarrhea. No abdominal pain or blood in stool. Neurologic: No headache, dizziness, syncope Hematologic/Lymphatics: No bleeding or bruising. No painful lymph nodes. Skin: No rash or itching. Endocrine: No cold or heat intolerance. No polyuria or polydipsia. Physical exam: Constitutional: Alert, in no distress. Head: Normocephalic. Eyes: Pupils are equal, round and reactive to light. Extraocular muscles intact. Ear, Nose and Throat: Canals clear. TMs normal. Normal nasal mucosa. No nasal discharge. No oral lesions. Neck: Supple, Full range of motion. No lymphadenopathy. No palpable thyroid masses. Respiratory: Clear to auscultation. Cardiovascular: S1 S2 regular. No murmurs. I/ systolic murmur Gastrointestinal: Abdomen soft, non-tender, non-distended. Normal bowel sounds. No palpable masses. Neurologic: No focal neurological deficits. Psychiatric: Normal mood and affect [facility] Medical History (Updated 07/27/25 @ 17:28 by WALTER Quiles) Routine physical examination Vision problem Asthma Allergic rhinitis Elevated platelet count Pure hypercholesterolemia Osteopenia WARD (dyspnea on exertion) Varicose veins of both legs with edema Varicose veins of ankle Chest pain Numbness in feet Esophageal dysmotility History of depression History of malignant neoplasm of cervix Screening for diabetes mellitus (DM) Heart murmur Tobacco use disorder Escobedo esophagus Positive colorectal cancer screening using Cologuard test Surgical History Hx of colonoscopy History of esophagogastroduodenoscopy (EGD) S/P surgery on nasal septum History of tonsillectomy Family History Unknown Family history of colon cancer Brother FHx: mental illness Substance abuse Sister Substance abuse Social History (Updated 07/26/25 @ 15:07 by Mikayla Uribe CMA) Household Members: None Housing: House Are you a primary skin care therapist to a significant other at home: No Do you presently have visiting nurse or other home services: No Alcohol intake: current Alcohol intake frequency: holidays/special occasions only Patient Tobacco Use Status: Former Tobacco user Tobacco use type: Cigarette Cigarette Packs Per Day: 0.25 Cigarettes Per Day: 1 Years Smoked: 40 e-Cigarette/Vaping Use: Never Used Second Hand Smoke Exposure: No Substance Use Type: Marijuana service: No 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 1. Little interest or pleasure in doing things: several days 2. Feeling down, depressed, or hopeless: several days 3. Trouble falling or staying asleep, or sleeping too much: several days 4. Feeling tired or having little energy: several days 5. Poor appetite or overeating: several days 6. Feeling bad about yourself - or that you are a failure or have let yourself or your family down: several days 7. Trouble concentrating on things, such as reading the newspaper or watching television: several days 8. Moving or speaking so slowly that other people could have noticed. Or the opposite - being so fidgety or restless that you have been moving around a lot more than usual: several days 9. Thoughts that you would be better off or of hurting yourself in some way: not at all Total score: 8 Depression Screening Interpretation: Positive Depression Screening Follow-up: Existing condition Depression Screening Done: Yes Source: Developed by Drs. Fracisco Edward, Klaudia Peters, Main Grant and colleagues, with an educational felipe from [employer]. Thrive Questionnaire Date Thrive assessed: 10/06/24 I am a: Patient What is your living situation today?: I have a place to live, but I am worried about losing it in the future Within the past 12 months, did the food you bought not last and you didn't have the money to get more?: Never true Within the past 12 months, did you worry whether your food would run out before you got money to buy more?: Sometimes True Do you have trouble paying for medicines?: No Do you have trouble getting transportation to medical appointments?: No Do you have trouble paying your heating and electricity bill?: Yes Do you have trouble taking care of your child, family member or friend?: No Do you have trouble with day-to-day activities such as bathing, preparing meals, shopping, managing finances, etc.?: Yes Are you currently unemployed and looking for a job?: No Are you interested in more education?: No Currently or been in a relationship where the following occur: I choose not to answer THRIVE Score: 3 HAYDEN-7 AMB Questionnaire HAYDEN-7 Date HAYDEN - 7 assessed: 01/22/25 Feeling nervous, anxious, or on edge: 1 = Several days Not being able to stop or control worryin = Several days Worrying too much about different things: 1 = Several days Trouble relaxin = Several days Being so restless that it is hard to sit still: 1 = Several days Becoming easily annoyed or irritable: 1 = Several days Feeling afraid as if something awful might happen: 1 = Several days Total HAYDEN-7 score (0-4 normal; 5-9 mild; 10-14 moderate; 15-21 severe): 7 Source: Developed by Drs. Fracisco Edward, Klaudia Peters, Main Grant and colleagues, with an educational felipe from [employer]. HAYDEN-7 Assessment Billing HAYDEN-7 Assessment Tool: HAYDEN-7 Assessment 21902 Physical exam (Primary Care) Vital Signs: Last Vital Signs Temp 98.1 F 07/26/25 15:07 Pulse 83 07/26/25 15:07 Resp 16 07/26/25 15:07 BP 110/62 07/26/25 15:07 Pulse Ox 98 07/26/25 15:07 Oxygen Delivery Method Room Air 07/26/25 15:07 BMI result Body Mass Index 33.5 Tobacco/Smoking Status: Tobacco use Status Tobacco use date assessed 07/26/25 07/26/25 15:11 Patient Tobacco Use Status Former Tobacco user 07/26/25 15:11 Tobacco use type Cigarette 07/26/25 15:07 e-Cigarette/Vaping Use Never Used 07/26/25 15:07 PHQ-9: PHQ-9 Score PHQ-9: Total score 8 07/26/25 15:41 Depression Screening Interpretation: Positive Depression Screening Follow-up: Existing condition Thrive Assessment: Date of Thrive Assessment Date Thrive assessed 10/06/24 07/26/25 15:03 Currently or been in a relationship where the following occur: I choose not to answer Coding Level of Care Code Est Pt Prev Care >65y(51992) Diagnoses Routine physical examination Z00.00 Additional Codes HAYDEN-7 Assessment Billing - HAYDEN-7 Assessment Tool: HAYDEN-7 Assessment 36845 ([id number]) Assessment & Plan Assessment & Plan (1) Routine physical examination: Code(s): Z00.00 - Encounter for general adult medical examination without abnormal findings Category: Medical Plan Patient is seen today for a routine physical. As part of this visit we reviewed the following issues, which are considered and essential part of preventative health in this age group: - Breast Cancer screening - Annual Public Address System Mechanic exam - Screening for colon cancer - Blood pressure screening - Cholesterol screening - Osteoporosis prevention including calcium/vitamin D intake, weight bearing exercise & smoking cessation - Nutritional and exercise counseling - Counseling of injury prevention including fire prevention, smoke alarms and seat belt usage - Screening for depression- positive screening. Patient declines medications and therapy. - Education about skin cancer - Recommendations about immunizations - Recommendation of an eye exam - Screening for substance abuse Follow up in 4 months. Orders: Orders MM screening mammo BI 09/17/25 Z12.31 - Encounter for screening mammogram for malignant neoplasm of breast Ferritin 07/26/25 D75.839 - Thrombocytosis, unspecified, E78.00 - Pure hypercholesterolemia, unspecified, K21.9 - Gastro-esophageal reflux disease without esophagitis, R79.89 - Other specified abnormal findings of blood chemistry, Z00.00 - Encounter for general adult medical examination without abnormal findings Comprehensive Met. Panel 07/26/25 D75.839 - Thrombocytosis, unspecified, E78.00 - Pure hypercholesterolemia, unspecified, K21.9 - Gastro-esophageal reflux disease without esophagitis, R79.89 - Other specified abnormal findings of blood chemistry, Z00.00 - Encounter for general adult medical examination without abnormal findings Vitamin D 25-OH (D2 and D3) 07/26/25 D75.839 - Thrombocytosis, unspecified, E78.00 - Pure hypercholesterolemia, unspecified, K21.9 - Gastro-esophageal reflux disease without esophagitis, M85.80 - Other specified disorders of bone density and structure, unspecified site, R79.89 - Other specified abnormal findings of blood chemistry, Z00.00 - Encounter for general adult medical examination without abnormal findings Lipid Panel 07/26/25 D75.839 - Thrombocytosis, unspecified, E78.00 - Pure hypercholesterolemia, unspecified, E78.5 - Hyperlipidemia, unspecified, K21.9 - Gastro-esophageal reflux disease without esophagitis, R79.89 - Other specified abnormal findings of blood chemistry, Z00.00 - Encounter for general adult medical examination without abnormal findings Complete Blood Count Auto Diff 07/26/25 D75.839 - Thrombocytosis, unspecified, E78.00 - Pure hypercholesterolemia, unspecified, K21.9 - Gastro-esophageal reflux disease without esophagitis, R79.89 - Other specified abnormal findings of blood chemistry, Z00.00 - Encounter for general adult medical examination without abnormal findings IRON PROFILE 07/26/25 D75.839 - Thrombocytosis, unspecified, E78.00 - Pure hypercholesterolemia, unspecified, K21.9 - Gastro-esophageal reflux disease without esophagitis, R79.89 - Other specified abnormal findings of blood chemistry, Z00.00 - Encounter for general adult medical examination without abnormal findings
[2025-07-26 15:07] VITALS: BP 110/62; PULSE 83; RESP 16; TEMP 36.7; O2SAT 98; BMI 33.5
--- OUTSIDE RECORDS SUMMARY | 2025-07-26 20:25 | XMS_ITS | Clinical Summary ---
Author Organization [facility] Address [address] [place] [id number] Phone Care Team Providers Care Human Resource Internship Name Role Phone Mayo Pablo NP Primary Care Provider [phone] Allergies Active Allergy Reactions Criticality Noted Date Comments Azithromycin GI intolerance 10/08/2024 Medical History Medical History Date Comments Cancer ([facility] V24, [facility] V28) Hypertension Social History Tobacco Use Types [...] Years (1 of 2 - PCV) 1978 RSV Immunization Adult Patients (1 - Risk 50-74 years 1-dose series) 2009 Zoster Vaccines (1 of 2) 2009 Breast Cancer Screening 05/19/2018 05/19/2016 Hepatitis B Vaccines (1 of 3 - Risk 3-dose series) 2019 Depression Screening 09/06/2024 Falls Risk Assessment 10/08/2024 Hepatitis C Screening 10/08/2024 Medicare Annual Wellness Visit 10/08/2024 Osteoporosis Screening (Bone Density Screening) 10/08/2024 Social Influencers of Health Screening 10/08/2024 COVID-19 Vaccine (1 - 2024-2 6 season) 2025 Influenza Vaccine (#1) 2025 Colorectal [...] patient's age to complete this topic Insurance [place]SIE PATRICK [id number] MEDICAID - [place] MEDICARE ADVANTAGE Care Teams Human Resource Internship Relationship Specialty Start Date End Date Mayo Pablo NP [address] [place] [address] PCP - General Family Medicine 10/08/24
== END 2025-07-26 15:42 | disposition home or self-care (01) ==
LOC: HO.HMCFM 14:57
PROVIDERS: PCP Physician Assistant Medical; Visit Provider Physician Assistant Medical
DX: Z00.00 Encounter for general adult medical examination without abnormal findings (principal); D75.839 Thrombocytosis, unspecified; K21.9 Gastro-esophageal reflux disease without esophagitis; J45.909 Unspecified asthma, uncomplicated; K22.710 Barrett's esophagus with low grade dysplasia; E78.00 Pure hypercholesterolemia, unspecified; J30.9 Allergic rhinitis, unspecified

== ENCOUNTER → 2025-07-26 14:56 | Outpatient (BNVA) | payer MEDICARE, MEDICAID, SELFPAY | PROVIDERS: PCP Physician Assistant Medical; Visit Provider Physician Assistant Medical | DX: Z00.00 Encounter for general adult medical examination without abnormal findings (principal); E78.00 Pure hypercholesterolemia, unspecified; K21.9 Gastro-esophageal reflux disease without esophagitis; R79.89 Other specified abnormal findings of blood chemistry; D75.839 Thrombocytosis, unspecified; Z13.39 Encounter for screening examination for other mental health and behavioral disorders | CPT/HCPCS: 96127; 99397 ==

== ENCOUNTER 2025-08-23 11:09 | Outpatient (REF) | payer MEDICARE, MEDICAID, SELFPAY ==
[2025-08-23 11:24] LABS: MANUAL DIFF FLAG NO
[2025-08-23 11:37] LABS: Hematocrit 49.4 % (37.0-47.0); Hemoglobin 16.5 g/dl (12.0-16.0); Imm Gran Abs Auto 0.01 X10*3/uL (0.00-0.03); Imm Gran Pct Auto 0.2 % (0.0-0.4); Lymphocytes Absolute Auto 1.8 X10*3/uL (1.2-4.9); Mean Corpuscular HGB Conc 33.4 g/dl (31.0-35.0); Mean Corpuscular Hemoglobin 29.4 pg (27.0-33.0); Mean Corpuscular Volume 88.1 fL (80.0-98.0); NRBC Abs Auto 0.000 X10*3/uL (0.0-0.012); NRBC Pct Auto 0.0 /100WBC (0.0-0.2); Platelet Count 488 X10*3/uL (160-400); Red Blood Count 5.61 X10*6/uL (4.20-5.50); White Blood Count 6.6 X10*3/uL (4.8-10.8)
[2025-08-23 13:45] LABS: Alanine Aminotransferase 17 U/L (0-31); Albumin Level 4.5 g/dL (3.5-5.0); Alkaline Phosphatase 100 U/L (39-117); Anion Gap 13 (12-20); Aspartate Amino Transferase 32 U/L (5-31); Blood Urea Nitrogen 21 mg/dL (9-16); Calcium 9.8 mg/dL (8.4-10.2); Carbon Dioxide 26 mmol/L (22-29); Chloride 102 mmol/L (96-108); Cholesterol 271 mg/dL (<200); Estimated Glomerular Filt Rate > 60; HDL Cholesterol 76 mg/dL (>40); Iron 122 mcg/dL (30-160); Percent Iron Saturation 34 % (15-50); Potassium 4.6 mmol/L (3.3-5.1); Sodium 136 mmol/L (135-145); Total Iron Binding Capacity 358 mcg/dL (228-428); Total Protein 7.7 g/dL (6.5-8.0); Triglycerides 173 mg/dL (<150); Unsaturated Iron Binding 236 ug/dL
[2025-08-23 14:10] LABS: Ferritin 47 ng/mL (10-250)
--- OUTSIDE RECORDS SUMMARY | 2025-08-23 14:38 | XMS_ITS | Clinical Summary ---
Author Organization [facility] Address [address] [place] [id number] Phone Care Team Providers Care Construction Recruiter Name Role Phone Mayo Pablo NP Primary Care Provider [phone] Allergies Active Allergy Reactions Criticality Noted Date Comments Azithromycin GI intolerance 10/08/2024 Medical History Medical History Date Comments Cancer ([facility] V24, [facility] V28) Hypertension Social History Tobacco Use [...] Orientation Straight 10/08/2024 7: 44 PM EST Last Filed Vital Signs Vital Sign Reading [...] to complete this topic Insurance CASSIE PATRICK [id number] [place]ICA[place] BLUE [place] - [place] MED[place] ADVANTAGE Care Teams Construction Recruiter Relationship Specialty Start Date End Date Mayo Pablo NP [address] [place] [address] PCP - General Family Medicine 10/08/24
== END 2025-08-23 11:10 | disposition home or self-care (01) ==
LOC: HO.LAB 11:09
PROVIDERS: PCP Physician Assistant Medical; Visit Provider Physician Assistant Medical
DX: Z00.00 Encounter for general adult medical examination without abnormal findings (principal); M85.80 Other specified disorders of bone density and structure, unspecified site; E78.00 Pure hypercholesterolemia, unspecified; K21.9 Gastro-esophageal reflux disease without esophagitis; D75.839 Thrombocytosis, unspecified; R79.89 Other specified abnormal findings of blood chemistry; E78.5 Hyperlipidemia, unspecified
CPT/HCPCS: 36415; 80053; 80061; 82306; 82728; 83540; 85025

== ENCOUNTER 2025-08-23 11:24 | Day surgery (SDC) | payer MEDICARE, MEDICAID, SELFPAY ==
--- NOTE | 2025-08-20 14:16 | HO.ANESPROP2 ---
Documented by User: Myah Frost NP 08/20/25 14:20 HPI - Anesthesia Eval Consult details Narrative: 65 yr old female for upper endoscopy s/p endoscopy with TIVA 06/2025 Echo/stress 10/2024 by PCP for atypical CP were OK [place] [facility] [place] for thrombocytosis -current tx is baby asa Tobacco use (?former), marijuana use PMFSH Active Problems Active Problems: All Active Problems Routine physical examination (Acute) Escobedo's esophagus with low grade dysplasia (Acute) Vision problem (Acute) Asthma (Acute) Allergic rhinitis (Acute) Thrombocytosis (Acute) Hepatitis C antibody detected (Acute) Barren grade D esophagitis (Acute) Elevated platelet count (Acute) Pure hypercholesterolemia (Acute) Osteopenia (Acute) Varicose veins of both lower extremities with inflammation (Acute) WARD (dyspnea on exertion) (Acute) Varicose veins of both legs with edema (Acute) Varicose veins of ankle (Acute) Chest pain (Acute) Numbness in feet (Acute) Esophageal dysmotility (Acute) History of depression (Acute) History of malignant neoplasm of cervix (Acute) Heart murmur (Acute) Tobacco use disorder (Acute) Escobedo esophagus (Acute) Positive colorectal cancer screening using Cologuard test (Acute) GERD (gastroesophageal reflux disease) (Acute) Past Medical History Medical History Vision problem Asthma Allergic rhinitis Elevated platelet count Pure hypercholesterolemia Osteopenia Varicose veins of both legs with edema Numbness in feet Esophageal dysmotility History of depression History of malignant neoplasm of cervix Screening for diabetes mellitus (DM) Heart murmur Tobacco use disorder Escobedo esophagus Positive colorectal cancer screening using Cologuard test Family History Family History Unknown Family history of colon cancer Brother FHx: mental illness Substance abuse Sister Substance abuse Family history of problems with anesthesia: No Surgical History Surgical History Hx of colonoscopy History of esophagogastroduodenoscopy (EGD) S/P surgery on nasal septum History of tonsillectomy History of Problems with Anesthesia: No Social History Social History Household Members: None Housing: House Are you a primary pulmonary care nurse to a significant other at home: No Do you presently have visiting nurse or other home services: No Alcohol intake: current Alcohol intake frequency: holidays/special occasions only Patient Tobacco Use Status: Former Tobacco user Tobacco use type: Cigarette Cigarette Packs Per Day: 0.25 Cigarettes Per Day: 1 Years Smoked: 40 e-Cigarette/Vaping Use: Never Used Second Hand Smoke Exposure: No Substance Use Type: Marijuana Substance Use Frequency: Occasionally Have you been hit, kicked, punched, or otherwise hurt by someone within the past year? 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 The visually estimated ejection fraction is between 65-70%. Spectral Doppler is indicative of a normal filling pattern. Right Ventricle Normal right ventricular cavity size and systolic function. Cardiolite Stress Test 10/2024 IMPRESSION: 1. Myocardial perfusion imaging study shows normal myocardial perfusion. 2. Gated LVEF is 68% during stress and 62% during rest. 3. Transient ischemic dilatation not present. EKG component of the test reported separately. Assessment and Plan Final Anesthetic Review Family History of Problems with Anesthesia: No History of Problems with Anesthesia: No Documented by User: Keiry Noriega MD 08/23/25 13:04 [facility] Past Medical History Medical History Vision problem Asthma Allergic rhinitis Elevated platelet count Pure hypercholesterolemia Osteopenia Varicose veins of both legs with edema Numbness in feet Esophageal dysmotility History of depression History of malignant neoplasm of cervix Screening for diabetes mellitus (DM) Heart murmur Tobacco use disorder Escobedo esophagus Positive colorectal cancer screening using Cologuard test Family History Family History Unknown Family history of colon cancer Brother FHx: mental illness Substance abuse Sister Substance abuse Surgical History Surgical History Hx of colonoscopy History of esophagogastroduodenoscopy (EGD) S/P surgery on nasal septum History of tonsillectomy Social History Social History Household Members: None Housing: House Are you a primary pulmonary care nurse to a significant other at home: No Do you presently have visiting nurse or other home services: No Alcohol intake: current Alcohol intake frequency: holidays/special occasions only Patient Tobacco Use Status: Former Tobacco user Tobacco use type: Cigarette Cigarette Packs Per Day: 0.25 Cigarettes Per Day: 1 Years Smoked: 40 e-Cigarette/Vaping Use: Never Used Second Hand Smoke Exposure: No Substance Use Type: Marijuana Substance Use Frequency: Occasionally Have you been hit, kicked, punched, or otherwise hurt by someone within the past year? 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.) Current occupational exposures/hazards: No Cognitive needs: No Hearing needs: Yes (Need ears flushed.) Vision needs: No Meds Allergies Allergy/AdvReac Type Severity Reaction Status Date / Time erythromycin base AdvReac Intermediate Nausea Verified 08/23/25 11:54 colonoscopy prep AdvReac Intermediate Nausea Uncoded 08/23/25 11:54 Exam Airway Mallampati Class: II TM Dist: >3cm Neck ROM: Full Heart: rrr Lungs: cta Assessment and Plan Assessment Anesthesia Assessment: Anesthesia Plan Discussed and Chart Reviewed Final Anesthetic Review NPO: Yes ASA Class: II Final Preanesthetic Review: No Changes in Pt Med Stat, Meds/Allgs Chart Reviewed, Consent Obtained/Reviewed and Anes Risks/Benef Reviewed Patient Risk: Low Procedure Risk: Low Anesthetic Plan Anesthetic Plan: MAC: and Agree w/ Assess. and Plan Disposition: Standard PACU
[2025-08-21 13:47] VITALS: BMI 33.5
[2025-08-23 11:54] VITALS: BMI 33.1
[2025-08-23] MEDS: Lactated Ringers 1,000 ML 100 ML IVCONT (12:10)
[2025-08-23 12:19] VITALS: BP 125/56; PULSE 93; RESP 18; TEMP 36.7; O2SAT 98
--- NOTE | 2025-08-23 12:57 | MHC.SHP ---
Pre-Procedural Eval Section A - 24 Hr Update-Section A only Date of Service: 08/23/25 Section B - Complete if H&P > 30 days Chief Complaint: Escobedo's esophagus with low grade dysplasia Details of Present Illness: Vision problem Asthma Allergic rhinitis Elevated platelet count Pure hypercholesterolemia Osteopenia WARD (dyspnea on exertion) Varicose veins of both legs with edema Varicose veins of ankle Chest pain Numbness in feet Esophageal dysmotility History of depression History of malignant neoplasm of cervix Screening for diabetes mellitus (DM) Heart murmur Tobacco use disorder Escobedo esophagus Positive colorectal cancer screening using Cologuard test Surgical History Hx of colonoscopy History of esophagogastroduodenoscopy (EGD) S/P surgery on nasal septum History of tonsillectomy Present Medications: see Short Stay Collaborative assessment Allergies: Allergies Allergy/AdvReac Type Severity Reaction Status Date / Time erythromycin base AdvReac Intermediate Nausea Verified 08/23/25 11:54 colonoscopy prep AdvReac Intermediate Nausea Uncoded 08/23/25 11:54 Review of Systems Review of Systems Comment: Ten point ROS negative Exam Exam Comment: Gen appear: No acute distress HEENT: no icterus Chest: No overt resp distress Abd: soft, nontender, nondistended Psych: Stable affect, answering questions appropriately Neuro: A/Ox3 noted to move all extremities spontaneously Ext: no peripheral edema Plan Diagnosis/Plan: Unchanged I have reviewed the history and physical and performed a pertinent physical examination on my patient. No changes have occurred unless specified. Pls note EGD is being done on rabeprazole 20 BID. Time Spent With Patient Time: Total time managing care of this patient today ____ minutes.
--- NOTE | 2025-08-23 13:31 | P.OP_ITS ---
Operative Note Operative Note Date of Service: 08/23/25 Narrative: Procedure: Esophagogastroduodenoscopy Endoscopist: Maxine Gill MD Indication: BEwith LGD, Grade D esophagitis, Anesthesia Provider: Evans Kelley CRNA Anesthesia Type: MAC EGD Procedure:?? The procedure, indications, preparation and potential complications were reviewed with the patient, who indicated understanding and gave written informed consent to proceed. A physical exam was performed. A distal attachment was affixed to the tip of the scope and the endoscope was introduced through the mouth, and advanced to the second part of duodenum. The mucosa was carefully examined on slow withdrawal of the endoscope. The patient tolerated the procedure well. There were no immediate complications.? ? EGD Findings:? * Esophagus:? Detailed esophagus exam was performed with HDWL and NBI. Circumferential salmon colored mucosa from 32 to 28 cm. Edema and villous/velvety appearing changes noted which were enhanced on NBI exam. Two erosions measuring up to 26 cm without any active bleeding, not crossing the mucosal folds. No nodule was noted on exam today (to recall she did have a nodule on exam last time). GE junction was noted at 32 cm displaced by a wide open hiatal hernia with the diaphragmatic hiatus at 35 cm. Cold forceps biopsies were performed q1 cm from 32 to 28 cm. This was followed by WATS-3D liquid biopsy as per usual fashion. * Stomach:? Normal mucosa was noted in the stomach. Retroflexion in the cardia was performed that showed Hill grade IV hiatal hernia. * Duodenum:? Normal mucosa was noted in the whole of the examined duodenum. ? EGD Impressions:? 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 Recommendations:?? * Follow biopsy results. * Patient has persistent esophagitis despite high dose rabeprazole 20 mg BID * Will favor escalation to Vonoprazan 20 mg once daily * Avoid NSAIDs. * Will likely need repeat EGD within 3-4 months based on results vs referral to tertiary care center Above has been reviewed with the patient.
[2025-08-23 13:32] VITALS: BP 121/68; PULSE 77; TEMP 36.1; O2SAT 97
[2025-08-23 13:45] VITALS: BP 105/64; PULSE 77; TEMP 36.1; O2SAT 97
[2025-08-23 14:00] VITALS: BP 106/59; PULSE 77; O2SAT 97
[2025-08-23 14:15] VITALS: BP 111/42; PULSE 75; TEMP 36.1; O2SAT 97
== END 2025-08-23 15:00 | disposition home or self-care (01) ==
PROVIDERS: PCP Physician Assistant Medical; Visit Provider Internal Medicine
PROC: 0DJ08ZZ Inspection of Upper Intestinal Tract, Via Natural or Artificial Opening Endoscopic (ICD-10-PCS; CPT 43235; principal; 2025-08-23 14:20)
DX: K22.710 Barrett's esophagus with low grade dysplasia (principal); K21.00 Gastro-esophageal reflux disease with esophagitis, without bleeding; K22.70 Barrett's esophagus without dysplasia; K44.9 Diaphragmatic hernia without obstruction or gangrene; E78.00 Pure hypercholesterolemia, unspecified
CPT/HCPCS: 43239; 36415; 80053; 80061; 82306; 82728; 83540; 85025; 88305; J2003; J2704

== ENCOUNTER → 2025-08-23 11:24 | Outpatient (BNV) | payer MEDICARE, MEDICAID, SELFPAY | PROVIDERS: PCP Physician Assistant Medical; Visit Provider Internal Medicine | DX: K22.710 Barrett's esophagus with low grade dysplasia (principal); K20.90 Esophagitis, unspecified without bleeding | CPT/HCPCS: 43239 ==

== ENCOUNTER → 2025-09-05 08:30 | Outpatient (AMB) | payer MEDICARE, MEDICAID, SELFPAY ==
--- NOTE | 2025-09-05 08:31 | A.OFFVIS_ITS ---
Intake Visit Reasons: s/p egd Intake Note: Molly presents as a telehealth to go over EGD results. CC: She is unsure which medication but she states [facility]. I was going to submit in the CoverMyMeds but she was not sure if it the Vonoprazan or Esomperazole..she states she had pains after EGD but now she is feeling okay. 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 Pt had a cologuard test in February 2023 which was POSITIVE however she then moved from [place] May 2023 before colo could be done (prev GI Dr Saw Sparks in [facility]). Once she estabished care with local PCP winter 2022 a referral was generated but a colo could not take place due to multiple barriers. Was able to switch insurance and PCP again earlier this year and is now here for follow up colonoscopy. Pt herself reports having a change in bowel habits and occ blood in stool. It is unclear why a cologuard was ordered and not a diagnostic colonoscopy for these sx. Pt also has hx of hiatal hernia and reported BE and at one point was getting EGDs every 1-2 years. Takes pantoprazole 40 once a day. Last endoscopy: EGD/colo 2018 - BE (pt told was improving), no polyps. Fam hx of CRC in pat grandfather in his 70s. Sister with UC diagnosed in her 20s with surgical history. Pt smokes 2-4 cigs/day prev 1PPD x 40 years. No etOH use. Occ takes ibuprofen. PCP notes reviewed - also ? of HCV. Pt reports having an admission in the hospital for yellow eyes in 80s which was determined to be of unknown cause. 11/08/24: 1. Grade D esophagitis 2. Hiatal hernia 3. Normal stomach 4. Normal duodenum 5. x2 right colon AVMs 6. Diverticulosis 7. Internal and external hemorrhoids 11/27/24: Here for follow up. No active issues. Was taking omeprazole once daily and advised to increase to BID x 8 weeks. Pt also aware to repeat colo in 5 years. 02/09/25: EGD Esophagus:? Esophagitis was again ordered in the lower esophagus from 25-28 cm, but improved from before. Spontaneous oozing noted from the esophagitis as well as villiform circumferential nodular mucosa at GE junction 28 cm. No ulceration noted on HDWL and NBI exam. Cold forceps biopsies were taken from the nodule. Irregular squamocolumnar mucosa was noted at 25 cm (above esophagitis). Cold forceps biopsies were taken for histology. At the end of procedure, hemo spray was applied. Path: A. GE junction, nodule: Polypoid inflamed and eroded squamocolumnar mucosa with reactive changes; no intestinal metaplasia or dysplasia identified. B. Esophagus, 25 cm, biopsy: Eroded and ulcerated squamous mucosa; no atypia or fungi identified 03/07/25: Here as televisit for post procedure follow up. No acute GI sx. Reports occ forgets to take BID dosing of pantoprazole. EGD findings and path reviewed. Will need another EGD after esophagitis has healed up for accurate assessment of underlying mucosa. 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 Esophagus, at 32 cm, biopsy: Columnar mucosa with hyperplasia, acute and chronic inflammation, and intestinal metaplasia consistent with Escobedo's mucosa; negative for dysplasia. B. Esophagus, at 31 cm, biopsy: Squamous mucosa with focal intraepithelial neutrophils and eosinophils (up to 3 per high-power field) consistent with esophagitis, and columnar mucosa with hyperplasia, inflammation, and intestinal metaplasia consistent with Escobedo's mucosa; negative for dysplasia. C. Esophagus, at 30 cm, biopsy: Squamous mucosa with focal intraepithelial neutrophils and eosinophils (up to 8 per high-power field) consistent with esophagitis, and columnar mucosa with hyperplasia, inflammation, and intestinal metaplasia consistent with Escobedo's mucosa; negative for dysplasia. D. Esophagus, at 29 cm, biopsy: Columnar mucosa with hyperplasia, acute and chronic inflammation, granulation tissue and possible erosion, and intestinal metaplasia consistent with Escobedo's mucosa; negative for dysplasia. E. Esophagus, at 28 cm, biopsy: Squamous mucosa with focal intraepithelial neutrophils and eosinophils (up to 8 per high-power field) consistent with esophagitis, and columnar mucosa with hyperplasia, acute and chronic inflammation, granulation tissue, and intestinal metaplasia consistent with Escobedo's mucosa; negative for dysplasia. 09/05/25: Here for telehealth for follow up. Reports has not gotten voquezna yet. Not covered by insurance. No notification from pharmacy re this. Will get the PA initiated. In terms of EGD, esophagitis much improved NO DYSPLASIA noted on most recent bx which is reassuring. Pt tells me she is planning to move back to [place] spring 2025. [facility] Medical History Vision problem Asthma Allergic rhinitis Elevated platelet count Pure hypercholesterolemia Osteopenia Varicose veins of both legs with edema Numbness in feet Esophageal dysmotility History of depression History of malignant neoplasm of cervix Screening for diabetes mellitus (DM) Heart murmur Tobacco use disorder Escobedo esophagus Positive colorectal cancer screening using Cologuard test Surgical History Hx of colonoscopy History of esophagogastroduodenoscopy (EGD) S/P surgery on nasal septum History of tonsillectomy Family History Unknown Family history of colon cancer Brother FHx: mental illness Substance abuse Sister Substance abuse Social History Household Members: None Housing: House Are you a primary healthcare administrative assistant to a significant other at home: No Do you presently have visiting nurse or other home services: No Alcohol intake: current Alcohol intake frequency: holidays/special occasions only Patient Tobacco Use Status: Former Tobacco user Tobacco use type: Cigarette Cigarette Packs Per Day: 0.25 Cigarettes Per Day: 1 Years Smoked: 40 e-Cigarette/Vaping Use: Never Used Second Hand Smoke Exposure: No Substance Use Type: Marijuana service: No 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, 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.) Current occupational exposures/hazards: No Cognitive needs: No Hearing needs: Yes (Need ears flushed.) Vision needs: No Review of Systems Const All systems reviewed & are unremarkable except as noted in HPI and below Physical Exam Exam Exam: Video visit: No acute distress No icterus noted No facial asymmetry Speaking in full sentences Telehealth Telehealth Telehealth Platform: [employer] Location of provider rendering services: practice address Location of patient: address on file Patient Identification confirmed using: Name, : Yes Telehealth method: video Patient verbally consented to treatment: Yes Patient verbally consented to billing insurance company: Yes Patient informed of any privacy concerns related to visit: Yes Minutes spent on Phone/Video with Pt.: 16 Assessment & Plan Assessment & Plan (1) Escobedo's esophagus with low grade dysplasia: Code(s): K22.710 - Escobedo's esophagus with low grade dysplasia Category: Medical (2) GERD (gastroesophageal reflux disease): Code(s): K21.9 - Gastro-esophageal reflux disease without esophagitis Category: Medical Qualifiers: Esophagitis presence: without esophagitis Qualified Code(s): K21.9 - Gastro-esophageal reflux disease without esophagitis (3) Esophagitis determined by endoscopy: Code(s): K20.90 - Esophagitis, unspecified without bleeding Category: Medical Plan With the patient that has incomplete improvement of esophagitis on rabeprazole 20 mg b.i.d. dosing-this is one of the more potent PPIs and she is on max dose per day. Strongly recommend escalation to PCABs. Will request RN to start PA for this. She is to cont rabeprazole 20 BID until Voquezna available. In terms of BE, no dysplasia seen on most recent EGD. WATS-3D results awaited. Will update her once available. Plan was to schedule EGD in 6 months however due to her imminent move to a different state, will book this early, in December 2025 instead. Orders: Referrals GI Procedure Notification K22.710 - Escobedo's esophagus with low grade dysplasia Coding Level of Care Code Tele Est Pt Level 5 (23667) Add On Problem Visit Only Diagnoses Escobedo's esophagus with low grade dysplasia K22.710 Gastroesophageal reflux disease without esophagitis K21.9 Esophagitis presence: without esophagitis Esophagitis determined by endoscopy K20.90
--- OUTSIDE RECORDS SUMMARY | 2025-09-05 08:33 | XMS_ITS | Clinical Summary ---
Author Organization [facility] Address [address] [place] [phone] Phone Care Team Providers Care Topstitcher Lockstitch Name Role Phone Mayo Pablo NP Primary Care Provider [phone] Allergies Active Allergy Reactions Criticality Noted Date Comments Azithromycin GI intolerance 10/08/2024 Medical History Medical History Date Comments Cancer ([facility] V24, [facility] V28) Hypertension Social History Tobacco Use Types [...] to complete this topic Insurance CASSIE PATRICK [id number] MEDICAID - [place] Care Teams Topstitcher Lockstitch Relationship Specialty Start Date End Date Mayo Pablo NP [address] [place] [address] PCP - General Family Medicine 10/08/24
== END ==
LOC: HO.HGI 08:30
PROVIDERS: PCP Physician Assistant Medical; Visit Provider Internal Medicine
DX: K22.710 Barrett's esophagus with low grade dysplasia (principal); K21.9 Gastro-esophageal reflux disease without esophagitis; K20.90 Esophagitis, unspecified without bleeding
CPT/HCPCS: 99214; G2211